=== PATIENT | male | born 1955 | race Caucasian/White ===

== ENCOUNTER 2017-11-15 21:50 | Inpatient (IN) | payer OTHER ==
[2017-11-15] MEDS ORDERED: AZITHROMYCIN 250 MG TAB ONE (22:43)
[2017-11-15] MEDS ORDERED: predniSONE 20 MG TAB ONE (22:43)
[2017-11-15] MEDS ORDERED: ALBUTEROL 2.5 MG/3 ML NEB SOL ONE (22:43)
[2017-11-15] MEDS ORDERED: IPRATROPIUM BROM 0.5MG/2.5ML ONE (22:43)
[2017-11-15] MEDS ORDERED: CEFTRIAXONE/SWI 1gm 0 GM/0 ML SYR ONE (22:44)
[2017-11-15] MEDS ORDERED: NA CHLORIDE 0.9% 2,000 ML ONE (22:44)
[2017-11-15] MEDS ORDERED: Levofloxacin500mg IV 500 MG/100 ML BAG IV ONE (22:49)
--- NOTE | 2017-11-15 22:50 | RAD REPORT ---
EXAM DESCRIPTION: RAD - Chest Single View - 11/15/2017 10:40 pm CLINICAL HISTORY: COUGH Chest pain. COMPARISON: Chest Pa And Lat (2 Views) dated 06/13/2017; CHEST SINGLE VIEW dated 06/27/2012; CHEST PA A ND LAT 2 VIEW dated 06/25/2012; CHEST PA AND LAT 2 VIEW dated 02/02/2011 FINDINGS: Portable technique limits examination quality. Ill-defined opacities are present in both lung bases, greater on the right, suspicious for developing pneumonia. The heart is normal in size. No displaced fractures.
[2017-11-15 22:59] LABS: Absolute Lymphocytes (CBC) 0.9 K/uL (0.7-4.9); Absolute Neutrophil 20.2 K/uL (1.8-8.0); Basophils % 0.5 % (0-1.3); Eosinophils % 0.4 % (0-4.4); Hematocrit 39.5 % (39.6-49.0); Lymphocytes % 3.9 % (15.3-44.8); MCH 34.1 pg (27.0-35.0); MCV 96.3 fL (80-100); MPV 8.9 fL (7.6-11.3); Monocytes % 8.8 % (3.3-12.3); Protime INR 1.32
[2017-11-15] MEDS ORDERED: ACETAMINOPHEN 500 MG TAB ONE (23:13)
[2017-11-15 23:25] LABS: ALT/SGPT 32 U/L (12-78); AST/SGOT 17 U/L (15-37); Albumin 3.5 g/dL (3.4-5.0); Alkaline Phosphatase 56 U/L (45-117); BUN Blood Urea Nitrogen 16 mg/dL (7-18); Bicarbonate 23 mmol/L (21-32); Bilirubin Direct 0.2 mg/dL (0-0.2); Bilirubin Total 0.6 mg/dL (0.2-1.0); Glucose Level 114 mg/dL (74-106); Lipase 139 U/L (73-393); NT PRO-BNP 65 pg/mL (<125); Protein, Total 8.2 g/dL (6.4-8.2); Sodium Level 131 mmol/L (136-145); Troponin (Emerg Dept Use Only) < 0.02 ng/mL (0.0-0.045)
--- NOTE | 2017-11-15 23:45 | EDPHYS ---
Physician Documentation [facility] Name: Feroz Raman Age: 62 yrs Sex: Male : 1955 Arrival Date: 11/15/2017 Time: 21:50 Bed 5 Private MD: ED Physician Jayne Mckinney HPI: 11/15 22:21 This 62 yrs old Male presents to ER via Wheelchair with complaints of Kidney ma2 Pain, Urinary Problem, Fever. 22:21 The patient reports fever, that was measured at 102 degrees Fahrenheit. Associated ma2 signs and symptoms: Pertinent positives: chills, cough, myalgias, Pertinent negatives: abdominal pain, runny nose, skin rash. Severity of symptoms: At their worst the symptoms were moderate in the emergency department the symptoms are unchanged. The patient has experienced a previous episode. Historical: - Allergies: 21:56 PENICILLINS; la1 - PMHx: 21:56 Hypertension; la1 21:56 COPD; la1 - Immunization history:: Adult Immunizations up to date. - Social history:: Smoking status: Patient/guardian denies using tobacco, Patient/guardian denies using alcohol, street drugs, The patient lives with family. - Ebola Screening: : No symptoms or risks identified at this time. - Family history:: not pertinent. ROS: 22:21 ENT: Negative for injury, pain, and discharge, Neck: Negative for injury, pain, and ma2 swelling, Cardiovascular: Negative for chest pain, palpitations, and edema, Abdomen/GI: Negative for abdominal pain, nausea, diarrhea, and constipation, MS/Extremity: Negative for injury and deformity, Neuro: Negative for headache, weakness, numbness, tingling, and seizure. 22:21 Constitutional: Positive for chills, fever, malaise. 22:21 ENT: Negative for pulling at ears, rhinorrhea, sinus congestion. 22:21 Respiratory: Positive for cough, shortness of breath, Negative for dyspnea on exertion, orthopnea, shortness of breath. 22:21 All other systems are negative. Exam: 22:21 Head/Face: Normocephalic, atraumatic. ENT: Nares patent. No nasal discharge, no ma2 septal abnormalities noted. Tympanic membranes are normal and external auditory canals are clear. Oropharynx with no redness, swelling, or masses, exudates, or evidence of obstruction, uvula midline. Mucous membranes moist. Chest/axilla: Normal chest wall appearance and motion. Nontender with no deformity. No lesions are appreciated. Cardiovascular: Regular rate and rhythm with a normal S1 and S2. No gallops, murmurs, or rubs. Normal PMI, no JVD. No pulse deficits. Abdomen/GI: Soft, non-tender, with normal bowel sounds. No distension or tympany. No guarding or rebound. No evidence of tenderness throughout. Back: No spinal tenderness. No costovertebral tenderness. Full range of motion. MS/ Extremity: Pulses equal, no cyanosis. Neurovascular intact. Full, normal range of motion. Neuro: Awake and alert, GCS 15, oriented to person, place, time, and situation. Cranial nerves II-XII grossly intact. Motor strength 5/5 in all extremities. Sensory grossly intact. Cerebellar exam normal. Normal gait. 22:21 Constitutional: The patient appears alert, awake, non-toxic. 22:21 Respiratory: moderate respiratory distress is noted, Respirations: prolonged exhalation, Breath sounds: rales, are located in both bases, Respiratory rate: 24 Vital Signs: 21:56 BP 155 / 106; Pulse 105; Resp 22; Temp 101.3(O); Pulse Ox 95% on R/A; Weight 106.59 kg; la1 Height 6 ft. 0 in. (182.88 cm); 22:30 BP 182 / 96; Pulse 102; Resp 23; Pulse Ox 94% ; ea 23:00 BP 157 / 89; Pulse 103; Resp 22; Pulse Ox 100% on 2 lpm NC; ea 23:05 Temp 99.9; ea 11/16 00:03 BP 122 / 52; Pulse 102; Resp 23; Pulse Ox 97% on 2 lpm NC; ea 01:16 BP 123 / 49; Pulse 85; Resp 19; Pulse Ox 97% on 2 lpm NC; Pain 0/10; ea 01:30 BP 120 / 51; Pulse 80; Resp 19; Temp 98.9; Pulse Ox 97% on 2 lpm NC; Pain 0/10; ea 11/15 21:56 Body Mass Index 31.87 (106.59 kg, 182.88 cm) la1 11/15 22:30 pt placed on O2 at 2L per NC ea MDM: 22:11 Patient medically screened. ma2 22:21 Differential diagnosis: viral Infection, bacterial infection, bronchitis, pneumonia UTI.ma2 23:43 Data reviewed: vital signs, nurses notes, lab test result(s), radiologic studies. ma2 Counseling: I had a detailed discussion with the patient and/or guardian regarding: the historical points, exam findings, and any diagnostic results supporting the discharge/admit diagnosis, the presence of at least one elevated blood pressure reading (>120/80) during this emergency department visit, the need for further work-up and treatment in the hospital. Response to treatment: the patient's symptoms have markedly improved after treatment. ED course: has Sepsis, and pneumonia discussed with dr. hatch . 11/15 22:21 Order name: Flu; Complete Time: 23:42 [facility] 11/15 22:21 Order name: Basic Metabolic Panel; Complete Time: 23:42 [facility] 11/15 22:21 Order name: CBC with Diff [facility] 11/15 22:21 Order name: Creatinine for Radiology; Complete Time: 23:42 [facility] 11/15 22:21 Order name: Hepatic Function; Complete Time: 23:42 [facility] 11/15 22:21 Order name: Lipase; Complete Time: 23:42 [facility] 11/15 22:21 Order name: Magnesium; Complete Time: 23:42 [facility] 11/15 22:21 Order name: NT PRO-BNP; Complete Time: 23:42 [facility] 11/15 22:21 Order name: PT-INR; Complete Time: 23:42 [facility] 11/15 22:21 Order name: Troponin (emerg Dept Use Only); Complete Time: 23:42 [facility] 11/15 22:21 Order name: UA [facility] 11/15 22:21 Order name: Blood Culture Adult (2) [facility] 11/15 22:21 Order name: Lactate; Complete Time: 23:42 [facility] 11/15 23:15 Order name: Manual Differential [facility] 11/15 22:21 Order name: XRAY Chest (1 view); Complete Time: 23:12 [facility] 11/15 23:55 Order name: Basic Metabolic Panel [facility] 11/15 23:55 Order name: Basic Metabolic Panel [facility] 11/15 23:55 Order name: CBC with Automated Diff [facility] 11/15 23:55 Order name: CBC with Automated Diff [facility] 11/15 23:55 Order name: NT PRO-BNP [facility] 11/15 23:55 Order name: NT PRO-BNP [facility] 11/15 23:55 Order name: Troponin I [facility] 11/15 23:55 Order name: Troponin I [facility] 11/15 23:55 Order name: Troponin I [facility] 11/16 01:50 Order name: Urine Dipstick--Ancillary (enter results) [facility] 11/15 22:21 Order name: IV Saline Lock; Complete Time: 00:01 [facility] 11/15 22:21 Order name: Labs collected and sent; Complete Time: 00:01 [facility] 11/15 22:21 Order name: EKG; Complete Time: 22:22 [facility] 11/15 22:21 Order name: Cardiac monitoring; Complete Time: 23:10 [facility] 11/15 22:21 Order name: EKG - Nurse/Tech; Complete Time: 23:10 [facility] 11/15 22:21 Order name: O2 Per Protocol; Complete Time: 23:11 [facility] 11/15 22:21 Order name: O2 Sat Monitoring; Complete Time: 23:11 [facility] 11/15 23:55 Order name: Regular [facility] 11/15 23:55 Order name: EKG Electrocardiogram [facility] 11/15 23:55 Order name: EKG Electrocardiogram [facility] 11/15 23:55 Order name: EKG Electrocardiogram [facility] Administered Medications: 22:38 Drug: Tylenol 1000 mg Route: PO; 11/16 00:00 Follow up: Response: Temperature is decreased 11/15 22:39 Not Given (Patient Refused; allergic): Rocephin 1 grams IV at calculated rate once; ma2 Given slow IV push per pharmacy instructions 22:40 Drug: DuoNeb (3:1) (2.5 mg - 0.5 mg) 3 ml Route: Nebulizer; 11/16 00:31 Follow up: Response: No adverse reaction 11/15 22:40 Drug: predniSONE 40 mg Route: PO; ea 23:15 Follow up: Response: No adverse reaction 22:45 Drug: NS 0.9% 2000 ml Route: IV; Rate: 1 bolus; Site: right antecubital; 11/16 01:00 Follow up: Response: No adverse reaction; IV Status: Completed infusion; IV Intake: ea 2000ml 11/15 22:55 Drug: AZITHromycin 500 mg Route: PO; ea 23:15 Follow up: Response: No adverse reaction ea 22:55 Drug: LevaQUIN 750 mg Volume: 150 ml; Route: IVPB; Infused Over: 90 mins; Site: right ea antecubital; 23:58 Follow up: Response: No adverse reaction; IV Status: Completed infusion ea Disposition: 11/15/17 23:44 Hospitalization ordered by Jayne Hatch for Inpatient Admission. Preliminary diagnosis is Pneumonia due to other specified bacteria. - Bed requested for Telemetry/MedSurg (Inpatient). - Status is Inpatient Admission. ea - Condition is Guarded. - Problem is new. - Symptoms have improved. UTI on Admission? No Signatures: Dispatcher [employer] EDMS Joana Ramírez RN RN Olivier Salgado RN Teri Reyez RN GAVIOTA CintronJayne mesa MD MD ma2 Corrections: (The following items were deleted from the chart) 11/16 00:41 11/15 23:44 Hospitalization Ordered by Jayne Hatch MD for Inpatient Admission. kl Preliminary diagnosis is Pneumonia due to other specified bacteria. Bed requested for Telemetry/MedSurg (Inpatient). Status is Inpatient Admission. Condition is Guarded. Problem is new. Symptoms have improved. UTI on Admission? No. ma2 11/16 01:59 00:41 11/15/2017 23:44 Hospitalization Ordered by Jayne Hatch MD for Inpatient ea Admission. Preliminary diagnosis is Pneumonia due to other specified bacteria. Bed requested for Telemetry/MedSurg (Inpatient). Status is Inpatient Admission. Condition is Guarded. Problem is new. Symptoms have improved. UTI on Admission? No. miky
--- NOTE | 2017-11-15 23:45 | ER ---
Nurse's Notes [facility] Name: Feroz Raman Age: 62 yrs Sex: Male : 1955 Arrival Date: 11/15/2017 Time: 21:50 Bed 5 Private MD: Diagnosis: Pneumonia due to other specified bacteria Presentation: 11/15 21:54 Presenting complaint: Patient states: cough for about a week, urinary frequency for the la1 last few days, fever since yesterday, pt reports "kidney pain" and shortness of breath. Transition of care: patient was not received from another setting of care. Onset of symptoms was November 15, 2017. Risk Assessment: Do you want to hurt yourself or someone else? Patient reports no desire to harm self or others. Initial Sepsis Screen: Does the patient meet any 2 criteria?. Care prior to arrival: None. 21:54 Method Of Arrival: Wheelchair la1 21:54 Acuity: MILY 3 la1 22:20 Initial Sepsis Screen: Does the patient have a suspected source of infection? Yes: ea Other: fever. Historical: - Allergies: 21:56 PENICILLINS; la1 - PMHx: 21:56 Hypertension; la1 21:56 COPD; la1 - Immunization history:: Adult Immunizations up to date. - Social history:: Smoking status: Patient/guardian denies using tobacco, Patient/guardian denies using alcohol, street drugs, The patient lives with family. - Ebola Screening: : No symptoms or risks identified at this time. - Family history:: not pertinent. Screenin:29 Abuse screen: Denies threats or abuse. Nutritional screening: No deficits noted. ea Tuberculosis screening: No symptoms or risk factors identified. Fall Risk Assessment: 21:20 General: Appears uncomfortable, Behavior is calm, appropriate for age. Pain: Complains ea of pain in flank pain. Neuro: Level of Consciousness is awake, alert, obeys commands, Oriented to person, place, time, situation. Cardiovascular: Heart tones S1 S2 present Patient's skin is warm and dry. Respiratory: Airway is patent Respiratory effort is even, Respiratory pattern is tachypnea Breath sounds are coarse bilaterally. GI: Bowel sounds present X 4 quads. : Reports. Derm: Skin is clammy, Skin is normal, Skin temperature is warm. 22:50 Reassessment: Patient and/or family updated on plan of care and expected duration. Pain ea level reassessed. Patient is alert, oriented x 3, equal unlabored respirations, skin warm/dry/pink. 23:50 Reassessment: Patient and/or family updated on plan of care and expected duration. Pain ea level reassessed. Patient is alert, oriented x 3, equal unlabored respirations, skin warm/dry/pink. 11/16 00:30 Reassessment: Patient and/or family updated on plan of care and expected duration. Pain ea level reassessed. Patient is alert, oriented x 3, equal unlabored respirations, skin warm/dry/pink. 01:38 Reassessment: Patient and/or family updated on plan of care and expected duration. Pain ea level reassessed. Patient is alert, oriented x 3, equal unlabored respirations, skin warm/dry/pink. Report called Nader MEEK on second floor. Vital Signs: 11/15 21:56 BP 155 / 106; Pulse 105; Resp 22; Temp 101.3(O); Pulse Ox 95% on R/A; Weight 106.59 kg; la1 Height 6 ft. 0 in. (182.88 cm); 22:30 BP 182 / 96; Pulse 102; Resp 23; Pulse Ox 94% ; ea 23:00 BP 157 / 89; Pulse 103; Resp 22; Pulse Ox 100% on 2 lpm NC; ea 23:05 Temp 99.9; ea 11/16 00:03 BP 122 / 52; Pulse 102; Resp 23; Pulse Ox 97% on 2 lpm NC; ea 01:16 BP 123 / 49; Pulse 85; Resp 19; Pulse Ox 97% on 2 lpm NC; Pain 0/10; ea 01:30 BP 120 / 51; Pulse 80; Resp 19; Temp 98.9; Pulse Ox 97% on 2 lpm NC; Pain 0/10; ea 11/15 21:56 Body Mass Index 31.87 (106.59 kg, 182.88 cm) la1 11/15 22:30 pt placed on O2 at 2L per NC ea ED Course: 21:50 Patient arrived in ED. ds1 21:55 Triage completed. la1 21:56 Arm band placed on right wrist. la1 22:11 Jayne Mckinney MD is Attending Physician. ma2 22:13 Wes Brown, RN is Primary Nurse. ao 22:20 Patient has correct armband on for positive identification. Bed in low position. Call ea light in reach. Side rails up X 1. 22:34 Inserted saline lock: 20 gauge in right antecubital area, using aseptic technique. ea Blood collected. 22:37 X-ray completed. Portable x-ray completed in exam room. Patient tolerated procedure bb2 well. 22:38 XRAY Chest (1 view) In Process Unspecified. EDMS 23:10 EKG done, by ED staff, reviewed by Jayne Mckinney MD. cb2 23:14 Notified ED physician of a critical lab result(s). wbc 23.3. fc 23:44 Jayne Holloway MD is Hospitalizing Provider. ma2 11/16 00:47 No provider procedures requiring assistance completed. Patient admitted, IV remains in ea place. Administered Medications: 11/15 22:38 Drug: Tylenol 1000 mg Route: PO; ea 11/16 00:00 Follow up: Response: Temperature is decreased ea 11/15 22:39 Not Given (Patient Refused; allergic): Rocephin 1 grams IV at calculated rate once; ma2 Given slow IV push per pharmacy instructions 22:40 Drug: DuoNeb (3:1) (2.5 mg - 0.5 mg) 3 ml Route: Nebulizer; ea 11/16 00:31 Follow up: Response: No adverse reaction ea 11/15 22:40 Drug: predniSONE 40 mg Route: PO; ea 23:15 Follow up: Response: No adverse reaction ea 22:45 Drug: NS 0.9% 2000 ml Route: IV; Rate: 1 bolus; Site: right antecubital; ea 11/16 01:00 Follow up: Response: No adverse reaction; IV Status: Completed infusion; IV Intake: ea 2000ml 11/15 22:55 Drug: AZITHromycin 500 mg Route: PO; ea 23:15 Follow up: Response: No adverse reaction ea 22:55 Drug: LevaQUIN 750 mg Volume: 150 ml; Route: IVPB; Infused Over: 90 mins; Site: right ea antecubital; 23:58 Follow up: Response: No adverse reaction; IV Status: Completed infusion ea Intake: 23:20 IV: 100ml; Total: 100ml. ao 23:54 IV: 50ml; Total: 150ml. ao 11/16 01:00 IV: 2000ml; Total: 2150ml. ea Outcome: 11/15 23:44 Decision to Hospitalize by Provider. garcía 11/16 00:00 Instructed on the need for admit, Demonstrated understanding of instructions. ea 01:37 Admitted to Med/surg accompanied by tech, room 205, Report called to Nader MEEK ea 01:37 Condition: stable 01:59 Patient left the ED. ea Signatures: Dispatcher [employer] EDMS Geno Man RN RN Bhavna Merida ds1 Olivier Oviedo RN RN la1 Wes Brown RN Dilan Adorno Elena, RN RN ea Bock, Brittany bb2 Alzahri, Mohammad, MD MD ma2
[2017-11-15] MEDS ORDERED: ACETAMINOPHEN 500 MG TAB PO PRN (23:53)
[2017-11-15] MEDS ORDERED: ALBUTEROL 2.5 MG/3 ML NEB SOL NEB PRN (23:53)
[2017-11-15] MEDS ORDERED: IPRATROPIUM BROM 0.5MG/2.5ML NEB PRN (23:53)
[2017-11-16 00:01] LABS: Blood Morphology Comment NOT SEEN (NOT SEEN); Platelet Estimate ADEQ
[2017-11-16] MEDS ORDERED: ONDANSETRON 4 MG/2 ML VIAL IV PRN (00:40)
[2017-11-16] MEDS ORDERED: MAGNESIUM HYDROXIDE 8% 30 ML PO PRN (00:40)
[2017-11-16] MEDS: IPRATROPIUM BROM 0.5MG/2.5ML NEB SCH ×8 (01:00→20:08)
[2017-11-16] MEDS: ALBUTEROL 2.5 MG/3 ML NEB SOL NEB SCH ×8 (01:00→20:08)
[2017-11-16 01:54] LABS: Urine Appearance CLOUDY; Urine Bilirubin NEGATIVE (NEG); Urine Blood 2+ (NEG); Urine Color YELLOW; Urine Glucose NEGATIVE (NEG); Urine Protein NEGATIVE (NEG); Urine Urobilinogen 0.2 mg/dL (0.2-1.0)
[2017-11-16 01:59] LABS: Urine Microscopic Reflex ORDER UMIC
[2017-11-16 02:03] VITALS: BMI 31.4
[2017-11-16 02:04] LABS: Urine Blood 2+ (NEG); Urine Glucose NEGATIVE (NEG); Urine Protein NEGATIVE (NEG); Urine Specific Gravity <1.005 (1.005-1.030)
[2017-11-16 02:18] LABS: Urine Bacteria <20 /HPF (NONE SEEN); Urine RBC <5 /HPF (NONE SEEN)
[2017-11-16 02:19] LABS: Urine Culture Reflex Order REFLEXED
[2017-11-16 05:25] LABS: Absolute Lymphocytes (CBC) 0.6 K/uL (0.7-4.9); Absolute Neutrophil 21.4 K/uL (1.8-8.0); Basophils % 0.1 % (0-1.3); Hematocrit 39.6 % (39.6-49.0); Lymphocytes % 2.8 % (15.3-44.8); MCH 33.9 pg (27.0-35.0); MCV 96.5 fL (80-100); MPV 8.7 fL (7.6-11.3); Monocytes % 4.4 % (3.3-12.3); RBC Red Blood Cell Count 4.11 M/uL (4.33-5.43)
[2017-11-16 05:43] LABS: Potassium 4.5 mmol/L (3.5-5.1)
[2017-11-16 05:44] LABS: Magnesium 2.3 mg/dL (1.8-2.4); Phosphorus 4.1 mg/dL (2.5-4.9)
[2017-11-16] MEDS: METHYLPREDNISOLONE 125 MG INJ IV SCH ×3 (05:55→17:27)
[2017-11-16] MEDS ORDERED: INFLUENZA VACCINE (for 3y+) 0.5 ML DOSE IMVAC ONE (08:00)
[2017-11-16] MEDS ORDERED: PNEUMOCOCCAL VACCINE 0.5 ML IMVAC ONE (08:00)
--- NOTE | 2017-11-16 08:21 | P.HP ---
Certification for Inpatient Patient admitted to: Inpatient With expected LOS: >2 Midnights Patient will require the following post-hospital care: None Practitioner: I am a practitioner with admitting privileges, knowledge of patient current condition, hospital course, and medical plan of care. Services: Services provided to patient in accordance with Admission requirements found in Title 42 Section 412.3 of the Code of Federal Regulations Patient History Date of Service: 11/16/17 Reason for admission: Fever, cough, congestion History of Present Illness: Patient is a 62yo who was admitted to the hospital with fever shakes and chills. Patient was also having coughing congestion for a a couple of days. Patient's symptoms were slowly getting worse so patient came into the emergency room for further evaluation. Patient also has some complaints of dysuria. In the emergency room, patient's workup revealed that patient had bilateral lower lobe pneumonia. Patient will be admitted to the hospital and started on IV antibiotics. Patient used to be a smoker but quit about 8 years ago. Patient is on medication for COPD. Patient follows up with Pulmonary, Dr. Barrios and if his symptoms do not improve then we may need to Consult Dr. Barrios in a.m. Allergies Penicillins Allergy (Severe, Verified 06/25/12 21:31) Anaphylaxis Home Medications: Amitriptyline [Elavil*] 25 - 50 mg PO BEDTIME 06/26/12 Azithromycin [Zithromax] 1 gm PO UD #1 packet 06/27/12 Ipratrop/Albuterol Inhaler [Combivent*] 2 puff IH Q6HP PRN #1 aer.w.adap Methylprednisolone [Medrol] 2 mg PO UD #1 tablet 06/27/12 - Past Medical/Surgical History Has patient received pneumonia vaccine in the past: No Diabetic: No -: HTN -: COPD -: back surgery-fusion -: ankle right surgery -: finger surgery on the left - Family History father's side Medical History: Cancer, Other (see notes) Notes: lung cancer - Social History Smoking Status: Former smoker Alcohol use: Yes CD- Drugs: No Caffeine use: Yes Place of Residence: Home Review of Systems 10-point ROS is otherwise unremarkable Physical Examination - Vital Signs Temperature: 96.8 F Blood Pressure: 122/57 Pulse: 61 Respirations: 18 Pulse Ox (%): 96 - Physical Exam General: Alert, In no apparent distress, Oriented x3 HEENT: Atraumatic, PERRLA, Mucous membr. moist/pink, EOMI, Sclerae nonicteric Neck: Supple, 2+ carotid pulse no bruit, No LAD, Without JVD or thyroid abnormality Respiratory: Clear to auscultation bilaterally, Normal air movement Cardiovascular: Regular rate/rhythm, Normal S1 S2, No murmurs Gastrointestinal: Normal bowel sounds, Soft and benign, Non-distended, No tenderness Musculoskeletal: No clubbing, No swelling, No tenderness Integumentary: No rashes Neurological: Normal gait, Normal speech, Normal strength at 5/5 x4 extr, Normal tone, Sensation intact, Cranial nerves 3-12 intact, Normal affect Lymphatics: No axilla or inguinal lymphadenopathy - Studies Laboratory Data (last 24 hrs) 11/15/17 22:30: PT 15.6 H, INR 1.32 11/15/17 22:30: Creatinine 1.10 11/15/17 22:30: WBC 23.3 H*, Hgb 14.0, Hct 39.5 L, Plt Count 211 11/15/17 22:30: Sodium 131 L, Potassium 4.0, BUN 16, Creatinine 1.20, Glucose 114 H, Magnesium 2.0, Total Bilirubin 0.6, AST 17, ALT 32, Alkaline Phosphatase 56, Lipase 139 Microbiology Data (last 24 hrs): 11/15/17 22:30 Nasopharnyx Influenza Type A Antigen Screen - Final 11/15/17 22:30 Nasopharnyx Influenza Type B Antigen Screen - Final Assessment & Plan - Problems (Diagnosis) (1) COPD with acute exacerbation Current Visit: Yes Status: Acute (2) Pneumonia of both lower lobes Current Visit: Yes Status: Acute (3) Fever Current Visit: Yes Status: Acute (4) Dysuria Current Visit: Yes Status: Acute (5) HTN (hypertension) Current Visit: Yes Status: Acute - Plan 1. Continue with IV antibiotics 2. Awaiting sputum and blood culture 3. Repeat labs including CBC and renal function in a.m. 4. Will proceed with CT scan of the chest for further evaluation 5. Pulmonary consultation if symptoms do not improve over the next 24-48 hr 6. Continue with nebs as needed 7. O2 per protocol 8. Continue with gentle hydration 9. GI and DVT prophylaxis Discharge Plan: Home Plan to discharge in: Greater than 2 days - Advance Directives Does patient have a Living Will: Yes Does patient have a Durable POA for Healthcare: No - Code Status/Comfort Care Code Status Assessed: Yes Code Status: Full Code Critical Care: No Time Spent Managing PTS Care (In Minutes): 50
[2017-11-16] MEDS: ENOXAPARIN 40 MG/0.4 ML SQ SCH (08:36)
--- NOTE | 2017-11-16 09:36 | RAD REPORT ---
EXAM DESCRIPTION: CT - Thorax W/ Con CLINICAL HISTORY: Chest pain Pneumonia COMPARISON: THORAX W CONTRAST dated 01/06/2008; Chest Single View dated 11/15/2017 FINDINGS: Advanced COPD is present. 7 x 5 mm noncalcified pulmonary nodule is present in the lingula (image 34/56). Linear opacities are present in the right lung base, favored to represent areas of at electasis rather than bacterial pneumonia. No pleural thickening or pleural effusion. No pneumothorax . No axillary, mediastinal or hilar adenopathy. No concerning bony finding. No gross upper abdominal finding. All CT scans are performed using dose optimization technique as appropriate and may include automated exposure control or mA/KV adjustment according to patient size. IMPRESSION: Prominent COPD pattern. Linear opacities predominately in the right lung base likely represents atelectasis rather than devel oping pneumonia. 7 x 5 mm noncalcified nodule in the lingula. According to the 2017 Fleischner guidelines for solid nodules 6-8 mm in size: Single nodule: *Low risk - CT at 6-12 months, then consider CT at 18-24 months. *High risk - CT at 6-12 months, then CT at 18-24 months.
--- NOTE | 2017-11-16 09:45 | EKG ---
Test Date: 2017-11-15 Test Time: 23:06:51 Pomologist: AMANDA MEASUREMENT RESULTS: Intervals: Rate: 105 ME: 146 QRSD: 102 QT: 332 QTc: 438 [place]: P: ME: 146 QRS: -28 T: 141 INTERPRETIVE STATEMENTS: Sinus tachycardia Septal infarct, age undetermined Possible Lateral infarct, age undetermined Abnormal ECG Compared to ECG 06/25/2012 23:28:46 Sinus rhythm no longer present Myocardial infarct finding still present Electronically Signed On 11-16-17 09:45:16 CDT by Beau Soliman
--- NOTE | 2017-11-16 15:23 | PN ---
Date of Progress Note: 11/10/2017 Subjective: The patient seen and examined. Chart reviewed and case discussed with RN. The patient states his breathing is somewhat better. No chest pain. Review of Systems: Negative except as above. Medications: List reviewed. Physical Examination: Vital signs: T-max 101.3 at 10:56 p.m. last night, temperature currently is 96.8, heart rate 51, blood pressure 122/57, respirations 18, O2 96% on 2 L. General: Awake, alert, oriented x3, in no distress. Appears older than stated age, ill-appearing male, obese. CV: S1, S2. No murmurs. Regular rate and rhythm. Peripheral pulses are present. Respiratory: Moving air well bilateral upper apices. Diminished breath sounds at the bases, slightly tachypneic Gastrointestinal: Abdomen is soft, nontender , nondistended. Positive bowel sounds. Extremities: No cyanosis, edema. Neurologic: Nonfocal. Laboratory Data: Sodium 137, potassium 4.5, chloride 104, CO2 26, BUN 14, creatinine 1.1, glucose 179, calcium 8.2, phosphorus 4.1, magnesium 2.3. WBC 23.1, H and H 13.9 and 39.6, platelets 218, neutrophils 92%. No bands. UA shows negative nitrite, 1+ leukocyte esterase, 20 to 50 wbc's, less than 20 bacteria. Influenza screen negative. Blood cultures and urine cultures pending. CT scan of the chest shows linear opacities predominantly in the right lung base likely represents atelectasis rather than developing pneumonia, 7 x 5 mm noncalcified nodule in the lingula. The patient will need repeat CT in 6 to 12 months. Assessment And Plan: 1. A 62-year-old male with chronic obstructive pulmonary disease with acute exacerbation. We will continue nebulizer treatment and steroids. We will continue to monitor O2 saturation. 2. Bilateral lower lobe pneumonia. CT of the chest does show some atelectasis as well. Clinically, patient has symptoms of cough, high fever of 101.3, sputum production. We will continue with IV antibiotics and follow up on cultures. Influenza screen is negative. 3. Urinary tract infection, acute cystitis without hematuria. We will continue with antibiotics. Follow up on urine culture. No further flank pain. 4. Essential hypertension, stable on home medications. 5. Obesity, BMI 31.4. 6. Lung nodule 7 x 5 mm. The patient will need repeat CT of the chest in 6 months. The patient does see Dr. Barrios as outpatient. ELIZABETH Voice ID: [id number] Report ID: [id number] MTDD
--- NOTE | 2017-11-16 16:37 | PN ---
Date of Progress Note: 11/16/2017 Subjective: The patient seen and examined. Chart reviewed and case discussed with RN. The patient states his breathing is somewhat better. No chest pain. No fevers overnight. Review of Systems: Negative except as above. Medications: List reviewed. Physical Examination: Vital signs: T-max 101.3 at 10:56 p.m. last night, temperature currently is 96.8, heart rate 51, blo od pressure 122/57, respirations 18, O2 96% on 2 L. General: Awake, alert, oriented x3, in no distress. Appears older than stated age, ill-appearing ma le, obese. CV: S1, S2. No murmurs. Regular rate and rhythm. Peripheral pulses are present. Respiratory: Moving air well bilateral upper apices. Diminished breath sounds at the bases, slightl y tachypneic Gastrointestinal: Abdomen is soft, nontender, nondistended. Positive bowel sounds. Extremities: No cyanosis, edema. Neurologic: Nonfocal. Laboratory Data: Sodium 137, potassium 4.5, chloride 104, CO2 26, BUN 14, creatinine 1.1, glucose 17 9, calcium 8.2, phosphorus 4.1, magnesium 2.3. WBC 23.1, H and H 13.9 and 39.6, platelets 218, neutr ophils 92%. No bands. UA shows negative nitrite, 1+ leukocyte esterase, 20 to 50 wbc's, less than 2 0 bacteria. Influenza screen negative. Blood cultures and urine cultures pending. CT scan of the c hest shows linear opacities predominantly in the right lung base likely represents atelectasis rather than developing pneumonia, 7 x 5 mm noncalcified nodule in the lingula. The patient will need repea t CT in 6 to 12 months. Assessment And Plan: 1.A 62-year-old male with chronic obstructive pulmonary disease with acute exacerbation. We will con tinue nebulizer treatment and steroids. We will continue to monitor O2 saturation. 2.Bilateral lower lobe pneumonia. CT of the chest does show some atelectasis as well. Clinically, patient has symptoms of cough, high fever of 101.3, sputum production. We will continue with IV anti biotics and follow up on cultures. Influenza screen is negative. 3.Urinary tract infection, acute cystitis without hematuria. We will continue with antibiotics. Fo llow up on urine culture. No further flank pain. 4.Essential hypertension, stable on home medications. 5.Obesity, BMI 31.4. 6.Lung nodule 7 x 5 mm. The patient will need repeat CT of the chest in 6 months. The patient does see Dr. Barrios as outpatient. ELIZABETH Voice ID: [id number] Report ID: [id number]
[2017-11-16] MEDS: CYCLOBENZAPRINE 10 MG TAB PO SCH (21:56)
[2017-11-16] MEDS: Levofloxacin 750mg IV 750 MG/150 ML BAG IV SCH (22:07)
[2017-11-16] MEDS ORDERED: NA CHLORIDE 0.9% 250 ML ONE (22:10)
[2017-11-17] MEDS: METHYLPREDNISOLONE 125 MG INJ IV SCH ×2 (00:44→05:24)
[2017-11-17] MEDS: ALBUTEROL 2.5 MG/3 ML NEB SOL NEB SCH ×5 (01:07→19:46)
[2017-11-17] MEDS: IPRATROPIUM BROM 0.5MG/2.5ML NEB SCH ×5 (01:08→19:46)
[2017-11-17 05:14] LABS: Absolute Neutrophil 23.7 K/uL (1.8-8.0); Basophils % 0.2 % (0-1.3); Hematocrit 39.5 % (39.6-49.0); MCH 33.9 pg (27.0-35.0); MCV 98.8 fL (80-100); MPV 9.1 fL (7.6-11.3); Monocytes % 3.8 % (3.3-12.3)
[2017-11-17 05:38] LABS: Magnesium 2.4 mg/dL (1.8-2.4); Phosphorus 3.2 mg/dL (2.5-4.9); Potassium 3.7 mmol/L (3.5-5.1)
[2017-11-17 06:15] LABS: Arterial Blood Carboxyhemoglob 1.2 % (0-1.5); Blood Gas Oxyhemoglobin 90.3 % (94-97)
[2017-11-17 07:02] LABS: Blood Morphology Comment NOT SEEN (NOT SEEN); Platelet Estimate ADEQ
--- NOTE | 2017-11-17 08:20 | P.CNS ---
Date of Consult: 11/17/17 Reason for Consult: Shortness of breath Chief Complaint: Fever, cough, congestion History of Present Illness: Patient is 62 years of age with a history of COPD has been sick for about 4 weeks initially has some neck discomfort went to see his primary care doctor was prescribed some steroids did not feel any better developed some fever dizziness worsening shortness of breath and was admitted from the hospital with a diagnosis of exacerbation of COPD patient's white count was elevated although no evidence of any infiltrates compliant with his inhalers Allergies Penicillins Allergy (Severe, Verified 06/25/12 21:31) Anaphylaxis Home Medications: Cyclobenzaprine [Flexeril*] 10 mg PO BEDTIME 11/16/17 Diclofenac Na [Voltaren D.r*] 75 mg PO BID 11/16/17 Glycopyrrolate/Formoterol Fum [Bevespi Aerosphere Inhaler] 1 puff PO DAILY 11/16 Lisinopril/Hydrochlorothiazide [Lisinopril-Hctz 20-12.5 mg Tab] 1 tab PO DAILY 11/16/17 - Past Medical/Surgical History Diabetic: No -: HTN -: COPD -: back surgery-fusion -: ankle right surgery -: finger surgery on the left - Family History father's side Medical History: Cancer, Other (see notes) Notes: lung cancer - Social History Smoking Status: Former smoker Alcohol use: Yes CD- Drugs: No Caffeine use: Yes Place of Residence: Home Review of Systems 10-point ROS is otherwise unremarkable General: Weakness Respiratory: Cough, Shortness of Breath Physical Examination Temp Pulse Resp BP Pulse Ox 96.8 F 70 20 149/76 H 95 11/17/17 04:00 11/17/17 04:00 11/17/17 04:00 11/17/17 04:00 11/17/17 04:00 General: Alert, Oriented x3 HEENT: Atraumatic Neck: Supple Respiratory: Clear to auscultation bilaterally, Diminished, Friction rub Cardiovascular: Regular rate/rhythm, Normal S1 S2 - Problems (1) COPD with acute exacerbation Onset Date: 11/16/17 Current Visit: Yes Status: Acute Plan: Patient is 62 years of age admitted with COPD exacerbation he is compliant with his inhalers at home labs reviewed CT scan shows a nodule in the left lower lobe 7 mm labs reviewed patient is mildly hypoxic and hypercapnic normal chemistries no evidence of heart failure slight fever on admission no evidence of pneumonia this appears to be a new nodule was absent in 2007 CT scan will need a followup CT scan in about 6 months repeat PA and lateral chest x-ray change management specialist to p.o. prednisone for 1 I had a ipratropium q. 6 hr possible discharge follow up as an outpatient repeat CBC patient has been afebrile
[2017-11-17] MEDS: LISINOPRIL 20 MG TAB PO SCH ×2 (08:22→08:28)
[2017-11-17] MEDS: GLYCOPYRROLATE PO SCH (08:23)
[2017-11-17] MEDS: hydroCHLOROthiazide 12.5 MG CAP PO SCH ×2 (08:23→08:27)
[2017-11-17] MEDS: FORMOTEROL FUM PO SCH (08:23)
[2017-11-17] MEDS: ENOXAPARIN 40 MG/0.4 ML SQ SCH (08:23)
[2017-11-17] MEDS: predniSONE 20 MG TAB PO SCH ×2 (08:29→21:02)
[2017-11-17] MEDS ORDERED: POTASSIUM 25 MEQ EFFERV TAB PO ONE (09:00)
[2017-11-17] MEDS ORDERED: HOME MED 1 EA UNK (Lisinopril/Hydrochlorothiazide [Lisinopril-Hctz 20-12.5 Mg Tab] 1 TAB) PO SCH (09:00)
--- NOTE | 2017-11-17 10:10 | RAD REPORT ---
EXAM DESCRIPTION: RAD - Chest Pa And Lat (2 Views) - 11/17/2017 9:59 am CLINICAL HISTORY: Pneumonia COMPARISON: November 15, June 13 TECHNIQUE: PA and lateral views of the chest were obtained. FINDINGS: The lungs are clear of a focal consolidation. No failure or volume overload. Patient has a baseline fibrotic lung pattern. Lung base opacification has improved in part due to PA technique and improved inspiratory effort. No progressive lung parenchymal process. Interstitial pattern in each l cass base is very similar to an May study. Heart size is normal and central vasculature is within normal limits. No pleural effusion or pneumot horax seen. No acute bony finding noted. No aortic abnormality. IMPRESSION: Chronic interstitial lung disease worse in each lung base. Lung parenchymal pattern is similar to the May study. Patchy lung base opacity seen November 15 cazares ve cleared.
[2017-11-17] MEDS: ARFORMOTEROL TARTRATE 15 MCG/2 ML VIAL.NEB NEB SCH ×2 (10:15→19:46)
--- NOTE | 2017-11-17 14:39 | ECHO ---
HEIGHT: 6 ft 0 in WEIGHT: 231 lb 5 oz DATE OF STUDY: 11/17/[address]: Salty Barrios MD 2-DIMENSIONAL: YES M.MODE: YES DOPPLER: YES COLOR FLOW: YES TDS: NO PORTABLE: NO DEFINITY: NO BUBBLE STUDY: NO DIAGNOSIS: CONGESTIVE HEART FAILURE CARDIAC HISTORY: CATHERIZATION: NO SURGERY: NO PROSTHETIC VALVE: NO PACEMAKER: NO MEASUREMENTS (cm) DIASTOLIC (NORMALS) SYSTOLIC (NORMALS) IVSd 1.1 (0.6-1.2) LA Diam 4.5 (1.9-4.0) LVEF 62% LVIDd 4.8 (3.5-5.7) LVIDs 3.2 (2.0-3.5) %FS 33% LVPWd 1.2 (0.6-1.2) Ao Diam 3.1 (2.0-3.7) 2 DIMENSIONAL ASSESSMENT: RIGHT ATRIUM: NORAML LEFT ATRIUM: NORMAL RIGHT VENTRICLE: NORMAL LEFT VENTRICLE: NORMAL TRICUSPID VALVE: NORMAL MITRAL VALVE: NORMAL PULMONIC VALVE: NORMAL AORTIC VALVE: NORMAL PERICARDIAL EFFUSION: NONE AORTIC ROOT: NORMAL LEFT VENTRICULAR WALL MOTION: NORMAL. DOPPLER/COLOR FLOW: NORMAL. COMMENTS: NORMAL 2D ECHO WITH DOPPLER. NO WALL MOTION ABNORMALITY. NO EFFUSION. TECHNOLOGIST: DIANA QUINTANA
--- NOTE | 2017-11-17 15:30 | PN ---
Date of Progress Note: 11/17/2017 Subjective: The patient seen and examined. Chart reviewed and case discussed with RN. The patient states that he had some difficulty overnight, got short of breath, had to be placed on oxygen. Review of Systems: Negative except as above. Medications: List reviewed. Physical Examination: Vital Signs: Temperature 98.2, heart rate 89, blood pressure 166/80, respirations 20, O2 92% on 2 L via nasal cannula. General: Awake, alert, oriented x3, some mild distress, appears older than stated age, obese male. CV: S1, S2. No murmurs. Regular rate and rhythm. Peripheral pulses present. Respiratory: Diminished breath sounds. No wheezing or crackles. Gastrointestinal: Abdomen is soft, nontender, nondistended. Positive bowel sounds. Extremities: No clubbing, cyanosis, or edema. Neurologic: Nonfocal. Laboratory Data: Sodium 140, potassium 3.7, chloride 107, CO2 25, BUN 20, creatinine 1, glucose 175, calcium 8.1, phosphorus 3.2, magnesium 2.4, triglycerides 92, cholesterol 200, albumin 127, HDL 55. WBC 25.8, H and H 13.6 and 9.5, platelets 238, neutrophils 92%. Blood cultures, no growth to date. Sputum culture is pending. Urine culture, growing mixed errol. Chest x-ray shows chronic interstitial lung disease, worse in lung base, lung parenchymal pattern is similar to the apical study, patchy lung base opacity seen previously cleared. Assessment And Plan: A 62-year-old male with: 1. Chronic obstructive pulmonary disease with acute exacerbation. We will continue nebulizer treatments and wean off steroids. The patient required supplemental oxygen, we will try to wean off as tolerated. Check room air saturation. Ambulate. 2. Bilateral lower lobe pneumonia, chest x-ray shows clearing. No further fevers. Influenza screen negative. Cultures are negative to date. 3. Urinary tract infection, acute cystitis without hematuria. Urine culture shows mixed errol. 4. Abdominal distention. The patient still passing gas and bowel movements. We will encourage to ambulate. 5. Essential hypertension, stable. 6. Obesity, BMI 31.4. 7. Lung nodules 7 x 5 mm. Repeat PET-CT of chest in 6 months. Follow up with Pulmonology. 8. Gastrointestinal and deep venous thrombosis prophylaxis addressed. Plan: Repeat CBC in a.m., procalcitonin. If afebrile and clinically improving and off oxygen, will likely discharge in a.m. SA/MODL Voice ID: [id number] Report ID: [id number] [facility]
[2017-11-17] MEDS: Levofloxacin 750mg IV 750 MG/150 ML BAG IV SCH (21:02)
[2017-11-17] MEDS: CYCLOBENZAPRINE 10 MG TAB PO SCH (21:02)
[2017-11-18] MEDS: IPRATROPIUM BROM 0.5MG/2.5ML NEB SCH ×2 (01:13→08:00)
[2017-11-18] MEDS: ALBUTEROL 2.5 MG/3 ML NEB SOL NEB SCH ×2 (01:13→08:00)
[2017-11-18 06:07] LABS: Absolute Monocytes 1.1 K/uL (0.1-1.3); Absolute Neutrophil 21.5 K/uL (1.8-8.0); Basophils % 0.2 % (0-1.3); Hematocrit 36.7 % (39.6-49.0); Lymphocytes % 4.4 % (15.3-44.8); MCH 33.6 pg (27.0-35.0); MCV 98.3 fL (80-100); MPV 9.3 fL (7.6-11.3); Monocytes % 4.5 % (3.3-12.3); RBC Red Blood Cell Count 3.73 M/uL (4.33-5.43)
[2017-11-18 06:19] LABS: Potassium 4.2 mmol/L (3.5-5.1)
[2017-11-18] MEDS: ARFORMOTEROL TARTRATE 15 MCG/2 ML VIAL.NEB NEB SCH (08:00)
[2017-11-18] MEDS: FORMOTEROL FUM PO SCH (09:00)
[2017-11-18] MEDS: GLYCOPYRROLATE PO SCH (09:00)
[2017-11-18] MEDS: LISINOPRIL 20 MG TAB PO SCH (09:00)
[2017-11-18] MEDS: hydroCHLOROthiazide 12.5 MG CAP PO SCH (09:07)
[2017-11-18] MEDS: ENOXAPARIN 40 MG/0.4 ML SQ SCH (09:07)
[2017-11-18 09:08] VITALS: BP 139/72; TEMP 97.8
[2017-11-18] MEDS: predniSONE 20 MG TAB PO SCH (09:08)
[2017-11-18 10:26] VITALS: O2SAT 97
--- NOTE | 2017-11-19 06:37 | DS ---
Date of Discharge: 11/18/2017 Admitting Diagnoses: 1.Acute chronic obstructive pulmonary disease exacerbation. 2.Pneumonia. 3.Fever. 4.Dysuria. 5.Essential hypertension. Discharge Diagnoses: 1.Acute chronic obstructive pulmonary disease exacerbation, improved. 2.Bilateral lower lobe pneumonia, resolving. 3.Urinary tract infection, acute cystitis, without hematuria. 4.Abdominal distention, resolved. 5.Essential hypertension, stable. 6.Obesity, body mass index 31.4. 7.Lung nodules, 7 x 5 mm. The patient agreed to repeat CT scan in 6 months. Groundskeeper: Dr. Barrios with Pulmonology. Hospital Course: The patient is a 62-year-old male who comes in with fever, cough, congestion, found to be in COPD exacerbation as well as some pneumonia in the bilateral lower lobes. CT of the chest was done, which showed prominent COPD pattern, linear opacities, predominantly in right lung base, li fatemeh represents atelectasis rather than developing pneumonia, a 7 x 5 mm noncalcified nodule in the l ingula. The patient was made aware of the nodule. He will need a repeat CT scan in 6 months. The [facility] does follow up with Dr. Barrios, who saw the patient in the hospital. The patient was starte d on IV antibiotics, IV steroids, and nebulizer treatments. He did have significant improvement in h is condition and he, however, was requiring supplemental oxygen, but was able to be weaned off. His room air saturations were 97%. He was able to ambulate without any difficulty or dyspnea upon exerti on, or any oxygen desaturation. Echocardiogram was also checked, which showed EF of 62%. No wall mo tion abnormality. No effusions. The patient's repeat chest x-ray showed improvement in his opacitie s. Chronic interstitial lung disease was seen. Lung parenchymal pattern similar to Silke study. Pa tchy lung base opacity had cleared. The patient was then cleared for discharge from Pulmonology formerly [facility]. He would be sent home with a steroid taper and antibiotics, and nebulizer was also set up fo r him. Followup: Follow up with primary care physician in 2 to 3 days. Follow up with manager acquisition, Dr. Cathryn govea, in 2 weeks. Diet: Heart healthy. Activity: As tolerated. No strenuous activity. Physical Examination: General: Awake, alert, oriented x3, in no acute distress. Elderly male, obese. CV: S1, S2. No murmurs. Respiratory: Moving air well bilaterally. Abdomen: Abdomen is soft, nontender, nondistended. Positive bowel sounds. Extremities: No clubbing, cyanosis, edema. Neurologic: Nonfocal. Total time spent discharging the patient was 35 minutes. /WILLIAMS Voice ID: [id number] Report ID: [id number]
== END 2017-11-18 10:13 | disposition home or self-care (01) | DRG 190 ==
LOC: ER 21:50 → ERHOLD 23:52 → 2ND 11-16 01:00
PROVIDERS: ADMIT Hospitalist; ATTEND Family Medicine
DX: J44.0 Chronic obstructive pulmonary disease with (acute) lower respiratory infection (principal); J18.9 Pneumonia, unspecified organism; N30.00 Acute cystitis without hematuria; J44.1 Chronic obstructive pulmonary disease with (acute) exacerbation; Z87.891 Personal history of nicotine dependence; I10 Essential (primary) hypertension; J44.9 Chronic obstructive pulmonary disease, unspecified; R30.0 Dysuria; E66.9 Obesity, unspecified; Z68.31 Body mass index [BMI] 31.0-31.9, adult; R91.1 Solitary pulmonary nodule; R14.0 Abdominal distension (gaseous); Z23 Encounter for immunization
CPT/HCPCS: 36415; 71045; 71046; 71260; 80048; 80061; 80076; 81003; 81015; 82805; 83605; 83690; 83735; 83880; 84100; 84145; 84484; 85025; 85610; 87040; 87070; 87086; 87088; 87205; 87804; 90670; 93005; 93306; 94640; 94760; 96361; 96365; 99285; G0008; G0009; J0696; J1650; J2930; J7030; J7512; J7605; Q2035; Q9967

== ENCOUNTER 2018-02-03 09:49 | Observation (INO) | payer OTHER, SELFPAY ==
[2018-02-03] MEDS ORDERED: ALBUTEROL 2.5 MG/3 ML NEB SOL ONE (10:10)
[2018-02-03] MEDS ORDERED: IPRATROPIUM BROM 0.5MG/2.5ML ONE (10:10)
[2018-02-03] MEDS ORDERED: Magnesium Sulfate 2gm IVPB 2 G/50 ML BAG IV ONE (10:26)
[2018-02-03] MEDS ORDERED: Levofloxacin 750mg IV 750 MG/150 ML BAG IV ONE (10:26)
[2018-02-03] MEDS ORDERED: NA CHLORIDE 0.9% 1,000 ML ONE (10:26)
[2018-02-03] MEDS ORDERED: METHYLPREDNISOLONE 125 MG INJ ONE (10:26)
[2018-02-03] MEDS ORDERED: DEXAMETHASONE 10 MG/ML VIAL ONE (10:26)
[2018-02-03 10:45] LABS: Basophils % 0.5 % (0-1.3); Eosinophils % 6.2 % (0-4.4); Hematocrit 45.8 % (39.6-49.0); Lymphocytes % 7.7 % (15.3-44.8); MCH 33.5 pg (27.0-35.0); MCV 99.4 fL (80-100); MPV 9.5 fL (7.6-11.3); Monocytes % 7.6 % (3.3-12.3); Protime INR 1.06; RBC Red Blood Cell Count 4.61 M/uL (4.33-5.43)
[2018-02-03 10:46] LABS: Absolute Lymphocytes (CBC) 1.1 K/uL (0.7-4.9); Absolute Neutrophil 10.8 K/uL (1.8-8.0)
[2018-02-03 10:59] LABS: Arterial Blood Carboxyhemoglob 0.8 % (0-1.5); Blood Gas Oxyhemoglobin 93.6 % (94-97); Blood O2 Saturation 95.3 % (92-98.5)
--- NOTE | 2018-02-03 11:02 | EDPHYS ---
Physician Documentation [facility] Name: Feroz Raman Age: 62 yrs Sex: Male : 1955 Arrival Date: 02/03/2018 Time: 09:50 Bed 6 Private MD: Salty Barrios K ED Physician Oniel Rowland HPI: 02/03 10:02 This 62 yrs old Male presents to ER via Unassigned with complaints of devin Breathing Difficulty. 10:02 The patient has shortness of breath at rest, with light activity. Onset: The devin symptoms/episode began/occurred 3 day(s) ago. Duration: The symptoms are continuous, and are steadily getting worse. The patient's shortness of breath has no apparent modifying factors. Associated signs and symptoms: The patient has no apparent associated signs or symptoms. Severity of symptoms: At their worst the symptoms were. The patient has not experienced similar symptoms in the past. Historical: - Allergies: 10:04 PENICILLINS; ss - PMHx: 10:04 COPD; Hypertension; ss - Immunization history:: Adult Immunizations. - Social history:: Smoking status: Patient/guardian denies using tobacco. - Ebola Screening: : No symptoms or risks identified at this time. ROS: 10:09 Eyes: Negative for injury, pain, redness, and discharge, ENT: Negative for injury, devin pain, and discharge, Neck: Negative for injury, pain, and swelling, Abdomen/GI: Negative for abdominal pain, nausea, vomiting, diarrhea, and constipation, Back: Negative for injury and pain, : Negative for injury, bleeding, discharge, and swelling, MS/Extremity: Negative for injury and deformity, Skin: Negative for injury, rash, and discoloration, Neuro: Negative for headache, weakness, numbness, tingling, and seizure. 10:09 Constitutional: Positive for body aches, chills, malaise. 10:09 Constitutional: Positive for 10:09 Cardiovascular: Positive for palpitations. 10:09 Respiratory: Positive for cough, dyspnea on exertion, shortness of breath, wheezing, inspiratory, expiratory. Exam: 10:09 Head/Face: Normocephalic, atraumatic. Eyes: Pupils equal round and reactive to light, devin extra-ocular motions intact. Lids and lashes normal. Conjunctiva and sclera are non-icteric and not injected. Cornea within normal limits. Periorbital areas with no swelling, redness, or edema. ENT: Nares patent. No nasal discharge, no septal abnormalities noted. Tympanic membranes are normal and external auditory canals are clear. Oropharynx with no redness, swelling, or masses, exudates, or evidence of obstruction, uvula midline. Mucous membranes moist. Neck: Trachea midline, no thyromegaly or masses palpated, and no cervical lymphadenopathy. Supple, full range of motion without nuchal rigidity, or vertebral point tenderness. No Meningismus. Chest/axilla: Normal chest wall appearance and motion. Nontender with no deformity. No lesions are appreciated. Abdomen/GI: Soft, non-tender, with normal bowel sounds. No distension or tympany. No guarding or rebound. No evidence of tenderness throughout. Back: No spinal tenderness. No costovertebral tenderness. Full range of motion. Male : Normal genitalia with no discharge or lesions. Skin: Warm, dry with normal turgor. Normal color with no rashes, no lesions, and no evidence of cellulitis. 10:09 Constitutional: The patient appears in obvious distress, moderately distressed. 10:09 Cardiovascular: Rate: tachycardic, Rhythm: regular, Pulses: Pulses are 4+ in bilateral radial, brachial, femoral, popliteal, posterior tibial and and dorsalis pedis arteries.. Heart sounds: normal, Edema: is not appreciated, JVD: is not appreciated. 11:15 Musculoskeletal/extremity: ROM: intact in all extremities, full active range of motion, devin full passive range of motion, Circulation is intact in all extremities. Sensation intact. Compartment Syndrome exam of affected extremity: is normal. Joints: All joints appear normal with full range of motion. DVT Exam: No signs of deep vein thrombosis. no pain, no swelling, no tenderness, negative Homans' sign noted on exam, no appreciated bluish discoloration, no erythema, no increased warmth. Vital Signs: 10:00 Pulse 71; Resp 30 S; Pulse Ox 97% on R/A; Weight 99.79 kg; Height 5 ft. 11 in. (180.34 ss cm); 10:05 BP 143 / 95; Pulse 91; Resp 28; Temp 98.7; Pulse Ox 99% on Nebulizer Mask; aj1 11:00 BP 117 / 80; Pulse 82; Resp 18; Pulse Ox 96% on 2 lpm NC; aj1 12:05 BP 130 / 81; Pulse 85; Resp 19; Pulse Ox 98% on 2 lpm NC; aj1 10:00 Body Mass Index 30.68 (99.79 kg, 180.34 cm) ss MDM: 09:55 Patient medically screened. [facility] 10:11 Data reviewed: vital signs, nurses notes, lab test result(s), EKG, radiologic studies, devin plain films. 02/03 10:00 Order name: Basic Metabolic Panel [facility] 02/03 10:00 Order name: CBC with Diff; Complete Time: 10:59 [facility] 02/03 10:00 Order name: LFT's [facility] 02/03 10:00 Order name: Magnesium [facility] 02/03 10:00 Order name: NT PRO-BNP [facility] 02/03 10:00 Order name: PT-INR; Complete Time: 10:59 [facility] 02/03 10:00 Order name: Troponin (emerg Dept Use Only); Complete Time: 11:14 [facility] 02/03 10:00 Order name: Lactate [facility] 02/03 10:00 Order name: Procalcitonin [facility] 02/03 10:00 Order name: Urine Culture [facility] 02/03 10:00 Order name: Lipase; Complete Time: 11:14 [facility] 02/03 10:01 Order name: Flu [facility] 02/03 10:02 Order name: Basic Metabolic Panel; Complete Time: 11:14 [facility] 02/03 10:02 Order name: Liver (Hepatic) Function; Complete Time: 11:14 [facility] 02/03 10:00 Order name: XRAY Chest (1 view); Complete Time: 11:14 [facility] 02/03 10:00 Order name: EKG; Complete Time: 10:02 [facility] 02/03 10:00 Order name: Cardiac monitoring; Complete Time: 11:34 [facility] 02/03 10:00 Order name: EKG - Nurse/Tech; Complete Time: 11:34 [facility] 02/03 10:02 Order name: Magnesium; Complete Time: 11:14 [facility] 02/03 10:02 Order name: NT PRO-BNP; Complete Time: 11:14 [facility] 02/03 10:11 Order name: ABG; Complete Time: 11:14 [facility] 02/03 10:11 Order name: BIPAP [facility] 02/03 10:22 Order name: Blood Culture Adult (2) [facility] 02/03 10:00 Order name: IV Saline Lock; Complete Time: 11:33 [facility] 02/03 10:00 Order name: Labs collected and sent; Complete Time: 11:33 [facility] 02/03 10:00 Order name: O2 Per Protocol; Complete Time: 11:33 [facility] 02/03 10:00 Order name: O2 Sat Monitoring; Complete Time: 11:34 [facility] 02/03 10:12 Order name: IV Saline Lock - Large Bore; Complete Time: 11:31 [facility] Administered Medications: 10:03 Drug: Albuterol - atroVENT (3:1) (2.5 mg - 0.5 mg) 3 ml Route: Nebulizer; aj1 10:45 Follow up: Response: No adverse reaction aj1 10:30 Drug: NS 0.9% 500 ml Route: IV; Rate: bolus; Site: left antecubital; aj1 12:30 Follow up: IV Status: Completed infusion; IV Intake: 500ml aj1 10:30 Drug: SOLU-Medrol 125 mg Route: IVP; Site: left antecubital; aj1 12:31 Follow up: Response: No adverse reaction aj1 10:30 Drug: Decadron - Dexamethasone 10 mg Route: IVP; Site: left antecubital; aj1 12:32 Follow up: Response: No adverse reaction aj1 10:30 Drug: Magnesium Sulfate 2 grams Route: IVPB; Infused Over: 2 hrs; Site: left aj antecubital; 12:11 Follow up: IV Status: Completed infusion; IV Intake: 100ml aj1 11:32 Drug: NS 0.9% 1000 ml Route: IV; Rate: 125 ml/hr; Site: left antecubital; aj1 13:40 Follow up: IV Status: Infusion continued upon admission aj1 12:10 Drug: levofloxacin 750 mg Volume: 150 ml; Route: IVPB; Infused Over: 90 mins; Site: [facility] left antecubital; 13:00 Follow up: IV Status: Infusion continued upon admission aj1 Disposition: 02/03/18 11:01 Hospitalization ordered by Jeet Waggoner for Inpatient Admission. Preliminary diagnosis are Chronic obstructive pulmonary disease with (acute) exacerbation, Essential (primary) hypertension. - Bed requested for Telemetry/MedSurg (Inpatient). - Status is Inpatient Admission. aj1 - Condition is Fair. - Problem is new. - Symptoms have improved. UTI on Admission? No Signatures: Dispatcher [employer] EDMS Richelle Perez Ladan Álvarez RN RN aj1 Oniel Rowland MD MD cha Smirch, Shelby RN RN ss Corrections: (The following items were deleted from the chart) 11:48 11:01 Hospitalization Ordered by Jeet Waggoner MD for Inpatient Admission. Preliminary bd diagnosis is Chronic obstructive pulmonary disease with (acute) exacerbation; Essential (primary) hypertension. Bed requested for Telemetry/MedSurg (Inpatient). Status is Inpatient Admission. Condition is Fair. Problem is new. Symptoms have improved. UTI on Admission? No. devin 13:44 11:48 02/03/2018 11:01 Hospitalization Ordered by Jeet Waggoner MD for Inpatient aj1 Admission. Preliminary diagnosis is Chronic obstructive pulmonary disease with (acute) exacerbation; Essential (primary) hypertension. Bed requested for Telemetry/MedSurg (Inpatient). Status is Inpatient Admission. Condition is Fair. Problem is new. Symptoms have improved. UTI on Admission? No. bd
--- NOTE | 2018-02-03 11:02 | ER ---
Nurse's Notes [facility] Name: Feroz Raman Age: 62 yrs Sex: Male : 1955 Arrival Date: 02/03/2018 Time: 09:50 Bed 6 Private MD: Salty Barrios K Diagnosis: Chronic obstructive pulmonary disease with (acute) exacerbation;Essential (primary) hypertension Presentation: 02/03 10:00 Presenting complaint: Patient states: Shortness of breath x 2 days that has become much ss worse this morning. Denies fever. Transition of care: patient was not received from another setting of care. Onset of symptoms was February 01, 2018. Risk Assessment: Do you want to hurt yourself or someone else?. Care prior to arrival: None. 10:00 Method Of Arrival: Wheelchair ss 10:00 Acuity: MILY 2 ss 13:00 Initial Sepsis Screen: Does the patient meet any 2 criteria? RR > 20 per min. HR > 90 aj1 bpm. Yes Does the patient have a suspected source of infection? No. Patient's initial sepsis screen is negative. Triage Assessment: 10:00 Respiratory: the patient has severe shortness of breath. aj1 10:00 Respiratory: Onset: The symptoms/episode began/occurred 2 days ago. aj1 Historical: - Allergies: 10:04 PENICILLINS; ss - PMHx: 10:04 COPD; Hypertension; ss - Immunization history:: Adult Immunizations. - Social history:: Smoking status: Patient/guardian denies using tobacco. - Ebola Screening: : No symptoms or risks identified at this time. Screenin:05 Abuse screen: Denies threats or abuse. Denies injuries from another. Nutritional aj1 screening: No deficits noted. Tuberculosis screening: No symptoms or risk factors identified. 13:00 Fall Risk No fall in past 12 months (0 pts). No secondary diagnosis (0 pts). IV access aj1 (20 points). Ambulatory Aid- None/Bed Rest/Nurse Assist (0 pts). Gait- Normal/Bed Rest/Wheelchair (0 pts) Mental Status- Oriented to own ability (0 pts). Assessment: 10:05 General: Appears uncomfortable, Behavior is cooperative, agitated, restless. Pain: aj1 Complains of pain in chest Pain currently is 3 out of 10 on a pain scale. Quality of pain is described as tightness. Neuro: Level of Consciousness is awake, alert, obeys commands. Cardiovascular: Reports chest pain, shortness of breath, Heart tones S1 S2 present Capillary refill < 3 seconds Rhythm is sinus rhythm. Respiratory: Reports shortness of breath at rest Airway is patent Respiratory effort is even, labored, Respiratory pattern is regular, symmetrical, tachypnea Breath sounds with wheezes bilaterally. GI: No signs and/or symptoms were reported involving the gastrointestinal system. Abdomen is round. : No signs and/or symptoms were reported regarding the genitourinary system. EENT: No signs and/or symptoms were reported regarding the EENT system. Derm: No signs and/or symptoms reported regarding the dermatologic system. Skin is diaphoretic, Skin is red. Musculoskeletal: No signs and/or symptoms reported regarding the musculoskeletal system. Circulation, motion, and sensation intact. 11:00 Reassessment: Patient and/or family updated on plan of care and expected duration. Pain aj1 level reassessed. General: Appears in no apparent distress. comfortable, Behavior is calm, cooperative, appropriate for age. Neuro: Level of Consciousness is awake, alert, obeys commands. Cardiovascular: Patient's skin is warm and dry. Rhythm is sinus rhythm. Respiratory: Airway is patent Respiratory effort is even, unlabored, Respiratory pattern is regular, symmetrical. Derm: Skin is dry, Skin is pink, warm \T\ dry. normal. 12:05 Reassessment: Patient appears in no apparent distress at this time. No changes from aj1 previously documented assessment. Patient and/or family updated on plan of care and expected duration. Pain level reassessed. Patient is alert, oriented x 3, equal unlabored respirations, skin warm/dry/pink. Vital Signs: 10:00 Pulse 71; Resp 30 S; Pulse Ox 97% on R/A; Weight 99.79 kg; Height 5 ft. 11 in. (180.34 ss cm); 10:05 BP 143 / 95; Pulse 91; Resp 28; Temp 98.7; Pulse Ox 99% on Nebulizer Mask; aj1 11:00 BP 117 / 80; Pulse 82; Resp 18; Pulse Ox 96% on 2 lpm NC; aj1 12:05 BP 130 / 81; Pulse 85; Resp 19; Pulse Ox 98% on 2 lpm NC; aj1 10:00 Body Mass Index 30.68 (99.79 kg, 180.34 cm) ED Course: 09:50 Patient arrived in ED. sb2 09:50 Will Barrios MD is Private Physician. sb2 09:51 Salty Barrios MD is Private Physician. sb2 09:55 Oniel Rowland MD is Attending Physician. devin 10:00 Arm band placed on right wrist. ss 10:04 Triage completed. ss 10:05 Patient has correct armband on for positive identification. security monitor on. Pulse aj1 ox on. NIBP on. 10:05 No provider procedures requiring assistance completed. Initial lab(s) drawn, by nh, aj1 sent to lab. First set of blood cultures drawn. Inserted saline lock: 20 gauge in left antecubital area, using aseptic technique. Blood collected. 10:27 Second set of blood cultures drawn by nh. aj1 10:34 EKG done, by trim technician. reviewed by Oniel Rowland MD. at1 10:55 X-ray completed. Portable x-ray completed in exam room. Patient tolerated procedure ls3 well. 10:59 Jeet Waggoner MD is Hospitalizing Provider. [facility] 11:03 XRAY Chest (1 view) In Process Unspecified. EDMS 11:08 Ladan Hannah, GAVIOTA is Primary Nurse. aj1 12:30 Report given to GAVIOTA Zuniga on 4th floor. aj1 13:00 Patient admitted, IV remains in place. aj1 Administered Medications: 10:03 Drug: Albuterol - atroVENT (3:1) (2.5 mg - 0.5 mg) 3 ml Route: Nebulizer; aj1 10:45 Follow up: Response: No adverse reaction aj1 10:30 Drug: NS 0.9% 500 ml Route: IV; Rate: bolus; Site: left antecubital; aj1 12:30 Follow up: IV Status: Completed infusion; IV Intake: 500ml aj1 10:30 Drug: SOLU-Medrol 125 mg Route: IVP; Site: left antecubital; aj1 12:31 Follow up: Response: No adverse reaction aj1 10:30 Drug: Decadron - Dexamethasone 10 mg Route: IVP; Site: left antecubital; aj1 12:32 Follow up: Response: No adverse reaction aj1 10:30 Drug: Magnesium Sulfate 2 grams Route: IVPB; Infused Over: 2 hrs; Site: left aj antecubital; 12:11 Follow up: IV Status: Completed infusion; IV Intake: 100ml aj1 11:32 Drug: NS 0.9% 1000 ml Route: IV; Rate: 125 ml/hr; Site: left antecubital; aj1 13:40 Follow up: IV Status: Infusion continued upon admission aj1 12:10 Drug: levofloxacin 750 mg Volume: 150 ml; Route: IVPB; Infused Over: 90 mins; Site: [facility] left antecubital; 13:00 Follow up: IV Status: Infusion continued upon admission aj1 Intake: 12:11 IV: 100ml; Total: 100ml. aj1 12:30 IV: 500ml; Total: 600ml. aj1 Outcome: 11:01 Decision to Hospitalize by Provider. [facility] 13:00 Admitted to Tele accompanied by tech, via wheelchair. aj1 13:00 Condition: stable 13:00 Discharge instructions given to patient, Instructed on the need for admit, Demonstrated understanding of instructions. 13:44 Patient left the ED. aj1 Signatures: Dispatcher [employer] Ladan Ramos, RN RN aj1 Oniel Rowland MD MD cha Smirch, Shelby, RN RN Ashley Morris, health and wellness sales consultant EKG Tat1 Candy Austin2 Caro Gómez3
[2018-02-03 11:04] LABS: Albumin 4.6 g/dL (3.4-5.0); Bilirubin Direct 0.1 mg/dL (0-0.2); Bilirubin Total 0.4 mg/dL (0.2-1.0); Magnesium 2.2 mg/dL (1.8-2.4); Potassium 4.6 mmol/L (3.5-5.1); Protein, Total 8.6 g/dL (6.4-8.2); Troponin (Emerg Dept Use Only) 0.02 ng/mL (0.0-0.045)
--- NOTE | 2018-02-03 11:07 | RAD REPORT ---
EXAM DESCRIPTION: RAD - Chest Single View - 02/03/2018 10:57 am CLINICAL HISTORY: Shortness of breath, COPD, cough COMPARISON: November 17, 2017, May 2017 TECHNIQUE: AP portable chest image was obtained 1039 hours . FINDINGS: Interstitial fibrotic lung changes are present in each base. Fibrosis and bullous change n oted in the upper lung cowan. Interstitial pattern is not clearly different back to May imaging. C onsolidation, mass an acute failure are not seen. Trachea is midline. Heart and vasculature are anuel l. No measurable pleural effusion and no pneumothorax. No acute bony abnormality seen. No acute aorti c findings suspected. IMPRESSION: Fibrotic an obstructive lung changes are present matching prior imaging. No acute finding identifiable.
[2018-02-03] MEDS ORDERED: ONDANSETRON 4 MG/2 ML VIAL IV PRN (11:36)
[2018-02-03] MEDS ORDERED: ACETAMINOPHEN 500 MG TAB PO PRN (11:36)
--- NOTE | 2018-02-03 12:48 | EKG ---
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
[2018-02-03 13:27] VITALS: BMI 31.0
[2018-02-03] MEDS ORDERED: LORazepam 2 MG/ML VIAL IV PRN (15:02)
[2018-02-03] MEDS: METHYLPREDNISOLONE 40 MG INJ IV SCH (15:55)
[2018-02-03 16:10] LABS: Urine Appearance CLEAR; Urine Bilirubin NEGATIVE (NEG); Urine Blood TRACE (NEG); Urine Color YELLOW; Urine Glucose NEGATIVE (NEG); Urine Protein NEGATIVE (NEG); Urine Specific Gravity 1.015 (1.005-1.030); Urine Urobilinogen 0.2 mg/dL (0.2-1.0)
[2018-02-03 16:42] LABS: Urine Bacteria <20 /HPF (NONE SEEN); Urine Culture Reflex Order NOT NEEDED; Urine Mucus 1+ /HPF (NONE SEEN); Urine RBC <5 /HPF (NONE SEEN)
[2018-02-03] MEDS: DICLOFENAC SOD D.R. 75 MG TAB PO SCH (20:13)
[2018-02-03] MEDS ORDERED: ZOLPIDEM TARTRATE 10 MG TABLET PO ONE (22:58)
[2018-02-03] MEDS: IPRATROPIUM BROM 0.5MG/2.5ML NEB PRN (23:10)
[2018-02-03] MEDS: ALBUTEROL 2.5 MG/3 ML NEB SOL NEB PRN (23:10)
[2018-02-04] MEDS: METHYLPREDNISOLONE 40 MG INJ IV SCH ×2 (00:28→08:17)
--- NOTE | 2018-02-04 03:58 | HP ---
Date of Admission: 02/03/2018 Chief Complaint: Shortness of breath. History Of Present Illness: The patient is a 62-year-old male with past medical history of COPD, hypertension, non-oxygen dependent, who recently has received his nebulizer machine and comes in with worsening shortness of breath, cough, but no sputum production. The patient also reports some chills, but denies any fevers. The patient does report ill contacts, specifically his , with similar upper respiratory tract symptoms. No nausea, vomiting, or chest pain. The patient's symptoms are constant, moderate, and progressively worsening. Therefore, came in to the ER for further evaluation. His vital signs on arrival showed oxygen level of 97%. He was very tachypneic and had to be placed on BiPAP supplemental oxygen. The patient's ABG showed pH of 7.36, pCO2 of 46. His white count was elevated at 13.9. His chest x-ray did not show any acute infiltrates. Did show fibrotic and obstructive lung changes similar to previous. The patient was given breathing treatments, IV steroids, and IV fluids. Refer to admission. The patient also received 2 g of magnesium. His influenza screen was negative. Cultures were also obtained. When seen in the ER, the patient was awake, alert, oriented x3, in some mild respiratory distress, feeling significantly better after the breathing treatment. Past Medical History: Hypertension and COPD. Past Surgical History: Back surgery, fusion, ankle surgery on the right, and finger surgery on the left. Allergies: TO PENICILLIN, CAUSES ANAPHYLAXIS. Home Medications: List reviewed. Social History: The patient is a former smoker. Does drink daily, 2 to 4 beers per day. No illicit drug use. The patient is , lives at home, independent in his activities of daily living. Family History: Father's side has cancer, lung cancer. Review of Systems: An 11-point system reviewed, negative except as per HPI. Physical Examination: Vital Signs: Temperature 98.7, heart rate 71, respirations 30, blood pressure 143/95, and O2 of 97% on 2 L via nasal cannula. General: Awake, alert, and oriented x3. Appears older than stated age, ill- appearing male, in some mild respiratory distress, obese. HEENT: Normocephalic, atraumatic. PERRLA. EOMI. Dry mucous membranes. Oropharynx is clear. Conjunctivae anicteric. Neck: Supple. No JVD. Trachea midline. CV: S1, S2. Regular rate and rhythm. Peripheral pulses present. No murmurs. Respiratory: Diminished breath sounds bilaterally. Diffuse wheezing heard. The patient is tachypneic with use of accessory muscles. No stridor. Gastrointestinal: Abdomen is soft, nontender, nondistended. Positive bowel sounds. No guarding or rigidity. Extremities: No clubbing, cyanosis, or edema. No calf tenderness. Neurologic: Cranial nerves 2 through 12 are intact grossly. No focal neurological deficit. Speech is normal. Strength is 5/5, bilateral upper and lower extremities. Sensation intact to light touch. Psychiatric: Mood is okay. Affect is full. Insight and judgment are fair. Laboratory Data: Sodium 139, potassium 4.6, chloride 105, CO2 of 27, BUN 15, creatinine 1.1, glucose 117. Lactate 2.2. Repeat lactate level is 3.2. Calcium 9, magnesium 2.2. Troponin less than 0.02. Albumin 4.6. Procalcitonin less than 0.05. ABG; pH 7.36, pCO2 of 46.5, pO2 of 85, bicarb 25. UA is negative. INR 1.06. WBC 13.9, H and H 15.4 and 45.8, platelets 226 , and neutrophils 78%. Influenza screen negative. Chest x-ray, personally reviewed, shows fibrotic and obstructive lung changes present, matching prior imaging. No acute finding identifiable. EKG shows sinus rhythm, rate of 92, left axis deviation. Assessment And Plan: A 62-year-old male with; 1. Acute chronic obstructive pulmonary disease exacerbation. We will start patient on nebulizer treatments with albuterol and ipratropium q.4 hours p.r.n. Continue with IV steroids and supplemental oxygenation. 2. Essential hypertension. We will resume lisinopril. 3. Alcohol dependence. We will place on multivitamins and Ativan p.r.n. Watch for signs of withdrawal using [facility] protocol. We will follow up on blood cultures. The patient does have a slightly elevated white count at 13.9 with neutrophilia. However, chest x-ray does not show any acute infiltrates. UA is negative. We will continue to monitor. No indications for antibiotics at this time. Plan to admit the patient to [facility], place as inpatient with remote cardiac telemetry. Likely discharge in the next 24 to 48 hours. 4. Obesity. Body mass index of 31. ELIZABETH Voice ID: [id number] MTDD
[2018-02-04 06:08] LABS: Absolute Lymphocytes (CBC) 0.6 K/uL (0.7-4.9); Absolute Monocytes 0.3 K/uL (0.1-1.3); Absolute Neutrophil 10.6 K/uL (1.8-8.0); Basophils % 0.6 % (0-1.3); Eosinophils % 0.1 % (0-4.4); Hematocrit 40.7 % (39.6-49.0); Lymphocytes % 5.1 % (15.3-44.8); MCV 98.4 fL (80-100); MPV 9.8 fL (7.6-11.3); Monocytes % 2.3 % (3.3-12.3); RBC Red Blood Cell Count 4.14 M/uL (4.33-5.43)
[2018-02-04 06:19] LABS: Potassium 4.8 mmol/L (3.5-5.1)
[2018-02-04 07:41] LABS: Blood Morphology Comment NOT SEEN (NOT SEEN); Platelet Estimate ADEQ; Urine White Blood Cell Casts OK
[2018-02-04] MEDS: IPRATROPIUM BROM 0.5MG/2.5ML NEB PRN ×3 (07:50→17:40)
[2018-02-04] MEDS: ALBUTEROL 2.5 MG/3 ML NEB SOL NEB PRN ×3 (07:50→17:40)
[2018-02-04] MEDS: THIAMINE HCL 100 MG TABLET PO SCH (08:16)
[2018-02-04] MEDS: DICLOFENAC SOD D.R. 75 MG TAB PO SCH ×2 (08:16→21:55)
[2018-02-04] MEDS: hydroCHLOROthiazide 12.5 MG CAP PO SCH (08:17)
[2018-02-04] MEDS: LISINOPRIL 20 MG TAB PO SCH (08:17)
[2018-02-04] MEDS: FOLIC ACID 1 MG TABLET PO SCH (08:17)
[2018-02-04] MEDS: FORMOTEROL FUM PO SCH (08:18)
[2018-02-04] MEDS: GLYCOPYRROLATE PO SCH (08:18)
--- NOTE | 2018-02-04 18:16 | PN ---
Date of Progress Note: 02/04/2018 History: The patient seen and examined. Chart reviewed and case discussed with RN. The patient sta fermin his breathing has improved, however, still having some wheezing. Medications: List reviewed. Physical Examination: Vital Signs: Temperature 99.2, heart rate 89, blood pressure 121/62, respirations 20, O2 97% on 2 L. O2 saturations on room air 86%. General: Awake, alert, oriented x3, somewhat ill-appearing male, appears older than stated age. Obe se. CV: S1, S2. No murmurs. Peripheral pulses present. Respiratory: Diminished breath sounds. No wheezing heard throughout. Gastrointestinal: Abdomen is soft, nontender, nondistended. Positive bowel sounds. Extremities: No clubbing, cyanosis, or edema. Neurologic: Nonfocal. Laboratory Data: Sodium 139, potassium 4.8, chloride 105, CO2 29, BUN 19, creatinine 1.1, glucose 14 4, calcium 8.5. WBC 11.5, H and H 14.1, 40.7, platelets 222, neutrophils 91%. Blood cultures no [facility] to date. Assessment And Plan: A 62-year-old male with: 1.Acute chronic obstructive pulmonary disease exacerbation, slightly improved, however, patient stil l hypoxic requiring supplemental oxygen. We will continue nebulizer treatments and IV steroids. 2.Essential hypertension stable on home medications. 3.Alcohol dependence. Continue Ativan p.r.n. and multivitamin. No acute signs of withdrawal at thi s time. 4.Gastrointestinal and deep venous thrombosis prophylaxes addressed. Plan: Wean off oxygen as tolerated. May need home oxygen to be set up as room air saturations are l ow. We will try to wean steroids. Discharge once improved. /MODBecca Voice ID: [id number] Report ID: [id number]
[2018-02-04] MEDS ORDERED: METHYLPREDNISOLONE 40 MG INJ IV SCH (21:00)
[2018-02-05] MEDS: ALBUTEROL 2.5 MG/3 ML NEB SOL NEB PRN (01:15)
[2018-02-05] MEDS: IPRATROPIUM BROM 0.5MG/2.5ML NEB PRN (01:15)
[2018-02-05 06:12] LABS: Absolute Lymphocytes (CBC) 0.7 K/uL (0.7-4.9); Absolute Monocytes 0.5 K/uL (0.1-1.3); Absolute Neutrophil 13.4 K/uL (1.8-8.0); Basophils % 0.1 % (0-1.3); Hematocrit 38.4 % (39.6-49.0); Lymphocytes % 4.6 % (15.3-44.8); MCH 33.4 pg (27.0-35.0); MCV 98.5 fL (80-100); MPV 9.5 fL (7.6-11.3); Monocytes % 3.3 % (3.3-12.3)
[2018-02-05 06:18] LABS: Potassium 4.8 mmol/L (3.5-5.1)
[2018-02-05 08:17] LABS: Blood Morphology Comment NOT SEEN (NOT SEEN); Platelet Estimate ADEQ; Urine White Blood Cell Casts OK
[2018-02-05] MEDS: GLYCOPYRROLATE PO SCH (09:00)
[2018-02-05] MEDS: DULERA 100/5 (MOMETASONE/FORMOTEROL) INHALER IH SCH ×2 (09:00→10:38)
[2018-02-05] MEDS: FORMOTEROL FUM PO SCH (09:00)
[2018-02-05] MEDS ORDERED: predniSONE 20 MG TAB PO SCH (09:00)
[2018-02-05] MEDS: LISINOPRIL 20 MG TAB PO SCH (09:12)
[2018-02-05] MEDS: FOLIC ACID 1 MG TABLET PO SCH (09:12)
[2018-02-05] MEDS: THIAMINE HCL 100 MG TABLET PO SCH (09:12)
[2018-02-05] MEDS: hydroCHLOROthiazide 12.5 MG CAP PO SCH (09:13)
[2018-02-05] MEDS: DICLOFENAC SOD D.R. 75 MG TAB PO SCH (09:14)
[2018-02-05 12:21] VITALS: O2SAT 92
[2018-02-05 12:43] VITALS: BP 127/67; TEMP 98.9
--- NOTE | 2018-02-05 19:13 | DS ---
Date of Discharge: 02/05/2018 Discharge Diagnoses: 1.Acute chronic obstructive pulmonary disease exacerbation, improved. 2.Hypoxia, improved. Room air saturation 88% after a 6 minute walk, 92% on room air at rest. 3.Essential hypertension, stable. 4.Obesity, BMI 31. 5.Alcohol dependence. Continue multivitamins, folate and thiamine. Hospital Course: The patient is a 62-year-old male, history of COPD, hypertension, non-oxygen depend ent, comes in with shortness of breath. The patient was started on nebulizer treatments for COPD exa cerbation. Chest x-ray did not show any acute infiltrates. His influenza screen was negative. The patient had some mildly elevated pCO2 on his ABG at 46, did have some elevated white count. However, no signs of infection. The patient did report that his nebulizer machine did not arrive until sever al months after his previous discharge. The patient does continue to use nicotine via chewing tobacc o. The patient was counseled. The patient was started on multivitamin, thiamine and folate for his alcohol dependency. He did not show any signs of withdrawal. Ativan was used p.r.n. The patient di d well overall. He did require supplemental oxygenation and was initially hypoxic. His inhalers wer e adjusted and his O2 saturation did improve to about 92% on room air. Even with exertion, his O2 sa turations did not drop below 88. The patient was then doing well. He was not having any significant symptoms of shortness of breath at rest and was able to be weaned off oxygen. His wheezing improved significantly. He was then cleared for discharge. Followup: The patient is to follow up with his PCP in 2 to 3 days and to follow up with Dr. Barrios in 2 weeks. The patient was seen by Dr. Barrios in October of this year. Diet: Heart healthy. Medications: As per medication reconciliation list. Activity: No strenuous activity. Physical Examination: General: Awake, alert, oriented x3. Obese male, not in any acute distress. CV: S1, S2. No murmurs. Regular rate and rhythm. Respiratory: Moving air well bilaterally. No wheezing. Gastrointestinal: Abdomen is soft, nontender, nondistended. Positive bowel sounds. Extremities: No clubbing, cyanosis, or edema. Neurologic: Nonfocal. SA/MODL Voice ID: [id number] Report ID: [id number]
== END 2018-02-05 13:25 | disposition home or self-care (01) ==
LOC: ER 09:49 → ERHOLD 11:26 → 4TH 12:49
PROVIDERS: ADMIT Family Medicine; ATTEND Family Medicine
DX: J44.1 Chronic obstructive pulmonary disease with (acute) exacerbation (principal); R09.02 Hypoxemia; I10 Essential (primary) hypertension; E66.9 Obesity, unspecified; Z68.31 Body mass index [BMI] 31.0-31.9, adult; F10.20 Alcohol dependence, uncomplicated; Z72.0 Tobacco use
CPT/HCPCS: 36415; 71045; 80048; 80076; 81001; 82805; 83605; 83690; 83735; 83880; 84145; 84484; 85025; 85610; 87040; 87804; 93005; 94640; 94760; 96361; 96365; 96375; 99285; G0378; J1100; J2920; J2930; J3475; J7030; J7512; J7606

== ENCOUNTER 2024-01-20 21:32 | Inpatient (IN) | payer OTHER ==
[2024-01-20 22:10] LABS: Absolute Lymphocytes (CBC) 0.4 K/uL (0.7-4.9); Absolute Monocytes 0.7 K/uL (0.1-1.3); Absolute Neutrophil 14.1 K/uL (1.8-8.0); Basophils % 0.3 % (0-1.3); Eosinophils % 0.1 % (0-4.4); Hematocrit 41.9 % (39.6-49.0); Hemoglobin 13.9 g/dL (13.6-17.9); Lymphocytes % 2.9 % (15.3-44.8); MCH 32.8 pg (27.0-35.0); MCHC 33.2 g/dL (32.0-36.0); MCV 98.6 fL (80-100); MPV 8.7 fL (7.6-11.3); Monocytes % 4.4 % (3.3-12.3); Neutrophils % 92.3 % (41.7-73.7); Platelets 222 thou/uL (152-406); RBC Red Blood Cell Count 4.25 M/uL (4.33-5.43); Red Cell Distribution Width 13.3 % (12.1-15.2)
[2024-01-20] MEDS ORDERED: IPRATROPIUM BROM 0.5MG/2.5ML ONE (22:15)
[2024-01-20] MEDS ORDERED: ALBUTEROL 2.5 MG/3 ML NEB SOL ONE (22:15)
[2024-01-20] MEDS ORDERED: METHYLPREDNISOLONE 125 MG INJ ONE (22:15)
[2024-01-20] MEDS ORDERED: FUROSEMIDE 40 MG/4 ML VIAL ONE (22:21)
[2024-01-20 22:23] LABS: D-Dimer 0.375 FEUug/mL (0-0.500); PTT, Activated Partial Thromb 29.7 SECONDS (24.3-36.9); Protime INR 1.07
--- NOTE | 2024-01-20 22:25 | RAD REPORT ---
EXAM: Chest Single View HISTORY: CHEST PAIN COMPARISON: 02/03/2018 FINDINGS: LUNGS/PLEURA: The lungs are clear. No pleural effusions or pneumothorax. No pulmonary edema. MEDIASTINUM: The mediastinal silhouette is within normal limits. CARDIAC: The cardiac silhouette is within normal limits. UPPER ABDOMEN: No significant abnormality. BONES: No acute fracture. LINES/TUBES/OTHER: N/A IMPRESSION: No evidence of acute cardiopulmonary disease.
[2024-01-20 22:28] LABS: ALT/SGPT 38 U/L (16-61); AST/SGOT 11 U/L (15-37); Albumin 3.5 g/dL (3.4-5.0); Albumin/Globulin Ratio 0.9 (1.1-1.8); Alkaline Phosphatase 48 U/L (45-117); Anion Gap 7.5 mEq/L (5.0-15.0); BUN Blood Urea Nitrogen 23 mg/dL (7-18); Bicarbonate 37 mEq/L (21-32); Bilirubin Direct < 0.2 mg/dL (0-0.2); Bilirubin Indirect, Calculated 0.2 mg/dL (0.2-0.8); Bilirubin Total 0.4 mg/dL (0.2-1.0); Creatine Phosphokinase 82 U/L (39-308); Glomerular Filtration Rate 83 ml/min (=/>90); Glucose Level 205 mg/dL (74-106); Lipase 38 U/L (13-75); Magnesium 2.1 mg/dL (1.6-2.4); NT PRO-BNP 43 pg/mL (<125); Potassium 3.5 mEq/L (3.5-5.1); Protein, Total 7.5 g/dL (6.4-8.2); Sodium Level 136 mEq/L (136-145); Troponin High Sensitivity 22.9 pg/mL (<58.9)
[2024-01-20 22:54] LABS: C-Reactive Protein 13.6 mg/L (<3.00)
[2024-01-21] MEDS ORDERED: NA CHLORIDE 0.9% 50 ML ONE (00:23)
[2024-01-21] MEDS ORDERED: HYDRALAZINE HCL 25 MG TABLET ONE (00:23)
[2024-01-21] MEDS ORDERED: CEFTRIAXONE 1000 MG/VIAL ONE (00:23)
[2024-01-21 00:38] LABS: SARS-CoV-2 Antigen CONTROL BLUE LINE VIS/BG OK; SARS-CoV-2 Antigen Rapid Res Negative (Negative)
--- NOTE | 2024-01-21 02:07 | RAD REPORT ---
EXAM: CT Chest, Abdomen and Pelvis With Intravenous Contrast CLINICAL HISTORY: Abdominal distention. TECHNIQUE: Axial computed tomography images of the chest, abdomen and pelvis with intravenous contrast. Sagitt al and coronal reformatted images were created and reviewed. This CT exam was performed using one or more of the following dose reduction techniques: automated exposure control, adjustment of the m A and/or kV according to patient size, and/or use of iterative reconstruction technique. COMPARISON: CT Chest 04/20/2018. FINDINGS: CHEST: Trachea: Saber-sheath trachea. Lungs: Moderate to severe centrilobular emphysema with an upper lobe predominance. Left upper lobe calcified granulomata. Scattered bilateral subsegmental atelectasis/pleural parenchymal scar. No mass. Pleural space: Unremarkable. No significant effusion. No pneumothorax. Heart: Coronary artery calcification. No cardiomegaly. No significant pericardial effusion. ABDOMEN: Liver: The liver is enlarged. Gallbladder and bile ducts: Contracted gallbladder. No calcified stones. No ductal dilation. Pancreas: Unremarkable. No ductal dilation. No mass. Spleen: Unremarkable. No splenomegaly. Adrenals: Unremarkable. No mass. Kidneys and ureters: Normal renal cortical enhancement. No calculi. No hydronephrosis. 1.8 cm lef t renal cyst. No follow-up imaging is recommended. JACR 2018 Mar; 264-273, Management of the Incidental Renal Mass on CT, [employer] 2020; 814-848, Bosniak Classification of Cystic Renal Mass es, Version 2019. Stomach and bowel: Duodenal diverticulum. Moderate stool. No bowel obstruction. No appreciable mu cosal thickening. Colonic diverticula without adjacent inflammatory change. PELVIS: Appendix: Normal caliber appendix. No findings to suggest acute appendicitis. Bladder: Unremarkable. No mass. Reproductive: Unremarkable as visualized. CHEST, ABDOMEN and PELVIS: Intraperitoneal space: Unremarkable. No significant fluid collection. No free air. Bones/joints: Multilevel spondylosis. 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 No acute fracture. No dislocation. Soft tissues: Small to moderate bilateral fat-containing inguinal hernias, left greater than right. Bilateral gynecomastia. Vasculature: Mild to moderate atherosclerotic disease. No aortic aneurysm. Lymph nodes: Unremarkable. No enlarged lymph nodes. IMPRESSION: 1. No focal infiltrate. 2. Moderate stool. No bowel obstruction. 3. Other findings as above. Electronically signed by: Ayesha Carbajal MD 01/21/2024 01:48 AM [facility] Due to temporary technical issues with the PACS/GILUPI reporting system, reports are being mulugeta d by the in-house radiologist without review as a courtesy to ensure prompt reporting the interpreting radiologist is fully responsible for the content of the report. Transcribed Date/Time: 01/21/2024 2:06 AM
--- NOTE | 2024-01-21 02:20 | ER ---
Nurse's Notes [facility] Name: Feroz Raman Age: 68 yrs Sex: Male : 1955 Arrival Date: 01/20/2024 Time: 21:32 Bed 7 Private MD: Diagnosis: COPD/ Chronic obstructive pulmonary disease with (acute) exacerbation;Exertional dyspnea Presentation: 01/19 21:42 Chief complaint: Patient states: he has been more sob than normal for about a month but me1 tonight his oxygen level just wouldn't come back up so he came on in. Wears o2 at home on 4 lpm via nc. o2 sat was 86% on room air on arrival. Patient has a heart cath scheduled for January 26 because he has some blockage. Coronavirus screen: Vaccine status: Patient reports receiving the 2nd dose of the covid vaccine. Ebola Screen: No symptoms or risks identified at this time. Initial Sepsis Screen: Does the patient meet any 2 criteria? No. Patient's initial sepsis screen is negative. Risk Assessment: Do you want to hurt yourself or someone else? Patient reports no desire to harm self or others. Onset of symptoms is unknown. 21:42 Method Of Arrival: Wheelchair me1 21:42 Acuity: MILY 3 me1 Historical: - Allergies: 21:44 PENICILLINS; me1 21:44 Lisinopril; me1 21:44 BuSpar; me1 21:44 Spironolactone; me1 21:44 Zoloft; me1 - PMHx: 21:44 COPD; Hypertension; me1 - Immunization history:: Adult Immunizations up to date. - Infectious Disease History:: Denies. - Social history:: Smoking status: Patient/guardian denies using tobacco. - Family history:: not pertinent. Screenin:48 [facility] ED Fall Risk Assessment (Adult) History of falling in the last 3 months, cp4 including since admission No falls in past 3 months (0 pts) Confusion or Disorientation No (0 pts) Intoxicated or Sedated No (0 pts) Impaired Gait No (0 pts) Mobility Assist Device Used No (0 pt) Altered Elimination No (0 pt) Score/Fall Risk Level 0 - 2 = Low Risk Oriented to surroundings, Maintained a safe environment, Assessed \T\ reinforced patient's understanding of fall precautions, Hourly rounding (assess needs \T\ fall precautionary measures) done. Abuse screen: Denies threats or abuse. Nutritional screening: No deficits noted. Tuberculosis screening: No symptoms or risk factors identified. Assessment: 21:48 General: Appears distressed, uncomfortable, Behavior is calm, cooperative, appropriate cp4 for age. Pain: Denies pain. Neuro: Level of Consciousness is awake, alert, obeys commands, Oriented to person, place, time, situation. Cardiovascular: Patient's skin is warm and dry. Rhythm is sinus rhythm. Respiratory: Airway is patent Respiratory effort is even, labored, gasping, Breath sounds with crackles bilaterally. GI: No signs and/or symptoms were reported involving the gastrointestinal system. : No signs and/or symptoms were reported regarding the genitourinary system. EENT: No signs and/or symptoms were reported regarding the EENT system. Derm: No signs and/or symptoms reported regarding the dermatologic system. Musculoskeletal: No signs and/or symptoms reported regarding the musculoskeletal system. 23:00 Reassessment: Patient appears in no apparent distress at this time. Patient and/or cp4 family updated on plan of care and expected duration. Pain level reassessed. Patient is alert, oriented x 3, equal unlabored respirations, skin warm/dry/pink. 01/20 00:00 Reassessment: Patient appears in no apparent distress at this time. Patient and/or cp4 family updated on plan of care and expected duration. Pain level reassessed. Patient is alert, oriented x 3, equal unlabored respirations, skin warm/dry/pink. 01:00 Reassessment: Patient appears in no apparent distress at this time. Patient and/or cp4 family updated on plan of care and expected duration. Pain level reassessed. Patient is alert, oriented x 3, equal unlabored respirations, skin warm/dry/pink. 02:00 Reassessment: Patient appears in no apparent distress at this time. Patient and/or cp4 family updated on plan of care and expected duration. Pain level reassessed. Patient is alert, oriented x 3, equal unlabored respirations, skin warm/dry/pink. 03:00 Reassessment: Patient appears in no apparent distress at this time. Patient and/or cp4 family updated on plan of care and expected duration. Pain level reassessed. Patient is alert, oriented x 3, equal unlabored respirations, skin warm/dry/pink. 04:00 Reassessment: Patient appears in no apparent distress at this time. Patient and/or cp4 family updated on plan of care and expected duration. Pain level reassessed. Patient is alert, oriented x 3, equal unlabored respirations, skin warm/dry/pink. Vital Signs: 01/19 21:42 BP 171 / 97; Pulse 89; Resp 26; Temp 98.4; Pulse Ox 86% on R/A; Weight 114.76 kg; me1 Height 5 ft. 11 in. ; Pain 0/10; 21:42 Pulse Ox 91% on 4 lpm NC; me1 23:00 BP 166 / 69; Pulse 87; Resp 20; Pulse Ox 93% on 4 lpm NC; cp4 01/20 00:49 BP 156 / 70; Pulse 87; Resp 18; Pulse Ox 92% on 4 lpm NC; cp4 01:28 BP 166 / 80; Pulse 91; Resp 18; Pulse Ox 92% on 4 lpm NC; cp4 03:25 BP 159 / 86; Pulse 78; Resp 18; Pulse Ox 96% on 4 lpm NC; cp4 04:30 BP 160 / 93; Pulse 87; Resp 18; Pulse Ox 93% on 4 lpm NC; cp4 01/19 21:42 Body Mass Index 35.29 (114.76 kg, 180.34 cm) ks1 01/19 21:42 Pain Scale: Adult ks1 [place] Coma Score: 02:08 Eye Response: spontaneous(4). Motor Response: obeys commands(6). Verbal Response: sp4 oriented(5). Total: 15. ED Course: 01/19 21:40 Patient arrived in ED. mr 21:44 Triage completed. me1 21:47 Sy Klein MD is Attending Physician. sp4 21:48 Eva Negron is Primary Nurse. cp4 21:48 Placed in gown. Bed in low position. Call light in reach. Side rails up X2. cp4 21:48 No provider procedures requiring assistance completed. Inserted saline lock: 20 gauge cp4 in right antecubital area, using aseptic technique. Blood collected. Flushed with 10 mL NS. 21:49 Arm band placed on Patient placed in an exam room. me1 22:00 Initial lab(s) drawn, by me, sent to lab. First set of blood cultures drawn by me. cp4 22:21 XRAY CXR (1 view) In Process Unspecified. EDMS 01/20 00:26 Influenza Screen (a \T\ B) Sent. vk 00:26 SARS RAPID Sent. vk 00:47 CT Chest, Abdomen, Pelvis - W/Contrast In Process Unspecified. EDMS 02:19 Jayne Holloway MD is Hospitalizing Provider. sp4 04:36 Provided Education on: admission. cp4 04:36 Patient admitted, IV remains in place. cp4 Administered Medications: 01/19 22:20 Drug: Albuterol Inhalation 2.5 mg Inhalation every 20 minutes x3 Route: Inhalation; cp4 22:20 Drug: Ipratropium Inhalation Aerosol 0.5 mg Inhalation once; Every 20 min for a total cp4 of 3 treatments x3 Route: Inhalation; 22:20 Drug: MethylPrednisoLONE IVP 125 mg IVP once Route: IVP; Site: right antecubital; cp4 23:15 Follow up: Response: No adverse reaction cp4 22:24 Drug: Furosemide IVP 40 mg IVP once; give over 2 minutes Route: IVP; Site: right cp4 antecubital; 22:50 Follow up: Response: No adverse reaction cp4 22:51 Drug: Albuterol Inhalation 2.5 mg Inhalation every 20 minutes x3 Route: Inhalation; cp4 22:51 Drug: Ipratropium Inhalation Aerosol 0.5 mg Inhalation once; Every 20 min for a total cp4 of 3 treatments x3 Route: Inhalation; 23:15 Drug: Albuterol Inhalation 2.5 mg Inhalation every 20 minutes x3 Route: Inhalation; cp4 23:15 Follow up: Response: No adverse reaction cp4 23:15 Drug: Ipratropium Inhalation Aerosol 0.5 mg Inhalation once; Every 20 min for a total cp4 of 3 treatments x3 Route: Inhalation; 23:15 Follow up: Response: No adverse reaction cp4 01/20 00:35 Drug: HydrALAZINE PO 50 mg PO once Route: PO; lg3 02:34 Follow up: Response: No adverse reaction cp4 00:35 Drug: Rocephin - Rocephin (cefTRIAXone) IVPB 1 grams IVPB once over 30 mins; (mix in 50 lg3 mL NS) Route: IVPB; Infused Over: 30 mins; Site: right antecubital; 01:00 Follow up: IV Status: Completed infusion cp4 Medication: 01/19 21:48 VIS not applicable for this client. cp4 Outcome: 01/20 02:20 Decision to Hospitalize by Provider. sp4 04:36 Admitted to Med/surg accompanied by tech, via wheelchair, with oxygen, with chart, cp4 04:36 Condition: stable 04:36 Instructed on the need for admit, 04:36 Patient left the ED. cp4 Signatures: Dispatcher [employer] EDMS Debbie Vargas, Reg Reg mr RuggieroRosita, RN RN lg3 Sy Klein MD MD sp4 Trista Lopez RN RN ks1 Eva Negron cp4 Cindy Thomas Corrections: (The following items were deleted from the chart) 01/19 21:49 21:42 Chief complaint: Patient states: he has been more sob than normal for about a me1 month but tonight his oxygen level just wouldn't come back up so he came on in. Wears o2 at home on 4 lpm via nc. o2 sat was 86% on room air on arrival me1
--- NOTE | 2024-01-21 02:20 | EDPHYS ---
Physician Documentation [facility] Name: Feroz Raman Age: 68 yrs Sex: Male : 1955 Arrival Date: 01/20/2024 Time: 21:32 Bed 7 Private MD: ED Physician Sy Klein HPI: 01/19 21:47 This 68 yrs old Unknown Male presents to ER via Wheelchair with complaints of Breathing sp4 Difficulty. 01/20 02:08 68-year-old male presents to the emergency room with complaint of worsening shortness sp4 of breath.. Patient reports in the last 2 days shortness of breath has become more prominent and he is unable to perform minimal physical exertion. Patient states he was unable to go to the bathroom without getting out of breath. Patient is on home oxygen history of COPD. Currently no active tobacco use.. 02:16 Medication list includes albuterol HFA, amlodipine 10 mg daily, aspirin 81 mg daily, sp4 atorvastatin 10 mg daily, budesonide glycopyrrolate formoterol inhaler, Bumex half a milligram daily, ergocalciferol, folic acid, guaifenesin 600 mg every 12 hours as needed, ipratropium albuterol nebulized, metformin twice a day, prednisone 10 mg twice a day, tizanidine as needed. Additional history includes anxiety disorder, depression, COPD, abdominal bloating, home oxygen dependent. Historical: - Allergies: 01/19 21:44 PENICILLINS; me1 21:44 Lisinopril; me1 21:44 BuSpar; me1 21:44 Spironolactone; me1 21:44 Zoloft; me1 - PMHx: 21:44 COPD; Hypertension; me1 - Immunization history:: Adult Immunizations up to date. - Infectious Disease History:: Denies. - Social history:: Smoking status: Patient/guardian denies using tobacco. - Family history:: not pertinent. ROS: 01/20 02:08 Constitutional: Negative for fever, chills, and weight loss, positive for shortness sp4 of breath positive for abdominal discomfort. All other systems are negative, Exam: 02:08 Constitutional: This is a well developed, well nourished patient who is awake, alert sp4 , overweight male, dyspneic and tachypneic Head/Face: Normocephalic, atraumatic. Eyes: Pupils equal round and reactive to light, extra-ocular motions intact. Lids and lashes normal. Conjunctiva and sclera are not injected. Cornea within normal limits. Periorbital areas with no swelling, redness, or edema. ENT: Nares patent. No nasal discharge, no septal abnormalities noted. Tympanic membranes are normal and external auditory canals are clear. Oropharynx with no redness, swelling, or masses, exudates, or evidence of obstruction, uvula midline. Mucous membranes moist. Neck: Trachea midline, no thyromegaly or masses palpated, and no cervical lymphadenopathy. Supple, full range of motion without nuchal rigidity, or vertebral point tenderness. Chest/axilla: Normal chest wall appearance and motion. Nontender with no deformity. No lesions are appreciated. Cardiovascular: Regular rate and rhythm with a normal S1 and S2. No gallops, murmurs, or rubs. Normal PMI, no JVD. No pulse deficits. Respiratory: Lungs have equal breath sounds bilaterally, clear to auscultation and percussion. No rales, rhonchi or wheezes noted. Positive for diffuse expiratory wheezing in all lung cowan Abdomen/GI: Soft, with normal bowel sounds. No distension or tympany. No guarding or rebound. No evidence of tenderness throughout. Back: No spinal tenderness. No costovertebral tenderness. Skin: Warm, dry with normal turgor. Normal color with no rashes, no lesions, and no evidence of cellulitis. MS/ Extremity: Pulses equal, no cyanosis. Neurovascular intact. Full, normal range of motion. Neuro: Awake and alert, GCS 15, oriented to person, place, time, and situation. Cranial nerves II-XII grossly intact. Motor strength 5/5 in all extremities. Sensory grossly intact. Psych: Awake, alert, with orientation to person, place and time. Behavior, mood, and affect are within normal limits 02:08 ECG was reviewed by the Attending Physician. EKG at 2209 EKG at 2209 sinus rhythm with premature atrial complexes, right bundle branch block. Left anterior fascicular block. Otherwise normal. Vital Signs: 01/19 21:42 BP 171 / 97; Pulse 89; Resp 26; Temp 98.4; Pulse Ox 86% on R/A; Weight 114.76 kg; me1 Height 5 ft. 11 in. ; Pain 0/10; 21:42 Pulse Ox 91% on 4 lpm NC; me1 23:00 BP 166 / 69; Pulse 87; Resp 20; Pulse Ox 93% on 4 lpm NC; cp4 01/20 00:49 BP 156 / 70; Pulse 87; Resp 18; Pulse Ox 92% on 4 lpm NC; cp4 01:28 BP 166 / 80; Pulse 91; Resp 18; Pulse Ox 92% on 4 lpm NC; cp4 03:25 BP 159 / 86; Pulse 78; Resp 18; Pulse Ox 96% on 4 lpm NC; cp4 04:30 BP 160 / 93; Pulse 87; Resp 18; Pulse Ox 93% on 4 lpm NC; cp4 01/19 21:42 Body Mass Index 35.29 (114.76 kg, 180.34 cm) me1 01/19 21:42 Pain Scale: Adult me1 [place]ie Coma Score: 02:08 Eye Response: spontaneous(4). Motor Response: obeys commands(6). Verbal Response: sp4 oriented(5). Total: 15. MDM: 01/19 22:09 Differential diagnosis: asthma, Bronchitis CHF exacerbation, Chronic Obstructive sp4 Pulmonary Disease pneumonia. Antibiotic administration: Data reviewed: vital signs, nurses notes, lab test result(s), EKG, radiologic studies, CT scan, plain films. Consideration of Admission/Observation Patient was admitted/placed on observation. Escalation of care including admission/observation considered. Management of patient was discussed with the following: Hospitalist: Jewel MAHAJAN . Interface Developer: Sophie MAHAJAN . ED course: Patient stable for admission for COPD exacerbation.. 22:11 Medical Screening Exam initiated sp4 01/20 01:59 ED course: EXAM: CT Chest, Abdomen and Pelvis With Intravenous Contrast CLINICAL sp4 HISTORY: Abdominal distention. TECHNIQUE: Axial computed tomography images of the chest, abdomen and pelvis with intravenous contrast. Sagittal and coronal reformatted images were created and reviewed. This CT exam was performed using one or more of the following dose reduction techniques: automated exposure control, adjustment of the mA and/or kV according to patient size, and/or use of iterative reconstruction technique. COMPARISON: CT Chest 04/20/2018. FINDINGS: CHEST: Trachea: Saber-sheath trachea. Lungs: Moderate to severe centrilobular emphysema with an upper lobe predominance. Left upper lobe calcified granulomata. Scattered bilateral subsegmental atelectasis/pleural parenchymal scar. No mass. Pleural space: Unremarkable. No significant effusion. No pneumothorax. Heart: Coronary artery calcification. No cardiomegaly. No significant pericardial effusion. ABDOMEN: Liver: The liver is enlarged. Gallbladder and bile ducts: Contracted gallbladder. No calcified stones. No ductal dilation. Pancreas: Unremarkable. No ductal dilation. No mass. Spleen: Unremarkable. No splenomegaly. Adrenals: Unremarkable. No mass. Kidneys and ureters: Normal renal cortical enhancement. No calculi. No hydronephrosis. 1.8 cm left renal cyst. No follow-up imaging is recommended. JACR 2018 Mar; 264-273, Management of the Incidental Renal Mass on CT, [employer] 2020; [id number], Bosniak Classification of Cystic Renal Masses, Version 2019. Stomach and bowel: Duodenal diverticulum. Moderate stool. No bowel obstruction. No appreciable mucosal thickening. Colonic diverticula without adjacent inflammatory change. PELVIS: Appendix: Normal caliber appendix. No findings to suggest acute appendicitis. Bladder: Unremarkable. No mass. Reproductive: Unremarkable as visualized. CHEST, ABDOMEN and PELVIS: Intraperitoneal space: Unremarkable. No significant fluid collection. No free air. Bones/joints: Multilevel spondylosis. 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 No acute fracture. No dislocation. Soft tissues: Small to moderate bilateral fat-containing inguinal hernias, left greater than right. Bilateral gynecomastia. Vasculature: Mild to moderate atherosclerotic disease. No aortic aneurysm. Lymph nodes: Unremarkable. No enlarged lymph nodes. IMPRESSION: 1. No focal infiltrate. 2. Moderate stool. No bowel obstruction. 3. Other findings as above. Electronically signed by: Ayesha Carbajal MD 01/21/2024 01:48 AM [employer] RP. 01/19 21:49 Order name: BMP; Complete Time: 23:49 4 01/19 21:49 Order name: Blood Culture Adult (2) 4 01/19 21:49 Order name: CBC with Diff; Complete Time: 23:49 4 01/19 21:49 Order name: CPK; Complete Time: 23:49 [facility] 01/19 21:49 Order name: D-Dimer; Complete Time: 23:49 4 01/19 21:49 Order name: Hepatic Function; Complete Time: 23:49 sp4 01/19 21:49 Order name: Lipase; Complete Time: 23:49 sp4 01/19 21:49 Order name: Magnesium; Complete Time: 23:49 sp4 01/19 21:49 Order name: NT PRO-BNP; Complete Time: 23:49 sp4 01/19 21:49 Order name: PT-INR; Complete Time: 23:49 4 01/19 21:49 Order name: Ptt, Activated; Complete Time: 23:49 sp4 01/19 21:49 Order name: Troponin HS; Complete Time: 23:49 sp4 01/19 22:12 Order name: T4 Free; Complete Time: 23:49 4 01/19 22:12 Order name: CRP; Complete Time: 23:49 [facility] 01/19 23:49 Order name: SARS RAPID; Complete Time: 01:19 sp4 01/19 23:49 Order name: Influenza Screen (a \T\ B); Complete Time: 01:19 [facility] 01/20 03:00 Order name: CBC with Automated Diff [facility] 01/20 03:00 Order name: Urinalysis w/ reflexes [facility] 01/20 03:00 Order name: Magnesium [facility] 01/20 03:00 Order name: Phosphorus [facility] 01/20 03:00 Order name: Thyroid Stimulating Hormone [facility] 01/19 21:49 Order name: XRAY CXR (1 view); Complete Time: 23:49 [facility] 01/20 00:11 Order name: CT Chest, Abdomen, Pelvis - W/Contrast [facility] 01/20 03:00 Order name: CONS Physician Consult [facility] 01/20 03:03 Order name: Respiratory Therapy Consult [facility] 01/19 21:49 Order name: Cardiac monitoring; Complete Time: 22:03 [facility] 01/19 21:49 Order name: EKG - Nurse/Tech; Complete Time: 22:11 [facility] 01/19 21:49 Order name: IV Saline Lock; Complete Time: 22:03 [facility] 01/19 21:49 Order name: Labs collected and sent; Complete Time: 22:03 4 01/19 21:49 Order name: O2 Per Protocol; Complete Time: 22:04 [facility] 01/19 21:49 Order name: O2 Sat Monitoring; Complete Time: 22:04 sp4 EC/29 22:09 Rate is 86 beats/min. Rhythm is irregular, Sinus Rhythm with PACs. QRS [place] is Normal. sp4 AR interval is normal. QRS interval is prolonged. QT interval is normal. No Q waves. T waves are Normal. No ST changes noted. Clinical impression: No evidence of ischemia. Interpreted by me. Reviewed by me. Administered Medications: 22:20 Drug: Albuterol Inhalation 2.5 mg Inhalation every 20 minutes x3 Route: Inhalation; cp4 22:20 Drug: Ipratropium Inhalation Aerosol 0.5 mg Inhalation once; Every 20 min for a total cp4 of 3 treatments x3 Route: Inhalation; 22:20 Drug: MethylPrednisoLONE IVP 125 mg IVP once Route: IVP; Site: right antecubital; cp4 23:15 Follow up: Response: No adverse reaction cp4 22:24 Drug: Furosemide IVP 40 mg IVP once; give over 2 minutes Route: IVP; Site: right cp4 antecubital; 22:50 Follow up: Response: No adverse reaction cp4 22:51 Drug: Albuterol Inhalation 2.5 mg Inhalation every 20 minutes x3 Route: Inhalation; cp4 22:51 Drug: Ipratropium Inhalation Aerosol 0.5 mg Inhalation once; Every 20 min for a total cp4 of 3 treatments x3 Route: Inhalation; 23:15 Drug: Albuterol Inhalation 2.5 mg Inhalation every 20 minutes x3 Route: Inhalation; cp4 23:15 Follow up: Response: No adverse reaction cp4 23:15 Drug: Ipratropium Inhalation Aerosol 0.5 mg Inhalation once; Every 20 min for a total cp4 of 3 treatments x3 Route: Inhalation; 23:15 Follow up: Response: No adverse reaction cp4 01/20 00:35 Drug: HydrALAZINE PO 50 mg PO once Route: PO; lg3 02:34 Follow up: Response: No adverse reaction cp4 00:35 Drug: Rocephin - Rocephin (cefTRIAXone) IVPB 1 grams IVPB once over 30 mins; (mix in 50 lg3 mL NS) Route: IVPB; Infused Over: 30 mins; Site: right antecubital; 01:00 Follow up: IV Status: Completed infusion cp4 Disposition Summary: 01/21/24 02:20 Hospitalization Ordered Notes: Hospitalization Status: Inpatient Admission sp4 Provider: Jayne Holloway sp4 Location: Telemetry/MedSurg (Inpatient) sp4 Condition: Stable sp4 Problem: new sp4 Symptoms: have improved sp4 Bed/Room Type: Standard sp4 Room Assignment: 217(01/21/24 03:28) kmf Diagnosis - COPD/ Chronic obstructive pulmonary disease with (acute) exacerbation sp4 - Exertional dyspnea sp4 Forms: - Medication Reconciliation Form sp4 - SBAR form sp4 - Leadership Thank You Letter sp4 Signatures: Dispatcher [employer] EDRosita Alegre RN RN lg3 Sy Klein MD MD sp4 Trista Lopez RN RN me1 Eva Negron 4 Abby Cedeño kmf Corrections: (The following items were deleted from the chart) 00:12 00:12 Chest Abdomen Pelvis W Con+CT.RAD.BRZ ordered. EDID EDMS 03:28 02:20 sp4 kmf
[2024-01-21] MEDS ORDERED: ALBUTEROL 2.5 MG/3 ML NEB SOL NEB PRN ×2 (02:55→08:15)
--- NOTE | 2024-01-21 03:08 | P.HP ---
Certification for Inpatient With expected LOS: <2 Midnights Practitioner: I am a practitioner with admitting privileges, knowledge of patient current condition, hospital course, and medical plan of care. Services: Services provided to patient in accordance with Admission requirements found in Title 42 Section 412.3 of the Code of Federal Regulations Patient History Date of Service: 01/21/24 Reason for admission: copd exacerbation History of Present Illness: 68-year-old man with a past medical history significant for COPD on home oxygen (3-4 L daily), DM [id number], HDL, and HTN presented to the emergency room complaining of shortness of breath and productive cough x 1 day. The patient has a history of COPD exacerbations, and states his last exacerbation was in 2019. The patient is on home oxygen, and states his cough has gotten worse and is now productive. He is a former smoker who quit 15 years ago. The patient states he has attempted to increase his oxygen at home, but reports minimal improvement in his symptoms. He states nothing worsens his symptoms. He denies fever, and urinary symptoms. Allergies Penicillins Allergy (Severe, Verified 06/25/12 21:31) Anaphylaxis Home Medications: Diclofenac Na [Voltaren D.r*] 75 mg PO BID 11/16/17 Glycopyrrolate/Formoterol Fum [Bevespi Aerosphere Inhaler] 1 puff PO DAILY 11/16/17 Lisinopril/Hydrochlorothiazide [Lisinopril-Hctz 20-12.5 mg Tab] 1 tab PO DAILY 11/16/17 Albuterol Neb [Proventil 0.083% Neb Soln] 2.5 mg NEB [id number] #60 amp 11/18/17 Ipratropium Neb [Atrovent*] 0.5 mg NEB [id number] #60 amp 11/18/17 Folic Acid 1 mg PO DAILY #30 tablet 02/05/18 Mometasone/Formoterol [Dulera 100 Mcg/5 Mcg Inhaler] 2 puff IH BID #1 inhaler 02/05/18 Thiamine HCl [Vitamin B-1*] 100 mg PO DAILY #30 tablet 02/05/18 predniSONE [Prednisone*] 40 mg PO DAILY #10 tab 02/05/18 - Past Medical/Surgical History Diabetic: Yes -: HTN -: COPD -: HDL -: DM non-insulin dependent -: back surgery-fusion -: ankle right surgery -: finger surgery on the left - Family History father's side -: Cancer, Other (see notes) Notes: lung cancer - Social History Smoking Status: Former smoker (Quit 15 years ago) Alcohol use: No CD- Drugs: No Caffeine use: Yes Review of Systems Respiratory: Cough (Productive), Shortness of Breath, SOB with Excertion Gastrointestinal: Distention Physical Examination - Vital Signs Temperature: 98.4 F Blood Pressure: 151/78 Pulse: 85 Respirations: 18 Pulse Ox (%): 96 (on nasal cannula) - Physical Exam General: Alert, Oriented x3 HEENT: Atraumatic, Normocephalic Neck: JVD not distended, Other Respiratory: Crackles/rales (Bilateral lungs) Cardiovascular: Regular rate/rhythm, No gallops, No rubs, No murmurs, Edema Gastrointestinal: Normal bowel sounds, No tenderness, Distended Musculoskeletal: No erythema, No tenderness, No warmth, Swelling (b/l lower extremities) Integumentary: Tenderness/swelling (Right foot with erythematous, edematous blister, closed) Neurological: Normal strength at 5/5 x4 extr, Sensation intact - Studies Laboratory Data (last 24 hrs) 01/20/24 01/20/24 01/20/24 22:00 22:00 22:00 WBC 15.20 H Hgb 13.9 Hct 41.9 Plt Count 222 PT 12.0 INR 1.07 APTT 29.7 Sodium 136 Potassium 3.5 BUN 23 H Creatinine 0.99 Glucose 205 H Magnesium 2.1 Total Bilirubin 0.4 AST 11 L ALT 38 Alkaline Phosphatase 48 Lipase 38 Microbiology Data (last 24 hrs): 01/21/24 00:10 Nasopharnyx Influenza Type A Antigen Screen - Final 01/21/24 00:10 Nasopharnyx Influenza Type B Antigen Screen - Final Assessment and Plan - Problems (Diagnosis) (1) Dyslipidemia (high LDL; low HDL) Current Visit: Yes Status: Acute (2) Diabetes Current Visit: Yes Status: Acute (3) Obesity Current Visit: Yes Status: Acute (4) COPD with acute exacerbation Onset Date: 11/16/17 Current Visit: No Status: Acute (5) HTN (hypertension) Onset Date: 11/16/17 Current Visit: No Status: Acute - Plan COPD exacerbation: Admit to floor Pulmonology consulted Respiratory therapy consulted Continue with oxygen via nasal cannula DuoNebs as needed Solu-Medrol 60q6 ordered IV Lasix ordered Blood cultures collected in ED Given ceftriaxone, hydralazine, Lasix, and Solu-Medrol in ED IV Azithromycin ordered CXR revealed no acute abnormality CT C/A/P revealed moderate to severe emphysema, moderate stool, no obstruction D-dimer within normal limits, BNP wnl, lipase wnl Negative Trop Diabetes: On insulin sliding scale Holding metformin Hypertension: Resume amlodipine daily HDL: Resume atorvastatin at bedtime daily Obesity: The patient has been counseled on the importance of weight loss. He voiced understanding, and all his questions were answered to his satisfaction - Advance Directives Does patient have a Living Will: No Does patient have a Durable POA for Healthcare: No
[2024-01-21] MEDS ORDERED: D10W 125 ML IV PRN (03:17)
[2024-01-21] MEDS ORDERED: GLUCAGON 1 MG/VIAL IM PRN (03:17)
[2024-01-21] MEDS: METHYLPREDNISOLONE 125 MG INJ IV SCH (05:35)
[2024-01-21 06:04] LABS: Absolute Lymphocytes (CBC) 0.3 K/uL (0.7-4.9); Absolute Monocytes 0.1 K/uL (0.1-1.3); Absolute Neutrophil 14.9 K/uL (1.8-8.0); Basophils % 0.1 % (0-1.3); Hematocrit 41.9 % (39.6-49.0); Lymphocytes % 2.1 % (15.3-44.8); MCH 32.8 pg (27.0-35.0); MCHC 33.4 g/dL (32.0-36.0); MCV 98.2 fL (80-100); MPV 8.8 fL (7.6-11.3); Monocytes % 0.8 % (3.3-12.3); Platelets 222 thou/uL (152-406); RBC Red Blood Cell Count 4.26 M/uL (4.33-5.43); Red Cell Distribution Width 13.4 % (12.1-15.2)
[2024-01-21 06:26] LABS: Magnesium 1.9 mg/dL (1.6-2.4); Thyroid Stimulating Hormone 1.04 uIU/mL (0.358-3.740)
[2024-01-21 07:00] VITALS: BMI 35.2
[2024-01-21] MEDS: INSULIN REGULAR (HUMAN) 100 UNIT/ML SQ SCH (07:30)
[2024-01-21] MEDS: IPRATROPIUM BROM 0.5MG/2.5ML NEB SCH (07:36)
[2024-01-21 08:34] LABS: Anion Gap 14.9 mEq/L (5.0-15.0); Potassium 3.9 mEq/L (3.5-5.1)
[2024-01-21] MEDS ORDERED: PNEUMOCOCCAL VACCINE 0.5 ML IMVAC ONE (09:00)
[2024-01-21] MEDS: FUROSEMIDE 40 MG/4 ML VIAL IV SCH (09:46)
[2024-01-21] MEDS: AZITHROMYCIN IV 500 MG in NA CHLORIDE 0.9% 250 ML IVPB SCH (09:46)
[2024-01-21] MEDS: HEPARIN 5000 UNIT/ML 1 ML VIAL SQ SCH (09:46)
[2024-01-21] MEDS: ATORVASTATIN 10 MG TAB PO SCH (09:47)
[2024-01-21] MEDS: AMLODIPINE 10 MG TAB PO SCH (09:47)
[2024-01-21 10:13] LABS: Blood Morphology Comment NOT SEEN (NOT SEEN); Platelet Estimate ADEQ; White Blood Cell Scan OK (OK)
--- NOTE | 2024-01-21 12:15 | P.PN ---
Date of Service: 01/21/24 Patient seen and examined. He is complaining of shortness of breath and anxiety. Patient noted to be audibly wheezing. Plan: Scheduled bronchodilators. Continue IV antibiotic Start Xanax as needed for anxiety Patient is currently on baseline oxygen. He is currently normotensive.
[2024-01-21] MEDS: ALBUTEROL 2.5 MG/3 ML NEB SOL NEB SCH (13:16)
[2024-01-21] MEDS: ALPRAZOLAM 0.5 MG TABLET PO PRN (20:42)
[2024-01-21] MEDS: ACETAMINOPHEN 325 MG TABLET PO PRN (21:59)
[2024-01-22 06:07] LABS: Absolute Lymphocytes (CBC) 0.4 K/uL (0.7-4.9); Absolute Monocytes 0.4 K/uL (0.1-1.3); Absolute Neutrophil 19.6 K/uL (1.8-8.0); Basophils % 0.2 % (0-1.3); Hematocrit 37.8 % (39.6-49.0); Hemoglobin 12.5 g/dL (13.6-17.9); MCH 32.9 pg (27.0-35.0); MCHC 33.2 g/dL (32.0-36.0); MCV 99.1 fL (80-100); MPV 9.2 fL (7.6-11.3); Monocytes % 1.7 % (3.3-12.3); Neutrophils % 96.1 % (41.7-73.7); Platelets 196 thou/uL (152-406); RBC Red Blood Cell Count 3.81 M/uL (4.33-5.43); Red Cell Distribution Width 12.9 % (12.1-15.2)
[2024-01-22 06:26] LABS: Anion Gap 5.8 mEq/L (5.0-15.0); Potassium 3.8 mEq/L (3.5-5.1)
[2024-01-22 07:25] LABS: Differential Total Cells Count 100; Segmented Neutrophils 94 % (40-80)
[2024-01-22 07:26] LABS: Band Neutrophils 1 % (0-1); Basophilic Stippling 1+; Blood Morphology Comment NOTED (NOT SEEN); Lymphocytes 2 % (15-42); Monocytes 3 % (0-10); Platelet Estimate ADEQ
[2024-01-22] MEDS: CEFTRIAXONE 1,000 MG in NA CHLORIDE 0.9% 50 ML IVPB SCH (08:11)
[2024-01-22 10:05] LABS: Specific Gravity 1.014 (1.005-1.030); Sqamous Epithelial <5 /HPF (None Seen); Urine Bacteria None Seen /HPF (<20); Urine Bilirubin NEGATIVE (Negative); Urine Blood Trace (Negative); Urine Clarity Clear (Clear); Urine Color Light-Yellow (Yellow); Urine Culture Reflex Order NOT NEEDED; Urine Glucose NEGATIVE (Negative); Urine Ketones NEGATIVE (Negative); Urine Microscopic Reflex YN ORDER UMIC; Urine Nitrite NEGATIVE (Negative); Urine Protein NEGATIVE (Negative); Urine RBC <5 /HPF (None Seen); Urine Urobilinogen Normal (Normal); Urine WBC <5 /HPF (<5)
--- NOTE | 2024-01-22 12:08 | P.PN ---
Subjective Date of Service: 01/22/24 Chief Complaint: copd exacerbation Patient reports no changes in his respiratory symptoms compared to yesterday. He sees the Xanax helps a little bit with his anxiety. He is stable on his home oxygen 2 L by nasal cannula. He reports cough productive of whitish sputum. Physical Examination - Vital Signs Temperature: 98.3 F Blood Pressure: 140/73 Pulse: 65 Respirations: 24 Pulse Ox (%): 90 Assessment And Plan - Plan Physical examination General: Alert and oriented x3, NAD, morbidly HEENT: Conjunctiva not pale, anicteric sclera Neck: Supple, no elevated JVD Heart: Heart sounds 1 and 2 normal, regular rhythm, normal rate, no pedal edema Lungs: Bilateral upper airway transmitted sounds, diminished breath sounds bilaterally, no rhonchi or crackles. Abdomen: Obese abdomen, soft, nondistended, nontender, normal bowel sounds. Extremities: No tenderness, no deformity Skin: Normal skin turgor, no rash, no nodules or ulcers. Neuro: No focal motor deficit. Normal speech. Psychiatry: Normal mood, no agitation. Diagnosis: COPD exacerbation Chronic respiratory failure with hypoxia Morbid obesity Essential hypertension Hyperlipidemia Diabetes mellitus type 2 Plan: COPD exacerbation Scheduled DuoNeb Continue IV steroid IV Lasix as needed. Patient is stable on baseline home oxygen Blood cultures; no growth Continue IV Rocephin and Zithromax Diabetes mellitus type II On insulin sliding scale. Watch for steroid-induced hyperglycemia Holding metformin Hypertension Continue amlodipine. Hyperlipidemia Continue home dose lipitor Anxiety disorder Patient states he has not tolerated Zoloft in the past and had tremor with. He stated BuSpar makes him worse. Trial of Xanax as needed. DVT prophylaxis: Heparin SQ Advanced directive: Full code.
[2024-01-22] MEDS ORDERED: ALPRAZOLAM 0.5 MG TABLET PO PRN (12:10)
--- NOTE | 2024-01-22 14:14 | EKG ---
Test Date: 2024-01-20 Test Time: 22:09:26 Towel Cabinet Repairer: CAITLYN MEASUREMENT RESULTS: Intervals: Rate: 86 VT: 152 QRSD: 100 QT: 376 QTc: 449 [place]: P: 69 VT: 152 QRS: -54 T: 76 INTERPRETIVE STATEMENTS: Sinus rhythm with premature atrial complexes in a pattern of bigeminy Incomplete right bundle branch block Left anterior fascicular block Septal infarct, age undetermined Abnormal ECG Compared to ECG 02/03/2018 10:05:05 Atrial premature complex(es) now present Incomplete right bundle-branch block now present Left anterior fascicular block now present Left-axis deviation no longer present Myocardial infarct finding still present Electronically Signed On 01-22-24 14:12:09 QUALITY FACILITATOR by Ghulam Salazar
[2024-01-22] MEDS: FLUTICASONE 50MCG NASAL SPRAY NAS SCH (21:00)
[2024-01-23 06:26] LABS: Absolute Lymphocytes (CBC) 0.3 K/uL (0.7-4.9); Absolute Monocytes 0.5 K/uL (0.1-1.3); Absolute Neutrophil 16.2 K/uL (1.8-8.0); Basophils % 0.1 % (0-1.3); Hematocrit 40.6 % (39.6-49.0); Hemoglobin 13.6 g/dL (13.6-17.9); MCH 32.8 pg (27.0-35.0); MCHC 33.5 g/dL (32.0-36.0); MCV 97.8 fL (80-100); MPV 8.7 fL (7.6-11.3); Monocytes % 3.1 % (3.3-12.3); Neutrophils % 94.8 % (41.7-73.7); Platelets 216 thou/uL (152-406); RBC Red Blood Cell Count 4.15 M/uL (4.33-5.43); Red Cell Distribution Width 13.2 % (12.1-15.2)
[2024-01-23 06:42] LABS: Magnesium 2.7 mg/dL (1.6-2.4)
[2024-01-23] MEDS: ALBUTEROL INHALER 200 PUFF/6.7 GM IH PRN (08:58)
[2024-01-23] MEDS: GLYCOPYRROLATE PO SCH (09:00)
[2024-01-23] MEDS: FORMOTEROL FUM PO SCH (09:00)
--- NOTE | 2024-01-23 14:24 | P.CNS ---
Date of Consult: 01/23/24 Reason for Consult: COPD excerabation Chief Complaint: copd exacerbation History of Present Illness: Pt is 68 yrs of age with sever COPD. Admitted with progressive dyspnea on mild exertion . No fever or cough. No chest pain Allergies Penicillins Allergy (Severe, Verified 06/25/12 21:31) Anaphylaxis Home Medications: Diclofenac Na [Voltaren D.r*] 75 mg PO BID 11/16/17 Glycopyrrolate/Formoterol Fum [Bevespi Aerosphere Inhaler] 1 puff PO DAILY 11/16/17 Lisinopril/Hydrochlorothiazide [Lisinopril-Hctz 20-12.5 mg Tab] 1 tab PO DAILY 11/16/17 Albuterol Neb [Proventil 0.083% Neb Soln] 2.5 mg NEB [id number] #60 amp 11/18/17 Ipratropium Neb [Atrovent*] 0.5 mg NEB [id number] #60 amp 11/18/17 Folic Acid 1 mg PO DAILY #30 tablet 02/05/18 Mometasone/Formoterol [Dulera 100 Mcg/5 Mcg Inhaler] 2 puff IH BID #1 inhaler 02/05/18 Thiamine HCl [Vitamin B-1*] 100 mg PO DAILY #30 tablet 02/05/18 predniSONE [Prednisone*] 40 mg PO DAILY #10 tab 02/05/18 - Past Medical/Surgical History Diabetic: Yes -: HTN -: COPD -: HDL -: DM non-insulin dependent -: back surgery-fusion -: ankle right surgery -: finger surgery on the left - Family History father's side Medical History: Cancer, Other (see notes) Notes: lung cancer - Social History Smoking Status: Former smoker Alcohol use: No CD- Drugs: No Caffeine use: Yes Place of Residence: Home Review of Systems 10-point ROS is otherwise unremarkable General: Weakness Respiratory: Shortness of Breath Physical Examination Temp Pulse Resp BP Pulse Ox 98 F 80 16 160/85 H 96 01/23/24 12:00 01/23/24 12:00 01/23/24 12:00 01/23/24 12:00 01/23/24 12:00 General: Alert, Mild distress Respiratory: Diminished, Expiratory wheezes Cardiovascular: No edema, Normal pulses, Regular rate/rhythm Gastrointestinal: Normal bowel sounds, Soft and benign - Problems (1) COPD with acute exacerbation Onset Date: 11/16/17 Current Visit: No Status: Acute Plan: Age 68 admitted with COPD exacerbation Scans and Xra no sig changes.Bicarb elevated. Normal BNP. change to po levaquin and pred, Add SPironolactone, ABG Daliresp/ Intolerant to Sprionolactone
[2024-01-23] MEDS: SPIRONOLACTONE 25 MG TABLET PO SCH (15:00)
--- NOTE | 2024-01-23 15:28 | P.PN ---
Subjective Date of Service: 01/23/24 Chief Complaint: copd exacerbation Patient reported no significant difference in his shortness of breath compared to yesterday. He is concerned about his elevated blood sugar due to the steroid. Patient denies any history of diabetes. Oxygen requirement increased to 3 L by nasal cannula. Physical Examination - Vital Signs Temperature: 98 F Blood Pressure: 160/85 Pulse: 80 Respirations: 16 Pulse Ox (%): 96 Assessment And Plan - Plan Physical examination General: Alert and oriented x3, NAD, morbidly obese. Neck: Supple, no elevated JVD Heart: Heart sounds 1 and 2 normal, regular rhythm, normal rate, no pedal edema Lungs: Bilateral upper airway transmitted sounds, diminished breath sounds bilaterally, no rhonchi or crackles. Abdomen: Obese abdomen, soft, nondistended, nontender, normal bowel sounds. Extremities: No tenderness, no deformity Skin: Normal skin turgor, no rash, no nodules or ulcers. Neuro: No focal motor deficit. Normal speech. Psychiatry: Normal mood, no agitation. Diagnosis: COPD exacerbation Chronic respiratory failure with hypoxia Morbid obesity Essential hypertension Hyperlipidemia Diabetes mellitus type 2 Plan: COPD exacerbation Scheduled DuoNeb Pulmonary Dr. Barrios input appreciated. IV steroid transition to oral prednisone Aldactone and Roflumilast added by Dr. Barrios IV Lasix as needed. Blood cultures; no growth IV antibiotics transitioned to oral Levaquin Hyperglycemia Likely steroid-induced hyperglycemia Patient denies history of diabetes Continue insulin sliding scale. Check hemoglobin A1c. Hypertension Blood pressure is elevated on amlodipine. Resume home dose lisinopril hydrochlorothiazide Hyperlipidemia Continue home dose lipitor Anxiety disorder Patient states he has not tolerated Zoloft in the past and had tremor with. He stated BuSpar makes him worse. Continue Xanax as needed. DVT prophylaxis: Heparin SQ Advanced directive: Full code.
[2024-01-23] MEDS: ROFLUMILAST 500 MCG TABLET PO SCH (15:58)
[2024-01-23] MEDS: acetaZOLAMIDE 250 MG TAB PO SCH (17:49)
[2024-01-23 17:53] LABS: Blood O2 Saturation 68.5 % (92-98.5)
[2024-01-23 17:54] LABS: Arterial Blood Carboxyhemoglob 0.8 % (0-1.5); Blood Gas Oxyhemoglobin 66.6 % (94-97); Blood Gas THB 17.7 g/dl (12-18)
[2024-01-23] MEDS: predniSONE 20 MG TAB PO SCH (20:23)
[2024-01-24 05:57] LABS: Absolute Lymphocytes (CBC) 0.2 K/uL (0.7-4.9); Absolute Monocytes 1.2 K/uL (0.1-1.3); Absolute Neutrophil 14.4 K/uL (1.8-8.0); Basophils % 0.2 % (0-1.3); Hematocrit 39.4 % (39.6-49.0); Hemoglobin 13.2 g/dL (13.6-17.9); Lymphocytes % 1.6 % (15.3-44.8); MCHC 33.6 g/dL (32.0-36.0); MCV 98.4 fL (80-100); MPV 9.1 fL (7.6-11.3); Monocytes % 7.5 % (3.3-12.3); Neutrophils % 90.7 % (41.7-73.7); Nucleated Red Blood Cells % 0.1 % (0-0); Platelets 203 thou/uL (152-406); Red Cell Distribution Width 12.9 % (12.1-15.2)
[2024-01-24 06:09] LABS: Anion Gap 7.7 mEq/L (5.0-15.0); Potassium 3.7 mEq/L (3.5-5.1)
[2024-01-24] MEDS ORDERED: HOME MED 1 EA UNK (Lisinopril/Hydrochlorothiazide [Lisinopril-Hctz 20-12.5 Mg Tab] Tablet) PO SCH (09:00)
[2024-01-24] MEDS ORDERED: lisinopriL 20 MG TAB PO SCH (09:00)
[2024-01-24] MEDS: levoFLOXacin 750 MG TAB PO SCH (10:22)
[2024-01-24] MEDS: hydroCHLOROthiazide 12.5 MG CAP PO SCH (10:23)
[2024-01-24] MEDS: POTASSIUM CL SA 10 MEQ TAB PO ONE (10:24)
--- NOTE | 2024-01-24 11:26 | P.PN ---
Date of Service: 01/24/24 Subjective: Doing okay, doesn't feel worse Continues with SOB, worsened with exertion/light activity BiPAP in room but never placed on patient last night feels some improvement after breathing treatments BiPAP mask causing patient anxiety ROS: 10 point ROS as noted above, otherwise negative Physical Exam: GEN: Alert, NAD; on BIPAP CV: Regular rate and rhythm, no edema Pulm: diminished bilaterally +cough ABD: soft, nontender, nondistended Neuro: Normal speech, normal affect Problem List: Acute on chronic hypoxic respiratory failure secondary to Acute on chronic COPD exacerbation Anxiety Hyperglycemia, suspect steroid induced Hypertension Hyperlipidemia Acute on chronic hypoxic respiratory failure secondary to Acute on chronic COPD exacerbation on admission, presents with worsening shortness of breath, productive cough for ~1 day. On home oxygen. Uses ~2-3L at home. +Former Smoker quit 15+ years ago. IV Azithromycin/Rocephin (01/20-01/22) deescalated to PO levaquin (01/23-) Blood cx (01/19): NGTD continue PO prednisone, duonebs Daliresp, diamox added 01/22 per pulm echo ordered to eval EF / stenosis confirm home meds, restart as appropriate Dr. Barrios, pul is following. BiPAP as needed may benefit from home NIV PT consult Anxiety Patient states he has not tolerated Zoloft in the past and caused tremors. He stated BuSpar makes him worse. Continue Xanax as needed. Hyperglycemia, suspect steroid induced Likely steroid-induced hyperglycemia Patient denies history of diabetes Continue insulin sliding scale. IV steroids deescalated to PO prednisone 01/22 A1c: 6.7 Hypertension Hyperlipidemia confirm home meds, restart as appropriate resume amlodipine, HCTZ, statin VTE: heparin sq Code: Full Dispo: Home, ~1-2 days Pending breathing improves Time Spent Managing Pts Care (In Minutes): 55
--- NOTE | 2024-01-24 11:49 | P.PN ---
Subjective Date of Service: 01/24/24 Chief Complaint: copd exacerbation No change in patient's condition he is hypoxic hypercapnic BiPAP was not started last night breathing a little better Review of Systems Unremarkable General: Weakness Respiratory: Shortness of Breath Physical Examination - Vital Signs Temperature: 97.3 F Blood Pressure: 161/76 Pulse: 69 Respirations: 18 Pulse Ox (%): 96 - Physical Exam General: Alert, Oriented x3, Mild distress Respiratory: Clear to auscultation bilaterally, Diminished Cardiovascular: Regular rate/rhythm, Normal S1 S2, Edema (1+ edema) Assessment And Plan - Current Problems (Diagnosis) (1) COPD with acute exacerbation Onset Date: 11/16/17 Current Visit: No Status: Acute Plan: Patient has hypoxic hypercapnic respiratory failure which is he is in stable condition will qualify for home noninvasive ventilator due to his COPD BiPAP not suitable history of obstructive sleep apnea continue with diuretics I have added Diamox and is intolerant to spironolactone Patient has chronic stable respiratory failure
[2024-01-25 06:13] LABS: Anion Gap 6.2 mEq/L (5.0-15.0); Magnesium 2.6 mg/dL (1.6-2.4); Potassium 4.2 mEq/L (3.5-5.1)
[2024-01-25 09:11] VITALS: BP 149/78; TEMP 97.5
[2024-01-25] MEDS: FUROSEMIDE 40 MG TABLET PO SCH (09:11)
--- NOTE | 2024-01-25 11:04 | ECHO ---
HEIGHT: 5 ft 11 in WEIGHT: 253 lb 0 oz DATE OF STUDY: 01/24/[address]: Salty Barrios MD 2-DIMENSIONAL: YES M.MODE: YES DOPPLER: YES COLOR FLOW: YES TDS: YES PORTABLE: YES DEFINITY: NO BUBBLE STUDY: NO DIAGNOSIS: CONGESTIVE HEART FAILURE CARDIAC HISTORY: CATHERIZATION: NO SURGERY: NO PROSTHETIC VALVE: NO PACEMAKER: NO MEASUREMENTS (cm) DIASTOLIC (NORMALS) SYSTOLIC (NORMALS) IVSd 1.1 (0.6-1.2) LA Diam 3.0 (1.9-4.0) LVEF 60% LVIDd 5.2 (3.5-5.7) LVIDs 3.7 (2.0-3.5) %FS 29% LVPWd 1.1 (0.6-1.2) Ao Diam 3.0 (2.0-3.7) 2 DIMENSIONAL ASSESSMENT: RIGHT ATRIUM: NORMAL LEFT ATRIUM: NORMAL RIGHT VENTRICLE: NORMAL LEFT VENTRICLE: NORMAL TRICUSPID VALVE: MILD TRICUSPID REGURGITATION MITRAL VALVE: TRACE MITRAL REGURGITATION PULMONIC VALVE: NORMAL AORTIC VALVE: NORMAL PERICARDIAL EFFUSION: NONE AORTIC ROOT: NORMAL LEFT VENTRICULAR WALL MOTION: NORMAL. DOPPLER/COLOR FLOW: NORMAL. COMMENTS: 1. NORMAL LEFT VENTRICULAR SYSTOLIC FUNCTION. LEFT VENTRICULAR EJECTION FRACTION 60%. NORMAL WALL MOTION. 2. NORMAL DIASTOLIC FUNCTION. 3. NORMAL FILLING PRESSURES. TECHNOLOGIST: RADHA GIL
[2024-01-25 12:07] VITALS: O2SAT 97
--- NOTE | 2024-01-25 12:11 | P.PN ---
Subjective Date of Service: 01/25/24 Chief Complaint: copd exacerbation Patient is improving he says he feels better shortness of breath is improved edema has declined r tolerating BiPAP Review of Systems General: Weakness Respiratory: Shortness of Breath Physical Examination - Vital Signs Temperature: 97.5 F Blood Pressure: 149/78 Pulse: 62 Respirations: 23 Pulse Ox (%): 97 - Physical Exam General: Alert, Oriented x3 Respiratory: Clear to auscultation bilaterally, Diminished Cardiovascular: No edema, Regular rate/rhythm Assessment And Plan - Current Problems (Diagnosis) (1) COPD with acute exacerbation Onset Date: 11/16/17 Current Visit: No Status: Acute Plan: Patient has underlying terminal COPD echocardiogram is normal doing better likely has underlying cor pulmonale with diuretics Lasix and this Diamox patient is intolerant to spironolactone approval for NIV is pending vital signs oxygenation stable white count is declining can be discharged home on levofloxacin prednisone as well
--- NOTE | 2024-01-26 06:36 | P.DS ---
Admission Date: 01/21/24 Discharge Date: 01/25/24 Disposition: DC HOME/HOME HEALTH CARE Discharge Condition: GOOD Reason for Admission: copd exacerbation Consultations: Pulmonology - Dr. Barrios Brief History of Present Illness: 68 yo M, PMH: COPD on home oxygen (3-4 L daily), DM [id number], HDL, and HTN Patient presented to the emergency room complaining of shortness of breath and productive cough x 1 day. The patient has a history of COPD exacerbations, and states his last exacerbation was in 2019. The patient is on home oxygen, and states his cough has gotten worse and is now productive. He is a former smoker who quit 15 years ago. The patient states he has attempted to increase his oxygen at home, but reports minimal improvement in his symptoms. He states nothing worsens his symptoms. He denies fever, and urinary symptoms. Hospital Course: Problem List: Acute on chronic hypoxic respiratory failure secondary to Acute on chronic COPD exacerbation Anxiety Hyperglycemia, suspect steroid induced Hypertension Hyperlipidemia Physician discharge instructions: Patient presented with worsening shortness of breath, productive cough for ~1 day most consistent with acute on chronic COPD exacerbation. Chest xray, CT chest/abdomen were negative for any acute findings but did note moderate-severe centrilobular emphysema. Echocardiogram with normal EF, wall motion, diastolic function - only noted trace mitral regurgitation and mild tricuspid regurgitation. Dr. Barrios, Pulmonology was consulted. Patient received steroids in addition to nebulizers, daliresp, diamox and had improvement of his symptoms. BiPAP settings were adjusted and patient was able to tolerate mask for few hours. Patient was feeling better, breathing more comfortable on his home oxygen settings, afebrile > 24 hours, and was deemed stable for discharge. Dr. Barrios also felt patient would benefit from an outpatient NIV, currently in the process to be setup, to be delivered after discharge. Patient tolerated well, and CO2 did improve with initiation of NIV. He was also started on empiric antibiotics on admission to cover possible pneumonia. Patient is to complete 2 more days of oral levaquin for total of [address] Barrios recommended discharge on lasix and diamox for diuresis, with potassium supplementation. Medications: Levaquin x2 more days prednisone 10mg twice daily x 4 days bumex switched to furosemide (80mg daily) roflumilast 500mcg daily Potassium supplementation 20 meq daily Follow up: PCP 3-5 days Pulmonology 2-4 weeks Please call to schedule / confirm appointments recommen repeat bloodwork (Basic metabolic panel) in ~1 week to monitor renal function / electrolytes Physical Exam: GEN: Alert, NAD, oriented CV: Regular rate and rhythm, no edema Pulm: nonlabored respirations on 2L NC, clear bilaterally ABD: soft, nontender, nondistended Neuro: Normal speech, normal affect Vital Signs/Physical Exam: Temp Pulse Resp BP Pulse Ox 97.5 F 62 23 H 149/78 H 97 01/25/24 12:11 01/25/24 12:11 01/25/24 12:11 01/25/24 12:11 01/25/24 12:11 Laboratory Data at Discharge: WBC 15.80 thou/uL (4.3-10.9) H 01/24/24 05:19 Hgb 13.2 g/dL (13.6-17.9) L 01/24/24 05:19 Hct 39.4 % (39.6-49.0) L 01/24/24 05:19 Plt Count 203 thou/uL (152-406) 01/24/24 05:19 PT 12.0 SECONDS (9.4-12.5) 01/20/24 22:00 INR 1.07 01/20/24 22:00 APTT 29.7 SECONDS (24.3-36.9) 01/20/24 22:00 Sodium 137 mEq/L (136-145) 01/25/24 05:34 Potassium 4.2 mEq/L (3.5-5.1) D 01/25/24 05:34 BUN 37 mg/dL (7-18) H 01/25/24 05:34 Creatinine 1.10 mg/dL (0.70-1.30) 01/25/24 05:34 Glucose 173 mg/dL (74-106) H 01/25/24 05:34 Phosphorus 5.0 mg/dL (2.5-4.9) H 01/23/24 05:51 Magnesium 2.6 mg/dL (1.6-2.4) H 01/25/24 05:34 Total Bilirubin 0.4 mg/dL (0.2-1.0) 01/20/24 22:00 AST 11 U/L (15-37) L 01/20/24 22:00 ALT 38 U/L (16-61) 01/20/24 22:00 Alkaline Phosphatase 48 U/L (45-117) 01/20/24 22:00 Lipase 38 U/L (13-75) 01/20/24 22:00 Home Medications: Glycopyrrolate/Formoterol Fum [Bevespi Aerosphere Inhaler] 1 puff PO DAILY 11/16/17 Albuterol Neb [Proventil 0.083% Neb Soln] 2.5 mg NEB [id number] #60 amp 11/18/17 Ipratropium Neb [Atrovent*] 0.5 mg NEB [id number] #60 amp 11/18/17 Folic Acid 1 mg PO DAILY #30 tablet 02/05/18 Thiamine HCl [Vitamin B-1*] 100 mg PO DAILY #30 tablet 02/05/18 Albuterol Sulfate [Ventolin Hfa] 90 mcg NEB QID 01/24/24 Allopurinol 200 mg PO DAILY 01/24/24 Amlodipine [Norvasc*] 10 mg PO DAILY 01/24/24 Aspirin 81 mg PO DAILY 01/24/24 Atorvastatin Calcium 10 mg PO BEDTIME 01/24/24 Budesonide/Formoterol Fumarate [Breyna 160-4.5 Mcg Inhaler] 160 mcg NEB BID 01/24/24 Polyethylene Glycol 3350 [Miralax] 17 gm PO DAILY 01/24/24 Furosemide 2 tab PO DAILY 30 Days #60 tab 01/25/24 Potassium Chloride [Klor-Con M20] 20 meq PO DAILY 30 Days #30 tab 01/25/24 Roflumilast 500 mcg PO DAILY 30 Days #30 tab 01/25/24 acetaZOLAMIDE [Acetazolamide] 250 mg PO DAILY 30 Days #30 tab 01/25/24 levoFLOXacin [Levaquin] 750 mg PO DAILY 2 Days #2 tab 01/25/24 predniSONE [Deltasone*] 10 mg PO BID 4 Days #8 tab 01/25/24 New Medications: acetaZOLAMIDE [Acetazolamide] 250 mg PO DAILY 30 Days #30 tab predniSONE [Deltasone*] 10 mg PO BID 4 Days #8 tab Furosemide 2 tab PO DAILY 30 Days #60 tab Potassium Chloride [Klor-Con M20] 20 meq PO DAILY 30 Days #30 tab levoFLOXacin [Levaquin] 750 mg PO DAILY 2 Days #2 tab Roflumilast 500 mcg PO DAILY 30 Days #30 tab Physician Discharge Instructions: Physician discharge instructions: Patient presented with worsening shortness of breath, productive cough for ~1 day most consistent with acute on chronic COPD exacerbation. Chest xray, CT chest/abdomen were negative for any acute findings but did note moderate-severe centrilobular emphysema. Echocardiogram with normal EF, wall motion, diastolic function - only noted trace mitral regurgitation and mild tricuspid regurgitation. Dr. Barrios, Pulmonology was consulted. Patient received steroids in addition to nebulizers, daliresp, diamox and had improvement of his symptoms. BiPAP settings were adjusted and patient was able to tolerate mask for few hours. Patient was feeling better, breathing more comfortable on his home oxygen settings, afebrile > 24 hours, and was deemed stable for discharge. Dr. Barrios also felt patient would benefit from an outpatient NIV, currently in the process to be setup, to be delivered after discharge. Patient tolerated well, and CO2 did improve with initiation of NIV. He was also started on empiric antibiotics on admission to cover possible p neumonia. Patient is to complete 2 more days of oral levaquin for total of [address] Barrios recommended discharge on lasix and diamox for diuresis, with potassium supplementation. Medications: Levaquin x2 more days prednisone 10mg twice daily x 4 days bumex switched to furosemide (80mg daily) roflumilast 500mcg daily Potassium supplementation 20 meq daily Follow up: PCP 3-5 days Pulmonology 2-4 weeks Please call to schedule / confirm appointments recommen repeat bloodwork (Basic metabolic panel) in ~1 week to monitor renal function / electrolytes Rollator was delivered to bedside prior to discharge by Guerda Leonardo-GAVIOTA/CM. Referral for home health has been sent to: [facility] [phone] fax [phone] Kristen has been notified of discharge today for delivery of BiPAP. Followup: Salty Barrios MD [ACTIVE - CAN ADMIT] - 1-2 Weeks Gurjit Bell MD [Primary Care Provider] - 1 Week Time spent managing pt's care (in minutes): 45
== END 2024-01-25 17:07 | disposition home health service (06) | DRG 190 ==
LOC: ER 21:32 → ERHOLD 01-21 02:55 → 2ND 01-21 03:42
PROVIDERS: ADMIT Internal Medicine; ATTEND Hospitalist
PROC: 4A033R1 Measurement of Arterial Saturation, Peripheral, Percutaneous Approach (ICD-10-PCS; principal; 2024-01-23)
PROC: 5A09357 Assistance with Respiratory Ventilation, Less than 24 Consecutive Hours, Continuous Positive Airway Pressure (ICD-10-PCS; 2024-01-24)
DX: J43.2 Centrilobular emphysema (principal); J18.9 Pneumonia, unspecified organism; J96.21 Acute and chronic respiratory failure with hypoxia; J44.1 Chronic obstructive pulmonary disease with (acute) exacerbation; J44.0 Chronic obstructive pulmonary disease with (acute) lower respiratory infection; I10 Essential (primary) hypertension; F32.A Depression, unspecified; E66.01 Morbid (severe) obesity due to excess calories; F41.9 Anxiety disorder, unspecified; E78.5 Hyperlipidemia, unspecified; I08.1 Rheumatic disorders of both mitral and tricuspid valves; T38.0X5A Adverse effect of glucocorticoids and synthetic analogues, initial encounter; R73.9 Hyperglycemia, unspecified; Z88.0 Allergy status to penicillin; Z88.8 Allergy status to other drugs, medicaments and biological substances; Z79.82 Long term (current) use of aspirin; Z99.81 Dependence on supplemental oxygen; Z68.35 Body mass index [BMI] 35.0-35.9, adult; Z11.52 Encounter for screening for COVID-19; Z79.52 Long term (current) use of systemic steroids; Z79.84 Long term (current) use of oral hypoglycemic drugs; Z79.899 Other long term (current) drug therapy; Z87.891 Personal history of nicotine dependence
CPT/HCPCS: 36415; 36600; 71045; 71260; 74177; 80048; 80076; 81001; 82550; 82805; 82947; 83036; 83690; 83735; 83880; 84100; 84439; 84443; 84484; 85025; 85379; 85610; 85730; 86140; 87040; 87804; 87811; 93005; 93306; 94660; 94760; 96365; 96375; 97116; 97161; 97530; 99285; J0696; J1644; J1940; J2919; J7050; J7512; J7613; J7644; Q9967

== ENCOUNTER 2024-02-09 01:10 | Emergency (ER) | payer OTHER ==
[2024-02-09] MEDS ORDERED: IPRATROPIUM BROM 0.5MG/2.5ML ONE (02:25)
[2024-02-09] MEDS ORDERED: NA CHLORIDE 0.9% 1,000 ML ONE (02:26)
[2024-02-09] MEDS ORDERED: METHYLPREDNISOLONE 125 MG INJ ONE (02:26)
[2024-02-09 03:32] LABS: Absolute Basophils 0.1 K/uL (0-0.5); Absolute Eosinophils 0.1 K/uL (0-0.5); Absolute Lymphocytes (CBC) 0.9 K/uL (0.7-4.9); Absolute Monocytes 0.9 K/uL (0.1-1.3); Absolute Neutrophil 10.9 K/uL (1.8-8.0); Basophils % 0.4 % (0-1.3); Hematocrit 39.4 % (39.6-49.0); Hemoglobin 13.5 g/dL (13.6-17.9); Lymphocytes % 6.6 % (15.3-44.8); MCH 32.6 pg (27.0-35.0); MCHC 34.2 g/dL (32.0-36.0); MCV 95.3 fL (80-100); MPV 8.7 fL (7.6-11.3); Platelets 223 thou/uL (152-406); RBC Red Blood Cell Count 4.13 M/uL (4.33-5.43)
[2024-02-09 03:35] LABS: PTT, Activated Partial Thromb 31.5 SECONDS (24.3-36.9); Protime INR 1.26
[2024-02-09 03:51] LABS: Albumin 3.4 g/dL (3.4-5.0); Albumin/Globulin Ratio 0.9 (1.1-1.8); Anion Gap 9.7 mEq/L (5.0-15.0); Bilirubin Direct 0.2 mg/dL (0-0.2); Bilirubin Indirect, Calculated 0.5 mg/dL (0.2-0.8); Bilirubin Total 0.7 mg/dL (0.2-1.0); Magnesium 1.6 mg/dL (1.6-2.4); Potassium 2.7 mEq/L (3.5-5.1); Protein, Total 7.4 g/dL (6.4-8.2)
--- NOTE | 2024-02-09 04:29 | RAD REPORT ---
EXAM DESCRIPTION: Chest Single View CLINICAL HISTORY: CHEST PAIN COMPARISON: 01/20/2024 FINDINGS: 1 view(s) of the chest. Tubes and lines: None. Cardiomediastinal silhouette: Atherosclerotic calcification of the thoracic aorta. Cardiomegaly. Lungs: Low lung volumes. Bronchial wall thickening with bilateral perihilar opacities. Upper lung lisset ency. No pneumothorax. Bones: No acute osseous abnormality. Degenerative change of the spine and shoulders. Upper abdomen: No abnormality identified. IMPRESSION: 1. Bilateral perihilar opacities. These findings could be seen with bronchitis or developing bronch opneumonia. 2. Obstructive lung disease. 3. Cardiomegaly. Electronically signed by: Rubio Tolbert DO 02/09/2024 03:36 AM [facility] [id number] Due to temporary technical issues with the PACS/[employer] reporting system, reports are being mulugeta d by the in-house radiologist without review as a courtesy to ensure prompt reporting the interpreting radiologist is fully responsible for the content of the report. Transcribed Date/Time: 02/09/2024 4:29 AM
--- NOTE | 2024-02-09 06:13 | RAD REPORT ---
PROCEDURE: CT Neck With Intravenous Contrast CLINICAL INDICATION: The patient is 68 years old and is Male; dysphagia Bed Name: 6 TECHNIQUE: Axial computed tomography images of the neck with intravenous contrast. Sagittal and coronal reform atted images were created and reviewed. This CT exam was performed using one or more of the following dose reduction techniques: automated exposure control, adjustment of the mA and/or kV acc ording to patient size, and/or use of iterative reconstruction technique. COMPARISON: No relevant prior studies available. FINDINGS: BRAIN: Visualized intracranial parenchyma appears unremarkable. OROPHARYNX: Circumferential narrowing of the hypopharyngeal airway, with fatty infiltration of the perilaryngeal soft tissues and complete apposition of the glottis at the time of imaging. No discrete mass, submucosal edema, or asymmetric tissue fullness is identified within the nasopharyngea l, oropharyngeal, or hypopharyngeal airway. No significant tonsillar enlargement. No peritonsillar abscess. HYPOPHARYNX: See above. LARYNX: See above. Normal epiglottis. TRACHEA: Unremarkable RETROPHARYNGEAL SPACE: Unremarkable. No retropharyngeal free fluid or fluid collections. SUBMANDIBULAR/PAROTID GLANDS: Unremarkable Glands are normal in size. THYROID: Unremarkable No enlarged or calcified nodules. BONES/JOINTS: Multilevel cervical spondylosis with no acute osseous abnormality. SOFT TISSUES: Unremarkable. VASCULATURE: No acute findings. LYMPH NODES: No suspicious lymphadenopathy. ESOPHAGUS: Unremarkable as visualized. LUNG APICES: Unremarkable as visualized. IMPRESSION: 1. Circumferential narrowing of the hypopharyngeal airway, with fatty infiltration of the perilaryn geal soft tissues and complete apposition of the glottis at the time of imaging. No discrete mass, submucosal edema, or asymmetric tissue fullness is identified within the nasopharyngeal, oropharyngea l, or hypopharyngeal airway. Consider further evaluation by direct visualization, or barium swallow study. 2. No acute findings in the soft tissues of the neck. Electronically signed by: Alfred Berry MD 02/09/2024 05:58 AM [facility] Due to temporary technical issues with the PACS/[employer] reporting system, reports are being mulugeta d by the in-house radiologist without review as a courtesy to ensure prompt reporting the interpreting radiologist is fully responsible for the content of the report. Transcribed Date/Time: 02/09/2024 6:13 AM
--- NOTE | 2024-02-09 06:13 | RAD REPORT ---
CLINICAL HISTORY: Dysphagia. COMPARISON: XR Chest 02/09/2024. TECHNIQUE: CT CHEST ABDOMEN PELVIS WITH IV CONTRAST on 02/09/2024 2:19 AM [employer]. MIPS reconstructions w ere generated. This exam was performed according to our departmental dose-optimization program, which includes autom ated exposure control, adjustment of the mA and/or kV according to patient size and/or use of iterative reconstruction technique. FINDINGS: Vascular: Thoracic aorta is normal in course and caliber without aneurysm or dissection. Pulmonary ar teries are adequately opacified without acute or chronic filling defects. Abdominal aorta is moderately calcified without aneurysm. Pelvic arteries are patent without aneurysm or occlusion. Chest: The heart is mildly enlarged. There is no pericardial effusion. Intrathoracic lymph nodes are not enlarged. There is no hydronephrosis. Central airways are patent. There is moderate diffuse centrilobular emphy sema. There is bibasilar atelectasis. Abdomen: The liver is normal in appearance. There is no biliary dilatation. Gallbladder is normal in appearance. The pancreas and spleen are normal in appearance. Adrenal glands are normal. Posterior midpole left renal simple cyst measures 18 mm. There is no free air. There is no retroperitoneal adenopathy. Pelvis: There is no bowel obstruction. Urinary bladder is unremarkable. There is no free fluid. Appen jong is normal. Skeleton: There are old bilateral L5 pars fractures. Laminectomy was performed at L5. IMPRESSION: No clear explanation for patient's symptoms. No definite acute process. Left Bosniak I benign renal cyst measuring 1.8 cm. No follow-up imaging is recommended. JACR 2018 Mar; 264-273, Management of the Incidental Renal Mass on CT, [employer] 2020; [id number], B osniak Classification of Cystic Renal Masses, Version 2019. Electronically signed by: Rio Reece MD 02/09/2024 05:53 AM [employer] RP Due to temporary technical issues with the PACS/[employer] reporting system, reports are being mulugeta d by the in-house radiologist without review as a courtesy to ensure prompt reporting the interpreting radiologist is fully responsible for the content of the report. Transcribed Date/Time: 02/09/2024 6:13 AM
--- NOTE | 2024-02-09 06:29 | EDPHYS ---
Physician Documentation [facility] – [place], [place] Name: Feroz Raman Age: 68 yrs Sex: Male : 1955 Arrival Date: 02/09/2024 Time: 01:10 Bed 6 Private MD: ED Physician Yohannes Mon HPI: 02/08 01:28 This 68 yrs old Other Race Male presents to ER via Unassigned with complaints of sp4 Difficulty Swallowing, Breathing Difficulty. 06:28 68-year-old male with history of morbid obesity, COPD, oxygen dependence, diabetes, sp4 HDL, HTN and sleep apnea presents with reported feeling of pill stuck in his throat associated with acute dysphagia to solids associated with shortness of breath and feeling unwell. Patient was admitted recently 01/21/2024 through 01/25/2024 for acute on chronic respiratory failure, COPD exacerbation, anxiety, hyperglycemia, hypertension, hyperlipidemia. Patient reports he has a vp scientific Dr. Barrios. Patient reports he cannot tolerate his sleep apnea mask. Patient's medications include glycopyrrolate, albuterol, ipratropium, folic acid, thiamine, albuterol, allopurinol, amlodipine, aspirin, atorvastatin, budesonide/formoterol inhaler, polyethylene glycol, furosemide, potassium chloride, Roflumilast, acetazolamide, levofloxacin, prednisone.. Historical: - Allergies: 01:36 BuSpar; kd3 01:36 Lisinopril; kd3 01:36 PENICILLINS; kd3 01:36 spironolactone; kd3 01:36 Zoloft; kd3 - PMHx: 01:36 COPD; Hypertension; kd3 - Immunization history:: Adult Immunizations up to date. - Infectious Disease History:: Denies. - Social history:: Smoking status: Patient reports use of chewing tobacco. Patient/guardian denies using tobacco, the patient reports quitting approximately 15 years ago. - Family history:: not pertinent. ROS: 06:28 Constitutional: Negative for fever, chills, and weight loss, positive for dysphagia, sp4 positive shortness of breath, positive for feeling unwell. 06:28 All other systems are negative, Exam: 06:28 Constitutional: This is a well developed, well nourished patient who is awake, alert, sp4 morbidly obese male ill-appearing but nontoxic. Head/Face: Normocephalic, atraumatic. Eyes: Pupils equal round and reactive to light, extra-ocular motions intact. Lids and lashes normal. Conjunctiva and sclera are not injected. Cornea within normal limits. Periorbital areas with no swelling, redness, or edema. ENT: Nares patent. No nasal discharge, no septal abnormalities noted. Tympanic membranes are normal and external auditory canals are clear. Oropharynx with no redness, swelling, or masses, exudates, or evidence of obstruction, uvula midline. Mucous membranes moist. Neck: Trachea midline, no thyromegaly or masses palpated, and no cervical lymphadenopathy. Supple, full range of motion without nuchal rigidity, or vertebral point tenderness. Chest/axilla: Normal chest wall appearance and motion. Nontender with no deformity. No lesions are appreciated. Cardiovascular: Regular rate and rhythm with a normal S1 and S2. No gallops, murmurs, or rubs. Normal PMI, no JVD. No pulse deficits. Respiratory: Lungs have equal breath sounds bilaterally, bilateral diffuse expiratory wheezing, no retractions Abdomen/GI: Soft, with normal bowel sounds. No distension or tympany. No guarding or rebound. No evidence of tenderness throughout. Back: No spinal tenderness. No costovertebral tenderness. Skin: Warm, dry with normal turgor. Normal color with no rashes, no lesions, and no evidence of cellulitis. MS/ Extremity: Pulses equal, no cyanosis. Neurovascular intact. Full, normal range of motion. Neuro: Awake and alert, GCS 15, oriented to person, place, time, and situation. Cranial nerves II-XII grossly intact. Motor strength 5/5 in all extremities. Sensory grossly intact. Psych: Awake, alert, with orientation to person, place and time. Behavior, mood, and affect are within normal limits 06:28 ECG was reviewed by the Attending Physician. EKG at 0 323 normal sinus rhythm rate 72. Left axis deviation. Premature atrial contractions. Vital Signs: 01:33 BP 155 / 88; Pulse 89; Resp 24; Temp 97.9(O); Pulse Ox 92% on 3 lpm NC; Weight 108.41 kd3 kg; Height 5 ft. 11 in. ; Pain 0/10; 07:00 BP 160 / 83; Pulse 80; Resp 16; Pulse Ox 96% 3 lpm ; db 09:00 BP 144 / 77; Pulse 60; Resp 18; Pulse Ox 96% on 3 lpm NC; db 10:29 BP 134 / 82; Pulse 78; Pulse Ox 95% on 4 lpm NC; MAP 97 mmHg; tm6 01:33 Body Mass Index 33.33 (108.41 kg, 180.34 cm) kd3 01:33 Pain Scale: Adult kd3 Bernie Coma Score: 02:20 Eye Response: spontaneous(4). Motor Response: obeys commands(6). Verbal Response: ay oriented(5). Total: 15. 06:28 Eye Response: spontaneous(4). Motor Response: obeys commands(6). Verbal Response: sp4 oriented(5). Total: 15. MDM: 01:29 Medical Screening Exam initiated sp4 04:07 ED course: EXAM DESCRIPTION: Chest Single View CLINICAL HISTORY: CHEST PAIN COMPARISON: [facility] 01/20/2024 FINDINGS: 1 view(s) of the chest. Tubes and lines: None. Cardiomediastinal silhouette: Atherosclerotic calcification of the thoracic aorta. Cardiomegaly. Lungs: Low lung volumes. Bronchial wall thickening with bilateral perihilar opacities. Upper lung lucency. No pneumothorax. Bones: No acute osseous abnormality. Degenerative change of the spine and shoulders. Upper abdomen: No abnormality identified. IMPRESSION: 1. Bilateral perihilar opacities. These findings could be seen with bronchitis or developing bronchopneumonia. 2. Obstructive lung disease. 3. Cardiomegaly. . 05:20 ED course: EXAM DESCRIPTION: Chest Single View CLINICAL HISTORY: CHEST PAIN COMPARISON: [facility] 01/20/2024 FINDINGS: 1 view(s) of the chest. Tubes and lines: None. Cardiomediastinal silhouette: Atherosclerotic calcification of the thoracic aorta. Cardiomegaly. Lungs: Low lung volumes. Bronchial wall thickening with bilateral perihilar opacities. Upper lung lucency. No pneumothorax. Bones: No acute osseous abnormality. Degenerative change of the spine and shoulders. Upper abdomen: No abnormality identified. IMPRESSION: 1. Bilateral perihilar opacities. These findings could be seen with bronchitis or developing bronchopneumonia. 2. Obstructive lung disease. 3. Cardiomegaly. Electronically signed by: Rubio Tolbert DO 02/09/2024 03:36 AM . 06:11 ED course: PROCEDURE: CT Neck With Intravenous Contrast CLINICAL INDICATION: The sp4 patient is 68 years old and is Male; dysphagia Bed Name: 6 TECHNIQUE: Axial computed tomography images of the neck with intravenous contrast. Sagittal and coronal reformatted images were created and reviewed. This CT exam was performed using one or more of the following dose reduction techniques: automated exposure control, adjustment of the mA and/or kV according to patient size, and/or use of iterative reconstruction technique. COMPARISON: No relevant prior studies available. FINDINGS: BRAIN: Visualized intracranial parenchyma appears unremarkable. OROPHARYNX: Circumferential narrowing of the hypopharyngeal airway, with fatty infiltration of the perilaryngeal soft tissues and complete apposition of the glottis at the time of imaging. No discrete mass, submucosal edema, or asymmetric tissue fullness is identified within the nasopharyngeal, oropharyngeal, or hypopharyngeal airway. No significant tonsillar enlargement. No peritonsillar abscess. HYPOPHARYNX: See above. LARYNX: See above. Normal epiglottis. TRACHEA: Unremarkable RETROPHARYNGEAL SPACE: Unremarkable. No retropharyngeal free fluid or fluid collections. SUBMANDIBULAR/PAROTID GLANDS: Unremarkable Glands are normal in size. THYROID: Unremarkable No enlarged or calcified nodules. BONES/JOINTS: Multilevel cervical spondylosis with no acute osseous abnormality. SOFT TISSUES: Unremarkable. VASCULATURE: No acute findings. LYMPH NODES: No suspicious lymphadenopathy. ESOPHAGUS: Unremarkable as visualized. LUNG APICES: Unremarkable as visualized. IMPRESSION: 1. Circumferential narrowing of the hypopharyngeal airway, with fatty infiltration of the perilaryngeal soft tissues and complete apposition of the glottis at the time of imaging. No discrete mass, submucosal edema, or asymmetric tissue fullness is identified within the nasopharyngeal, oropharyngeal, or hypopharyngeal airway. Consider further evaluation by direct visualization, or barium swallow study. 2. No acute findings in the soft tissues of the neck. Electronically signed by: Alfred Berry MD 02/09/2024 05:58 AM . ED course: CT - CLINICAL HISTORY: Dysphagia. COMPARISON: XR Chest 02/09/2024. TECHNIQUE: CT CHESTABDOMEN PELVIS WITH IV CONTRAST on 02/09/2024 2:19 AM [employer]. MIPS reconstructions were generated. This exam was performed according to our departmental dose-optimization program, which includes automated exposure control, adjustment of the mA and/or kV according to patient size and/or use of iterative reconstruction technique. FINDINGS: Vascular: Thoracic aorta is normal in course and caliber without aneurysm or dissection. Pulmonary arteries are adequately opacified without acute or chronic filling defects. Abdominal aorta is moderately calcified without aneurysm. Pelvic arteries are patent without aneurysm or occlusion. Chest: The heart is mildly enlarged. There is no pericardial effusion. Intrathoracic lymph nodes are not enlarged. There is no hydronephrosis. Central airways are patent. There is moderate diffuse centrilobular emphysema. There is bibasilar atelectasis. Abdomen: The liver is normal in appearance. There is no biliary dilatation. Gallbladder is normal in appearance. The pancreas and spleen are normal in appearance. Adrenal glands are normal. Posterior midpole left renal simple cyst measures 18 mm. There is no free air. There is no retroperitoneal adenopathy. Pelvis: There is no bowel obstruction. Urinary bladder is unremarkable. There is no free fluid. Appendix is normal. Skeleton: There are old bilateral L5 pars fractures. Laminectomy was performed at L5. IMPRESSION: No clear explanation for patient's symptoms. No definite acute process. Left Bosniak I benign renal cyst measuring 1.8 cm. No follow-up imaging is recommended. . 06:33 Differential diagnosis: apthous stomatitis, bronchitis, epiglottitis, sp4 gingivostomatitis, group A strep tonsillitis. Data reviewed: vital signs, nurses notes, old medical records, lab test result(s), EKG, radiologic studies, CT scan, plain films. Consideration of Admission/Observation Escalation of care including admission/observation considered. ED course: Will go ahead and admit for COPD management. Patient may warrant outpatient GI workup for acute dysphagia.. 07:39 ED course: CT has revealed . sp4 07:44 ED course: CT has revealed circumferential narrowing of hypopharyngeal airway with sp4 fatty infiltration of perilaryngeal soft tissue with complete apposition of the glottis at the time of the imaging. No discrete mass, no asymmetric tissue fullness, this finding has a raised concern in the admitting service. Admitting service request transfer for further level of care secondary to acute dysphagia for consultation with gastroenterology and possibly ENT. Patient was informed about transfer and is agreeable to the transfer to [facility].. 07:50 Transition of care: After a detail discussion of the patient's case, care is sp4 transferred to Yohannes Mon MD. 08:19 ED course: Discussed with limnologist who begrudgingly excepted patient for transfer. I ec2 reiterated that our hospitalist here was uncomfortable taking the patient given the concern for the CT findings and requiring more advanced cares.. 02/08 01:29 Order name: BMP; Complete Time: 05:18 4 02/08 01:29 Order name: Blood Culture Adult (2) 4 02/08 01:29 Order name: CBC with Diff; Complete Time: 05:18 4 02/08 01:29 Order name: CPK; Complete Time: 05:18 02/08 01:29 Order name: Hepatic Function; Complete Time: 05:18 02/08 01:29 Order name: Lipase; Complete Time: 05:18 02/08 01:29 Order name: Magnesium; Complete Time: 05:18 02/08 01:29 Order name: NT PRO-BNP; Complete Time: 05:18 02/08 01:29 Order name: PT-INR; Complete Time: 05:18 02/08 01:29 Order name: Ptt, Activated; Complete Time: 05:18 02/08 01:29 Order name: Troponin HS; Complete Time: 05:18 02/08 01:29 Order name: XRAY CXR (1 view); Complete Time: 08:02 02/08 02:19 Order name: CT Soft Tissue Neck W/contr; Complete Time: 08:02 02/08 02:19 Order name: CT Chest, Abdomen, Pelvis - W/Contrast; Complete Time: 08:02 02/08 01:29 Order name: EKG; Complete Time: 01:30 02/08 01:29 Order name: Cardiac monitoring; Complete Time: 03:29 02/08 01:29 Order name: EKG - Nurse/Tech; Complete Time: 03:29 02/08 01:29 Order name: IV Saline Lock; Complete Time: 03:29 02/08 01:29 Order name: Labs collected and sent; Complete Time: 03:29 02/08 01:29 Order name: O2 Per Protocol; Complete Time: 03:29 sp4 02/08 01:29 Order name: O2 Sat Monitoring; Complete Time: : sp4 EC:23 Rate is 72 beats/min. Rhythm is irregular, Sinus Rhythm with PACs. Left axis deviation sp4 noted. SD interval is normal. QRS interval is normal. QT interval is normal. No Q waves. T waves are Normal. No ST changes noted. Clinical impression: No evidence of ischemia. Interpreted by me. Reviewed by me. Administered Medications: 02:37 Not Given (Physician Discretion): ns 0.9% 1000 ml IV at 125 ml/hr Per protocol; to be dd2 given as a bolus over 60 minutes 03:30 Drug: Ipratropium Inhalation Aerosol 0.5 mg Inhalation once; Every 20 min for a total ay of 3 treatments x3 Route: Inhalation; 03:30 Follow up: Response: No adverse reaction ay 03:31 Drug: Ipratropium Inhalation Aerosol 0.5 mg Inhalation once; Every 20 min for a total ay of 3 treatments x3 Route: Inhalation; 03:31 Drug: NS 0.9% IV 1000 ml IV at 125 ml/hr Per protocol; DO NOT BOLUS PER DR. LUCRECIA mancuso Route: IV; Rate: 125 ml/hr; Site: right antecubital; 08:10 Follow up: Response: No adverse reaction; IV Status: Infusion continued upon admission db 03:32 Drug: MethylPrednisoLONE IVP 125 mg IVP once Route: IVP; Site: right antecubital; ay 03:36 Follow up: Response: No adverse reaction ay 06:00 Drug: Ipratropium Inhalation Aerosol 0.5 mg Inhalation once; Every 20 min for a total db of 3 treatments x3 {Note: given by numerical control operator.} Route: Inhalation; 07:24 Follow up: Response: No adverse reaction db 06:42 Drug: Rocephin - Rocephin (cefTRIAXone) IVPB 1 grams IVPB once over 30 mins; (mix in 50 ay mL NS) Route: IVPB; Infused Over: 30 mins; Site: right antecubital; 07:05 Follow up: Response: No adverse reaction; IV Status: Completed infusion; IV Intake: 50mldb 06:42 Drug: metoCLOPramide IVP 10 mg IVP once; over 1 to 2 minutes Route: IVP; Site: right ay antecubital; 06:53 Follow up: Response: No adverse reaction ay 06:53 Drug: Zithromax IVPB 500 mg IVPB once over 1 hrs; mix in 250 mL NS Route: IVPB; Infused ay Over: 1 hrs; Site: right antecubital; 08:10 Follow up: Response: No adverse reaction; IV Status: Completed infusion; IV Intake: db 250ml 07:01 Drug: Potassium PO Effervescent Tablet 50 mEq PO once; dissolve in 4 ounces of water or ay juice Route: PO; 08:11 Follow up: Response: No adverse reaction db 08:10 Drug: Potassium Chloride IV 20 mEq IV at calculated rate once; administer over 1-2 db hours Route: IV; Rate: calculated rate; Site: right antecubital; Disposition Summary: 02/09/24 07:47 Transfer Ordered Notes: Transfer Location: [facility] sp4 Reason: Higher level of care sp4 Condition: Stable(02/09/24 07:47) sp4 Problem: new(02/09/24 07:47) sp4 Symptoms: have improved(02/09/24 07:47) sp4 Accepting Physician: [facility](02/09/24 11:43) ll1 Diagnosis - Dysphagia sp4 - Hypopharyngeal swelling, acute dysphagia to solids, acute COPD exacerbation, sp4 acute hypokalemia, acute hyponatremia, Obesity hypoventilation syndrome Forms: - Medication Reconciliation Form sp4 - SBAR form sp4 Signatures: Dispatcher [employer] Jeevan Jordan RN RN ll1 Vida Rebollar RN RN kd3 Jaimee Caruso RN RN Sy Faith MD MD sp4 Yohannes Mon MD MD ec2 TOMAS PLUMMER RN RN dd2 Richar Salmon RN RN ay Corrections: (The following items were deleted from the chart) 07:46 06:28 Inpatient Admission sp4 sp4 07:46 06:28 Henry Panchal sp4 sp4 07:46 06:28 Telemetry/MedSurg (Inpatient) sp4 sp4 07:46 06:28 Fair sp4 sp4 07:46 06:28 new sp4 sp4 07:46 06:28 have improved sp4 sp4 07:46 06:28 Standard sp4 sp4 07:46 06:28 sp4 sp4 07:46 06:28 COPD/ Chronic obstructive pulmonary disease with (acute) exacerbation sp4 sp4 07:46 06:28 Acute dysphagia, dysphagia to solids, hyponatremia, hypokalemia sp4 sp4 07:49 07:47 [facility] sp4 sp4 11:43 07:49 [facility] sp4 ll1
--- NOTE | 2024-02-09 06:29 | ER ---
Nurse's Notes [facility] Name: Feroz Raman Age: 68 yrs Sex: Male : 1955 Arrival Date: 02/09/2024 Time: 01:10 Bed 6 Private MD: Diagnosis: Dysphagia;Hypopharyngeal swelling, acute dysphagia to solids, acute COPD exacerbation, acute hypokalemia, acute hyponatremia, Obesity hypoventilation syndrome Presentation: 02/08 01:34 Chief complaint: Patient states: I recently started using a cpap. The first night went kd3 ok and then for the past couple of nights i have been getting chest pains while i have been on it at night. I also have been getting food stuck in my throat. I got worried tonight because i started having the issues swallowing so i came in. Coronavirus screen: Vaccine status: Patient reports receiving the 2nd dose of the covid vaccine. Ebola Screen: No symptoms or risks identified at this time. Initial Sepsis Screen: Does the patient meet any 2 criteria? RR > 20 per min. No. Patient's initial sepsis screen is negative. Does the patient have a suspected source of infection? No. Patient's initial sepsis screen is negative. Risk Assessment: Do you want to hurt yourself or someone else? Patient reports no desire to harm self or others. Onset of symptoms was February 09, 2024. 01:34 Method Of Arrival: Ambulatory kd3 01:34 Acuity: MILY 3 kd3 Triage Assessment: 01:36 General: Appears in no apparent distress. Behavior is calm, cooperative. Pain: Denies kd3 pain. Respiratory: Reports shortness of breath at rest. Historical: - Allergies: 01:36 BuSpar; kd3 01:36 Lisinopril; kd3 01:36 PENICILLINS; kd3 01:36 spironolactone; kd3 01:36 Zoloft; kd3 - PMHx: 01:36 COPD; Hypertension; kd3 - Immunization history:: Adult Immunizations up to date. - Infectious Disease History:: Denies. - Social history:: Smoking status: Patient reports use of chewing tobacco. Patient/guardian denies using tobacco, the patient reports quitting approximately 15 years ago. - Family history:: not pertinent. Screenin:20 [facility] ED Fall Risk Assessment (Adult) History of falling in the last 3 months, ay including since admission No falls in past 3 months (0 pts) Confusion or Disorientation No (0 pts) Intoxicated or Sedated No (0 pts) Impaired Gait No (0 pts) Mobility Assist Device Used No (0 pt) Altered Elimination No (0 pt) Score/Fall Risk Level 0 - 2 = Low Risk Oriented to surroundings, Maintained a safe environment, Educated pt \T\ family on fall prevention, incl call for assistance when getting out of bed. Abuse screen: Denies threats or abuse. Denies injuries from another. Nutritional screening: No deficits noted. Tuberculosis screening: No symptoms or risk factors identified. Assessment: 02:20 General: Appears uncomfortable, Behavior is calm, cooperative. ay 02:20 Pain: Denies pain. Neuro: Level of Consciousness is awake, alert, obeys commands, ay Oriented to person, place, time, situation. Cardiovascular: Heart tones S1 S2 Capillary refill < 3 seconds Rhythm is regular. Respiratory: Airway is patent Respiratory effort is even, labored, Breath sounds with crackles Breath sounds are diminished bilaterally. GI: Abdomen is obese, Bowel sounds present X 4 quads. : No signs and/or symptoms were reported regarding the genitourinary system. EENT: Throat is clear. Derm: Skin bruises on arms Bruising that is. Musculoskeletal: No signs and/or symptoms reported regarding the musculoskeletal system. 07:15 Reassessment: Patient appears in no apparent distress at this time. Patient and/or db family updated on plan of care and expected duration. Pain level reassessed. Patient is alert, oriented x 3, equal unlabored respirations, skin warm/dry/pink. General: Appears in no apparent distress. comfortable, Behavior is calm, cooperative. 08:00 Reassessment: Patient appears in no apparent distress at this time. Patient and/or db family updated on plan of care and expected duration. Pain level reassessed. Patient is alert, oriented x 3, equal unlabored respirations, skin warm/dry/pink. 09:28 Reassessment: Tried to call report, nurses are busy, please call back 10-15 minutes. ll1 09:54 Reassessment: CALLED [facility] TO GIVE REPORT. ROOM CHANGED TO [id number] PER STAFF. 10:04 Reassessment: REPORT GIVEN TO GAVIOTA GIFFORD AT [facility]. db 10:30 Reassessment: Patient and/or family updated on plan of care and expected duration. Pain tm6 level reassessed. Patient is alert, oriented x 3, equal unlabored respirations, skin warm/dry/pink. Vital Signs: 01:33 BP 155 / 88; Pulse 89; Resp 24; Temp 97.9(O); Pulse Ox 92% on 3 lpm NC; Weight 108.41 kd3 kg; Height 5 ft. 11 in. ; Pain 0/10; 07:00 BP 160 / 83; Pulse 80; Resp 16; Pulse Ox 96% 3 lpm ; db 09:00 BP 144 / 77; Pulse 60; Resp 18; Pulse Ox 96% on 3 lpm NC; db 10:29 BP 134 / 82; Pulse 78; Pulse Ox 95% on 4 lpm NC; MAP 97 mmHg; tm6 01:33 Body Mass Index 33.33 (108.41 kg, 180.34 cm) kd3 01:33 Pain Scale: Adult kd3 Bernie Coma Score: 02:20 Eye Response: spontaneous(4). Motor Response: obeys commands(6). Verbal Response: ay oriented(5). Total: 15. 06:28 Eye Response: spontaneous(4). Motor Response: obeys commands(6). Verbal Response: sp4 oriented(5). Total: 15. ED Course: 01:12 Patient arrived in ED. gm2 01:28 Sy Klein MD is Attending Physician. sp4 01:36 Triage completed. kd3 01:36 Arm band placed on right wrist. kd3 02:20 Patient has correct armband on for positive identification. Bed in low position. Call ay light in reach. Side rails up X 1. Adult w/ patient. Provided Education on: plan of care. Warm blanket given. 02:20 No provider procedures requiring assistance completed. ay 02:24 Inserted saline lock: 20 gauge in right antecubital area, using aseptic technique. ay 02:30 XRAY CXR (1 view) In Process Unspecified. EDMS 02:40 Initial lab(s) drawn, First set of blood cultures drawn by me, Second set of blood ay cultures drawn by me, EKG done, by ED staff, reviewed by Sy Klein MD. Initial Neb Treatment Given as ordered Subsequent Neb Treatment Given as ordered. Oxygen administration via nasal cannula \T\ 3L/min. 03:29 BMP Sent. ay 03:30 Blood Culture Adult (2) Sent. ay 03:30 CBC with Diff Sent. ay 03:30 PT-INR Sent. ay 03:30 Ptt, Activated Sent. ay 03:31 CPK Sent. ay 03:31 Hepatic Function Sent. ay 03:31 Lipase Sent. ay 03:32 Magnesium Sent. ay 03:35 Richar Salmon RN is Primary Nurse. ay 03:36 NT PRO-BNP Sent. ay 03:36 Troponin HS Sent. ay 04:35 CT Soft Tissue Neck W/contr In Process Unspecified. EDMS 04:35 CT Chest, Abdomen, Pelvis - W/Contrast In Process Unspecified. EDMS 06:27 Curtis Panchal MD is Hospitalizing Provider. sp4 06:27 Hospitalizing Provider role handed off by Curtis Panchal MD sp4 06:27 Henry Panchal MD is Hospitalizing Provider. sp4 07:16 [facility] called to initiate transfer, spoke with sharlene. ty 08:06 Attending Physician role handed off by Sy Klein MD ec2 08:06 Yohannes Mon MD is Attending Physician. ec2 08:50 Paperwork for [id number] handed to Jaimee MEEK. ty 09:57 Helped patient to the bathroom. sa1 10:23 [facility] called. ty Administered Medications: 02:37 Not Given (Physician Discretion): ns 0.9% 1000 ml IV at 125 ml/hr Per protocol; to be dd2 given as a bolus over 60 minutes 03:30 Drug: Ipratropium Inhalation Aerosol 0.5 mg Inhalation once; Every 20 min for a total ay of 3 treatments x3 Route: Inhalation; 03:30 Follow up: Response: No adverse reaction ay 03:31 Drug: Ipratropium Inhalation Aerosol 0.5 mg Inhalation once; Every 20 min for a total ay of 3 treatments x3 Route: Inhalation; 03:31 Drug: NS 0.9% IV 1000 ml IV at 125 ml/hr Per protocol; DO NOT BOLUS PER DR. KLEIN ay Route: IV; Rate: 125 ml/hr; Site: right antecubital; 08:10 Follow up: Response: No adverse reaction; IV Status: Infusion continued upon admission db 03:32 Drug: MethylPrednisoLONE IVP 125 mg IVP once Route: IVP; Site: right antecubital; ay 03:36 Follow up: Response: No adverse reaction ay 06:00 Drug: Ipratropium Inhalation Aerosol 0.5 mg Inhalation once; Every 20 min for a total db of 3 treatments x3 {Note: given by night filler.} Route: Inhalation; 07:24 Follow up: Response: No adverse reaction db 06:42 Drug: Rocephin - Rocephin (cefTRIAXone) IVPB 1 grams IVPB once over 30 mins; (mix in 50 ay mL NS) Route: IVPB; Infused Over: 30 mins; Site: right antecubital; 07:05 Follow up: Response: No adverse reaction; IV Status: Completed infusion; IV Intake: 50mldb 06:42 Drug: metoCLOPramide IVP 10 mg IVP once; over 1 to 2 minutes Route: IVP; Site: right ay antecubital; 06:53 Follow up: Response: No adverse reaction ay 06:53 Drug: Zithromax IVPB 500 mg IVPB once over 1 hrs; mix in 250 mL NS Route: IVPB; Infused ay Over: 1 hrs; Site: right antecubital; 08:10 Follow up: Response: No adverse reaction; IV Status: Completed infusion; IV Intake: db 250ml 07:01 Drug: Potassium PO Effervescent Tablet 50 mEq PO once; dissolve in 4 ounces of water or ay juice Route: PO; 08:11 Follow up: Response: No adverse reaction db 08:10 Drug: Potassium Chloride IV 20 mEq IV at calculated rate once; administer over 1-2 db hours Route: IV; Rate: calculated rate; Site: right antecubital; Medication: 02:20 VIS not applicable for this client. ay Intake: 07:05 IV: 50ml; Total: 50ml. db 08:10 IV: 250ml; Total: 300ml. db Outcome: 06:28 Decision to Hospitalize by Provider. sp4 07:47 ER care complete, transfer ordered by MD. sp4 11:43 Patient left the ED. ll1 Signatures: Dispatcher [employer] EDIN Jeevan Ramírez RN RN ll1 Vida Rebollar RN RN kd3 Jaimee Caruso RN RN db Sy Klein MD MD sp4 Yohannes Mon MD MD ec2 Nayana Cedillo gm2 Bo Signh, RN RN tm6 Stephon Judd Sultan sa1 Yakubu, Awudu, RN RN ay KAVITHA, TOMAS MEEK dd2
[2024-02-09] MEDS ORDERED: CEFTRIAXONE 1000 MG/VIAL ONE (06:31)
[2024-02-09] MEDS ORDERED: AZITHROMYCIN 500 MG INJ IVPB ONE (06:31)
[2024-02-09] MEDS ORDERED: NA CHLORIDE 0.9% 250 ML ONE (06:32)
[2024-02-09] MEDS ORDERED: METOCLOPRAMIDE 10 MG/2mL INJ ONE (06:32)
[2024-02-09] MEDS ORDERED: NA CHLORIDE 0.9% 50 ML ONE (06:32)
[2024-02-09] MEDS ORDERED: POTASSIUM 25 MEQ EFFERV TAB ONE (06:57)
[2024-02-09] MEDS ORDERED: KCL 20 MEQ/100 mL IVPB 100 ML IV ONE (07:35)
[2024-02-09 11:52] VITALS: TEMP 97.9
[2024-02-09 12:07] VITALS: BP 134/82; O2SAT 95
--- NOTE | 2024-02-10 15:43 | EKG ---
Test Date: 2024-02-09 Test Time: 03:21:18 Solar Panel Installer: MARYLOU MEASUREMENT RESULTS: Intervals: Rate: 70 MS: 162 QRSD: 108 QT: 426 QTc: 460 [place]: P: 49 MS: 162 QRS: -36 T: 46 INTERPRETIVE STATEMENTS: Atrial fibrillation Left axis deviation Septal infarct, age undetermined Abnormal ECG Compared to ECG 01/20/2024 22:09:26 Left-axis deviation now present Sinus rhythm no longer present Atrial premature complex(es) no longer present Incomplete right bundle-branch block no longer present Left anterior fascicular block no longer present Myocardial infarct finding still present Electronically Signed On 02-10-24 15:41:56 MASTER BREWER by Higinio Moreau
--- NOTE | 2024-02-13 11:11 | EKG ---
Test Date: 2024-02-09 Test Time: 03:23:30 Genetic Coordinator: MARYLOU MEASUREMENT RESULTS: Intervals: Rate: 72 MA: 158 QRSD: 114 QT: 430 QTc: 470 [place]: P: 29 MA: 158 QRS: -36 T: 47 INTERPRETIVE STATEMENTS: Sinus rhythm with premature atrial complexes in a pattern of bigeminy Left axis deviation Septal infarct, age undetermined Abnormal ECG Electronically Signed On 02-13-24 11:08:04 DOCK SUPERINTENDENT by Higinio Moreau
== END 2024-02-09 11:43 | disposition short-term general hospital (02) ==
LOC: ER 01:10
DX: R13.10 Dysphagia, unspecified (principal); J44.1 Chronic obstructive pulmonary disease with (acute) exacerbation; E87.6 Hypokalemia; E87.1 Hypo-osmolality and hyponatremia; J02.9 Acute pharyngitis, unspecified; E66.2 Morbid (severe) obesity with alveolar hypoventilation; I10 Essential (primary) hypertension; Z88.0 Allergy status to penicillin; Z88.8 Allergy status to other drugs, medicaments and biological substances; F17.220 Nicotine dependence, chewing tobacco, uncomplicated
CPT/HCPCS: 96365; 96361; 93005 ×2; 87040 ×2; 85025; 80048; 36415; 83735; 82550; 85610; 80076; 85730; 84484; 83690; 83880; 71260; 70491; 74177; 71045; 94640; 96375; 99285; Q9967; J3480; J2765; J7644; J2919; J7050; J7030; J0696

== ENCOUNTER 2024-03-23 08:25 | Observation (INO) | payer OTHER ==
[2024-03-23] MEDS ORDERED: VANCOMYCIN 1 GM/VIAL ONE (09:15)
[2024-03-23] MEDS ORDERED: CIPROFLOXACIN 400mg IV 400 MG/200 ML BAG IV ONE (09:15)
[2024-03-23] MEDS ORDERED: NA CHLORIDE 0.9% 250 ML ONE (09:15)
[2024-03-23] MEDS ORDERED: METRONIDAZOLE 500mg IVPB 500 MG/100 ML BAG IV ONE (09:16)
[2024-03-23 09:22] LABS: Absolute Basophils 0.1 K/uL (0-0.5); Absolute Eosinophils 0.5 K/uL (0-0.5); Absolute Lymphocytes (CBC) 1.1 K/uL (0.7-4.9); Absolute Monocytes 1.2 K/uL (0.1-1.3); Absolute Neutrophil 9.5 K/uL (1.8-8.0); Basophils % 0.5 % (0-1.3); Eosinophils % 4.2 % (0-4.4); Hematocrit 37.5 % (39.6-49.0); Hemoglobin 12.8 g/dL (13.6-17.9); Lymphocytes % 9.1 % (15.3-44.8); MCH 31.7 pg (27.0-35.0); MCV 93.2 fL (80-100); MPV 8.4 fL (7.6-11.3); Monocytes % 9.4 % (3.3-12.3); Neutrophils % 76.8 % (41.7-73.7); Platelets 243 thou/uL (152-406); RBC Red Blood Cell Count 4.03 M/uL (4.33-5.43); Red Cell Distribution Width 12.7 % (12.1-15.2)
[2024-03-23 09:35] LABS: ALT/SGPT 21 U/L (16-61); Albumin 3.3 g/dL (3.4-5.0); Albumin/Globulin Ratio 0.9 (1.1-1.8); Alkaline Phosphatase 92 U/L (45-117); Anion Gap 8.1 mEq/L (5.0-15.0); BUN Blood Urea Nitrogen 22 mg/dL (7-18); Bicarbonate 33 mEq/L (21-32); Bilirubin Total 0.4 mg/dL (0.2-1.0); Globulin 3.7 g/dL (2.3-3.5); Glomerular Filtration Rate 94 ml/min (=/>90); Glucose Level 104 mg/dL (74-106); Potassium 3.1 mEq/L (3.5-5.1); Sodium Level 138 mEq/L (136-145)
[2024-03-23 09:38] LABS: AST/SGOT < 10 U/L (15-37)
--- NOTE | 2024-03-23 10:17 | RAD REPORT ---
EXAMINATION: CT ABDOMEN AND PELVIS WITH CONTRAST CLINICAL INDICATION: Abdominal pain TECHNIQUE: CT abdomen and pelvis was performed, after the administration of 100 cc Isovue-300.. Sagit glenis and coronal reconstructions were obtained. One or more of the following dose reduction techniques were used: Automated exposure control, adjustment of the mA and kV according to patient si ze, and iterative reconstruction. Unless otherwise specified, incidental findings do not require dedicated imaging follow-up. [id number]. Oral contrast was not given which limits evaluation of bowel and appendix. COMPARISON: .January 2024 FINDINGS: Liver, spleen, pancreas, adrenals and right kidney appear unremarkable. Small left renal cyst. Normal appendix. Small bilateral inguinal hernias containing fat. No evidence of diverticulitis. Development of a mild to moderate compression fracture T12 vertebral body. There is approximately 35% compression of the vertebral body. Development of mild compression fracture L4 vertebral body. There is approximately 25% compression of vertebral body. Progression of a compression fracture L5 vertebral body. There is approximately 30% compression.. Pos tsurgical changes lower lumbar spine : IMPRESSION: Acute multiple compression fractures lumbar spine.
--- NOTE | 2024-03-23 11:00 | ER ---
Nurse's Notes [facility] Name: Feroz Raman Age: 68 yrs Sex: Male : 1955 Arrival Date: 03/23/2024 Time: 08:25 Bed 16 Private MD: Diagnosis: perineal abscess;Essential (primary) hypertension;Leukocytosis Presentation: 03/23 08:39 Chief complaint: Chronic wound on perineum, missed follow up appt with asiya Turk instructed by office staff to come to ED and ask for him. Coronavirus screen: At this time, the client does not indicate any symptoms associated with coronavirus-19. Ebola Screen: No symptoms or risks identified at this time. Initial Sepsis Screen: Does the patient meet any 2 criteria? No. Patient's initial sepsis screen is negative. Does the patient have a suspected source of infection? No. Patient's initial sepsis screen is negative. Risk Assessment: Do you want to hurt yourself or someone else? Patient reports no desire to harm self or others. Onset of symptoms was November 2023. 08:39 Method Of Arrival: Ambulatory hb 08:39 Acuity: MILY 3 hb Historical: - Allergies: 08:41 BuSpar; hb 08:41 PENICILLINS; hb 08:41 spironolactone; hb 08:41 Zoloft; hb 08:41 Lisinopril; hb - Home Meds: 08:41 HOME O2 NC [Active]; hb - PMHx: 08:41 COPD; Hypertension; hb - Immunization history:: Adult Immunizations up to date. - Infectious Disease History:: Denies. - Social history:: Smoking status: Patient denies any tobacco usage or history of. Screenin:25 [facility] ED Fall Risk Assessment (Adult) History of falling in the last 3 months, kc6 including since admission No falls in past 3 months (0 pts) Confusion or Disorientation No (0 pts) Intoxicated or Sedated No (0 pts) Impaired Gait No (0 pts) Mobility Assist Device Used No (0 pt) Altered Elimination No (0 pt) Score/Fall Risk Level 0 - 2 = Low Risk Oriented to surroundings, Maintained a safe environment. Abuse screen: Denies threats or abuse. Denies injuries from another. Nutritional screening: No deficits noted. Tuberculosis screening: No symptoms or risk factors identified. Assessment: 09:26 General: Appears in no apparent distress. comfortable, well groomed, well developed, kc6 Behavior is calm, cooperative, appropriate for age. Pain: Complains of pain in groin Pain currently is 5 out of 10 on a pain scale. Neuro: Level of Consciousness is awake, alert, obeys commands, Oriented to person, place, time, situation, Appropriate for age. Cardiovascular: Denies chest pain, shortness of breath, Capillary refill < 3 seconds. Respiratory: Airway is patent Trachea midline Respiratory effort is even, unlabored, Respiratory pattern is regular, symmetrical. GI: No signs and/or symptoms were reported involving the gastrointestinal system. : No signs and/or symptoms were reported regarding the genitourinary system. EENT: No signs and/or symptoms were reported regarding the EENT system. Derm: Skin is healthy with good turgor, Skin is pink, warm \T\ dry. Abscess located on groin is nickel sized, has purulent drainage, has foul odor. Musculoskeletal: No signs and/or symptoms reported regarding the musculoskeletal system. Circulation, motion, and sensation intact. Range of motion: intact in all extremities. 10:27 Reassessment: Patient appears in no apparent distress at this time. No changes from kc6 previously documented assessment. Patient and/or family updated on plan of care and expected duration. Pain level reassessed. Patient is alert, oriented x 3, equal unlabored respirations, skin warm/dry/pink. 11:30 Reassessment: Patient appears in no apparent distress at this time. No changes from kc6 previously documented assessment. Patient and/or family updated on plan of care and expected duration. Pain level reassessed. Patient is alert, oriented x 3, equal unlabored respirations, skin warm/dry/pink. 12:31 Reassessment: Patient appears in no apparent distress at this time. No changes from kc6 previously documented assessment. Patient and/or family updated on plan of care and expected duration. Pain level reassessed. Patient is alert, oriented x 3, equal unlabored respirations, skin warm/dry/pink. Vital Signs: 08:39 BP 156 / 95; Pulse 88; Resp 20; Temp 97.8; Pulse Ox 92% ; hb 12:31 BP 129 / 89; Pulse 70; Resp 19 S; Pulse Ox 97% on 3 lpm NC; kc6 ED Course: 08:30 Patient arrived in ED. ra3 08:32 Kamaljit Dia DO is Attending Physician. ms3 08:36 Carlota Antunez, GAVIOTA is Primary Nurse. kc6 08:41 Triage completed. hb 08:42 Arm band placed on. hb 09:15 Inserted saline lock: 20 gauge in left antecubital area, using aseptic technique. Blood kc6 collected. Flushed with 10 mL NS. Oxygen administration via nasal cannula \T\ 3L/min. 09:16 Patient has correct armband on for positive identification. Placed in gown. Bed in low kc6 position. Call light in reach. Side rails up X2. Adult w/ patient. Pulse ox on. NIBP on. Door closed. Noise minimized. Lights dimmed. Warm blanket given. Pillow given. 10:01 CT Abd/Pelvis - IV Contrast Only In Process Unspecified. EDMS 10:59 Henry Panchal MD is Hospitalizing Provider. ms3 14:28 No provider procedures requiring assistance completed. Patient admitted, IV remains in kc6 place. Administered Medications: 09:22 Drug: vancoMYCIN IVPB 1 grams IVPB once over 2 hrs Route: IVPB; Infused Over: 2 hrs; kc6 Site: left antecubital; 10:51 Follow up: Response: No adverse reaction; IV Status: Completed infusion; IV Intake: kc6 250ml 10:51 Drug: Ciprofloxacin IVPB 400 mg 200 ml IVPB once over 60 mins Volume: 200 ml; Route: kc6 IVPB; Infused Over: 60 mins; Site: left antecubital; 12:30 Follow up: Response: No adverse reaction; IV Status: Completed infusion; IV Intake: kc6 200ml 11:28 Drug: metroNIDAZOLE IVPB 500 mg 100 ml IVPB at 200 ml/hr once over 30 mins Volume: 100 kc6 ml; Route: IVPB; Rate: 200 ml/hr; Infused Over: 30 mins; Site: left antecubital; 12:30 Follow up: Response: No adverse reaction; IV Status: Completed infusion; IV Intake: kc6 100ml Medication: 14:29 VIS not applicable for this client. kc6 Intake: 10:51 IV: 250ml; Total: 250ml. kc6 12:30 IV: 200ml; Total: 450ml. kc6 12:30 IV: 100ml; Total: 550ml. kc6 Outcome: 10:59 Decision to Hospitalize by Provider. ms3 14:29 Admitted to ER Hold. Please see [facility] for further documentation. kc6 14:29 Condition: good 14:29 Instructed on the need for admit, 18:39 Patient left the ED. kc6 Signatures: Dispatcher [employer] EDMS Ilene Card RN GAVIOTA Kamaljit Dia DO DO ms3 Carlota Antunez RN RN kc6 Vianey Ortez
--- NOTE | 2024-03-23 11:00 | EDPHYS ---
Physician Documentation [facility] Name: Feroz Raman Age: 68 yrs Sex: Male : 1955 Arrival Date: 03/23/2024 Time: 08:25 Bed 16 Private MD: ED Physician Kamaljit Dia HPI: 03/23 10:32 This 68 yrs old Male presents to ER via Ambulatory with complaints of drainage/bleeding ms3 between rectal and testicle. 10:32 Feroz Raman is a 68-year-old male who presents to the emergency department ms3 with complaints of drainage and bleeding between the rectum and testicles, ongoing for the past three months. He reports experiencing mild pain in the affected area, rating it around a 4 or 5 on a pain scale. There are no reports of fever or chills. Mr. Raman has a history of surgery in 2021 related to this issue. He has COPD and uses a CPAP machine and is on continuous oxygen therapy. . Historical: - Allergies: 08:41 BuSpar; hb 08:41 PENICILLINS; hb 08:41 spironolactone; hb 08:41 Zoloft; hb 08:41 Lisinopril; hb - Home Meds: 08:41 HOME O2 NC [Active]; hb - PMHx: 08:41 COPD; Hypertension; hb - Immunization history:: Adult Immunizations up to date. - Infectious Disease History:: Denies. - Social history:: Smoking status: Patient denies any tobacco usage or history of. ROS: 10:32 Constitutional: Negative for fever, and chills. Cardiovascular: Negative for chest ms3 pain, and palpitations. Respiratory: Negative for shortness of breath, cough, wheezing, and pleuritic chest pain, Abdomen/GI: Negative for abdominal pain, nausea, vomiting, diarrhea, and constipation, 10:32 Back: Positive for Back pain x 4 weeks, Exam: 10:32 Constitutional: This is a well developed, well nourished patient who is awake, alert, ms3 and in no acute distress. Cardiovascular: Regular rate and rhythm with a normal S1 and S2. No gallops, murmurs, or rubs. Normal PMI, no JVD. No pulse deficits. Respiratory: Lungs have equal breath sounds bilaterally, clear to auscultation and percussion. No rales, rhonchi or wheezes noted. No increased work of breathing, no retractions or nasal flaring. Abdomen/GI: Soft, non-tender, with normal bowel sounds. No distension or tympany. No guarding or rebound. No evidence of tenderness throughout. 10:32 Skin: mild induration with opening in perineum. Mild TTP. Vital Signs: 08:39 BP 156 / 95; Pulse 88; Resp 20; Temp 97.8; Pulse Ox 92% ; hb 12:31 BP 129 / 89; Pulse 70; Resp 19 S; Pulse Ox 97% on 3 lpm NC; kc6 MDM: 08:47 Medical Screening Exam initiated ms3 09:20 ED course: Discussed case with Dr Lynch. He agrees with labs and CT. He will see ms3 patient in the ED.. 10:32 Differential diagnosis: Perineal abscess vs Fistula. ms3 11:12 Data reviewed: vital signs, nurses notes, lab test result(s), radiologic studies, and ms3 as a result, I will admit patient. Consideration of Admission/Observation Patient was admitted/placed on observation. Management of patient was discussed with the following: Hospitalist: JANET Davies, on behalf of Dr Panchal. Affiliate Marketing Coordinator: Dr Lynch- would like patient to have antibiotics, NPO after midnight, admit to Hospitalist. I considered the following discharge prescriptions or medication management in the emergency department Medications were administered in the Emergency Department. See MAR. Counseling: I had a detailed discussion with the patient and/or guardian regarding the historical points, exam findings, and any diagnostic results supporting the discharge/admit diagnosis, lab results, radiology results, the need for further work-up and treatment in the hospital. 03/23 08:47 Order name: CBC with Diff; Complete Time: 09:58 ms3 03/23 08:47 Order name: CMP; Complete Time: 09:58 ms3 03/23 18:06 Order name: Urinalysis w/ reflexes; Complete Time: 18:12 EDMS 03/23 08:57 Order name: CT Abd/Pelvis - IV Contrast Only; Complete Time: 10:18 ms3 03/23 08:57 Order name: NPO; Complete Time: 09:05 ms3 Administered Medications: 09:22 Drug: vancoMYCIN IVPB 1 grams IVPB once over 2 hrs Route: IVPB; Infused Over: 2 hrs; kc6 Site: left antecubital; 10:51 Follow up: Response: No adverse reaction; IV Status: Completed infusion; IV Intake: kc6 250ml 10:51 Drug: Ciprofloxacin IVPB 400 mg 200 ml IVPB once over 60 mins Volume: 200 ml; Route: kc6 IVPB; Infused Over: 60 mins; Site: left antecubital; 12:30 Follow up: Response: No adverse reaction; IV Status: Completed infusion; IV Intake: kc6 200ml 11:28 Drug: metroNIDAZOLE IVPB 500 mg 100 ml IVPB at 200 ml/hr once over 30 mins Volume: 100 kc6 ml; Route: IVPB; Rate: 200 ml/hr; Infused Over: 30 mins; Site: left antecubital; 12:30 Follow up: Response: No adverse reaction; IV Status: Completed infusion; IV Intake: kc6 100ml Disposition Summary: 03/23/24 10:59 Hospitalization Ordered Notes: Hospitalization Status: Observation ms3 Provider: Henry Panchal ms3 Condition: Stable ms3 Problem: new ms3 Symptoms: are unchanged ms3 Bed/Room Type: Standard ms3 Location: Telemetry/MedSurg (observation)(03/23/24 17:31) eb Room Assignment: 422(03/23/24 17:31) eb Diagnosis - perineal abscess ms3 - Essential (primary) hypertension ms3 - Leukocytosis ms3 Forms: - Medication Reconciliation Form ms3 - SBAR form ms3 - Leadership Thank You Letter ms3 Signatures: Dispatcher [employer] EDMS Ilene Card RN RN hb Botello, Elizabeth eb Sims, Marcus, DO DO ms3 Carlota Antunez RN RN kc6 Karoline Brito RN RN kb3 Corrections: (The following items were deleted from the chart) 14:28 10:59 Telemetry/MedSurg (observation) ms3 kb3 14:28 10:59 ms3 kb3 17:31 14:28 [facility] ER HOLD kb3 eb 17:31 14:28 ERHOLD- kb3 eb
[2024-03-23] MEDS ORDERED: ONDANSETRON 4 MG/2 ML VIAL IV PRN (13:37)
[2024-03-23] MEDS ORDERED: ALBUTEROL 2.5 MG/3 ML NEB SOL NEB PRN (13:37)
[2024-03-23] MEDS ORDERED: VANCOMYCIN 1 GM in NA CHLORIDE 0.9% 250 ML IVPB SCH (13:37)
[2024-03-23] MEDS ORDERED: IPRATROPIUM BROM 0.5MG/2.5ML NEB PRN (13:37)
[2024-03-23] MEDS: VANCOMYCIN 1.25 GM in NA CHLORIDE 0.9% 250 ML IVPB ONE (14:00)
[2024-03-23 15:05] VITALS: BMI 32.6
--- NOTE | 2024-03-23 15:20 | P.HP ---
Certification for Inpatient Patient admitted to: Inpatient With expected LOS: >2 Midnights Patient will require the following post-hospital care: None Practitioner: I am a practitioner with admitting privileges, knowledge of patient current condition, hospital course, and medical plan of care. Services: Services provided to patient in accordance with Admission requirements found in Title 42 Section 412.3 of the Code of Federal Regulations Patient History Date of Service: 03/23/24 History of Present Illness: 68-year-old male with history of COPD on chronic home O2, steroids, hypertension, CAD presents to the emergency department with chief complaint of perineal wound. He and his family report that he has had this wound for 3 to 4 months but recently has started bleeding. They previously saw Dr. Lynch for this a couple of years back but had been trying to take care of it at home since then. Patient was evaluated in the emergency department found to have a mild le ukocytosis, CT shows some compression fractures but does not mention any findings related to the perineal area. ED provider discussed case with general surgeryDr. Lynch who will see patient in hospital. On exam patient has a small open wound to the perineal area with mild erythema, patient and nurse report they are able to express a small amount of blood from this area. Allergies Penicillins Allergy (Severe, Verified 06/25/12 21:31) Anaphylaxis buspirone [From BuSpar] Allergy (Verified 01/23/24 16:39) Itching sertraline [From Zoloft] Allergy (Verified 01/23/24 16:39) Itching spironolactone Allergy (Verified 01/23/24 16:39) Itching lisinopril Adverse Reaction (Verified 01/23/24 16:39) Anaphylaxis Home Medications: Glycopyrrolate/Formoterol Fum [Bevespi Aerosphere Inhaler] 1 puff PO DAILY 11/16/17 Albuterol Neb [Proventil 0.083% Neb Soln] 2.5 mg NEB [id number] #60 amp 11/18/17 Ipratropium Neb [Atrovent*] 0.5 mg NEB [id number] #60 amp 11/18/17 Folic Acid 1 mg PO DAILY #30 tablet 02/05/18 Thiamine HCl [Vitamin B-1*] 100 mg PO DAILY #30 tablet 02/05/18 Albuterol Sulfate [Ventolin Hfa] 90 mcg NEB QID 01/24/24 Allopurinol 200 mg PO DAILY 01/24/24 Amlodipine [Norvasc*] 10 mg PO DAILY 01/24/24 Aspirin 81 mg PO DAILY 01/24/24 Atorvastatin Calcium 10 mg PO BEDTIME 01/24/24 Budesonide/Formoterol Fumarate [Breyna 160-4.5 Mcg Inhaler] 160 mcg NEB BID 01/24/24 Polyethylene Glycol 3350 [Miralax] 17 gm PO DAILY 01/24/24 Furosemide 2 tab PO DAILY 30 Days #60 tab 01/25/24 Potassium Chloride [Klor-Con M20] 20 meq PO DAILY 30 Days #30 tab 01/25/24 Roflumilast 500 mcg PO DAILY 30 Days #30 tab 01/25/24 acetaZOLAMIDE [Acetazolamide] 250 mg PO DAILY 30 Days #30 tab 01/25/24 levoFLOXacin [Levaquin] 750 mg PO DAILY 2 Days #2 tab 01/25/24 predniSONE [Deltasone*] 10 mg PO BID 4 Days #8 tab 01/25/24 - Past Medical/Surgical History Has patient received pneumonia vaccine in the past: Yes Diabetic: Yes -: HTN -: COPD-Home O2 and chronic steroids -: HDL -: DM non-insulin dependent -: CAD -: back surgery-fusion -: ankle right surgery -: finger surgery on the left Psychosocial/ Personal History: Lives at home with his - Family History father's side -: Cancer, Other (see notes) Notes: lung cancer - Social History Smoking Status: Former smoker Alcohol use: No CD- Drugs: No Caffeine use: Yes Review of Systems 10-point ROS is otherwise unremarkable Musculoskeletal: Back Pain Integumentary: Other (Perineal pain, drainage from perineal wound) Physical Examination - Physical Exam General: Alert, In no apparent distress, Oriented x3 HEENT: Atraumatic, PERRLA, EOMI Neck: Supple, 2+ carotid pulse no bruit, No LAD Respiratory: Clear to auscultation bilaterally, Normal air movement Cardiovascular: Regular rate/rhythm, Normal S1 S2 Gastrointestinal: Normal bowel sounds, No tenderness Musculoskeletal: No tenderness Integumentary: Other (Small open wound to perineal area with mild surrounding erythema, small amount bloody drainage) Neurological: Normal gait, Normal speech, Normal strength at 5/5 x4 extr, Normal tone, Normal affect Lymphatics: No axilla or inguinal lymphadenopathy - Studies Laboratory Data (last 24 hrs) 03/23/24 03/23/24 09:12 09:12 WBC 12.40 H Hgb 12.8 L Hct 37.5 L Plt Count 243 Sodium 138 Potassium 3.1 L BUN 22 H Creatinine 0.87 Glucose 104 Total Bilirubin 0.4 AST < 10 L ALT 21 Alkaline Phosphatase 92 Assessment and Plan - Plan Assessment: Perineal wound/cellulitis COPD on home O2/chronic steroids History of CAD Hypertension Chronic back pain/previous back surgeries/compression fractures Plan: Perineal wound/cellulitis Continue antibioticsvancomycin General Surgery consulted N.p.o. after midnight in case of need for debridement/intervention COPD on home O2/chronic steroids Continue supplemental oxygen, steroids As needed nebulizer treatments History of CAD Hold Plavix for now Hypertension Chronic back pain/previous back surgeries/compression fractures Continue home medications when verified DVT PPX: SCD Code status: Full Discharge Plan: Home Plan to discharge in: 48 Hours - Advance Directives Does patient have a Living Will: Yes Does patient have a Durable POA for Healthcare: Yes - Code Status/Comfort Care Code Status Assessed: Yes (Full code) Critical Care: No Time Spent Managing Pts Care (In Minutes): 65
[2024-03-23 18:06] LABS: Specific Gravity > 1.030 (1.005-1.030); Sqamous Epithelial <5 /HPF (None Seen); Urine Bacteria None Seen /HPF (<20); Urine Bilirubin NEGATIVE (Negative); Urine Blood 1+ (Negative); Urine Clarity Clear (Clear); Urine Color Light-Yellow (Yellow); Urine Culture Reflex Order NOT NEEDED; Urine Glucose NEGATIVE (Negative); Urine Ketones NEGATIVE (Negative); Urine Microscopic Reflex YN ORDER UMIC; Urine Nitrite NEGATIVE (Negative); Urine Protein NEGATIVE (Negative); Urine Urobilinogen Normal (Normal); Urine WBC <5 /HPF (<5); Urine Yeast (Budding) Trace /HPF (None Seen); Urine pH 5.5 (5.0-7.0)
[2024-03-23] MEDS: HYDROCODONE/APAP 5/325 MG TAB PO PRN (20:59)
[2024-03-24] MEDS: VANCOMYCIN 2 GM in NA CHLORIDE 0.9% 500 ML IVPB SCH (03:00)
[2024-03-24] MEDS: NA CHLORIDE 0.9% 500 ML ONE (03:03)
[2024-03-24] MEDS: VANCOMYCIN 1 GM/VIAL ONE (03:03)
[2024-03-24 06:40] LABS: Absolute Eosinophils 0.6 K/uL (0-0.5); Absolute Lymphocytes (CBC) 0.9 K/uL (0.7-4.9); Absolute Monocytes 0.9 K/uL (0.1-1.3); Absolute Neutrophil 8.4 K/uL (1.8-8.0); Basophils % 0.4 % (0-1.3); Eosinophils % 5.8 % (0-4.4); Hemoglobin 12.9 g/dL (13.6-17.9); Lymphocytes % 8.6 % (15.3-44.8); MCH 32.3 pg (27.0-35.0); MCV 95.1 fL (80-100); MPV 8.4 fL (7.6-11.3); Monocytes % 8.5 % (3.3-12.3); Neutrophils % 76.7 % (41.7-73.7); Platelets 265 thou/uL (152-406); Red Cell Distribution Width 12.7 % (12.1-15.2)
[2024-03-24 06:47] LABS: Anion Gap 10.2 mEq/L (5.0-15.0); Potassium 3.2 mEq/L (3.5-5.1)
[2024-03-24] MEDS ORDERED: ALBUTEROL 2.5 MG/3 ML NEB SOL NEB PRN (07:11)
[2024-03-24] MEDS: NA CHLORIDE 0.9% 250 ML ONE (08:25)
[2024-03-24] MEDS: KCL 20 MEQ/100 mL IVPB 20 MEQ/100 ML BAG IV SCH (08:26)
[2024-03-24] MEDS ORDERED: LIDOCAINE 2% MPF 5 ML VIAL ONE (11:09)
[2024-03-24] MEDS ORDERED: FENTANYL CITR 250 MCG/5 ML ONE (11:09)
[2024-03-24] MEDS ORDERED: propofoL 200 MG/20 ML VIAL IV ONE (11:09)
[2024-03-24] MEDS ORDERED: MIDAZOLAM HCL 2 MG/2 ML INJ ONE (11:09)
[2024-03-24] MEDS: NA CHLORIDE 0.9% 1,000 ML ONE (11:10)
[2024-03-24] MEDS ORDERED: ONDANSETRON 4 MG/2 ML VIAL ONE (11:13)
[2024-03-24] MEDS: LIDOCAINE HCL/EPINEPHRINE 20 ML MDV ONE (11:25)
[2024-03-24] MEDS: METHYLENE BLUE 1% 10 ML VIAL ONE (12:10)
--- NOTE | 2024-03-24 12:11 | P.OP ---
Preoperative diagnosis: Perineal Wound Postoperative diagnosis: Perineal Wound Primary procedure: Exam under anesthesia Secondary procedure: Debridement of Perineal Wound Anesthesia: GETA + Local Estimated blood loss: <5cc Specimen: Debridement Tissue Findings: ~ 2cm round perineal wound Complications: None Transferred to: Recovery Room Condition: Good
[2024-03-24] MEDS: HYDROMORPHONE HCL 1 MG/ML INJ ONE (12:33)
[2024-03-24 13:06] VITALS: O2SAT 97
--- NOTE | 2024-03-24 13:26 | CON ---
Date of Consultation: 03/23/2024 Brief History Of Present Illness: Patient is a 68-year-old man known to me from previous interaction s years ago whereby he had a perineal hidradenitis suppurativa debridement performed at [facility]. He did well after that, but has noticed a recurrence recently about several days ago to week ago of exacerbation. He thinks it may have begun as long as 3-4 months ago, but recently started bleedi ng. There was no pus, no drainage, but just william blood came out. However, he has been started on a nticoagulants as recently and he was uncertain if this was related, but he stated significant amount of blood loss occurred through this area and as such he came to the emergency room with the above sta lia concerns. After being admitted to the hospital, he has had essentially minimal to no bleeding fr om this area, but he did have pain which continued to progress and as such, he was concerned about th is. Past Medical History: Significant for hidradenitis of the perineum, hypertension, COPD, hyperlipidem ia, diabetes, coronary artery disease. Past Surgical History: Includes back fusion surgery, ankle surgery, finger surgery on the left and d ebridement of perineal wound several years ago. Allergies: TO PENICILLIN, BUSPAR, ZOLOFT, SPIRONOLACTONE, LISINOPRIL. Home Medications: Included glycopyrrolate, albuterol, Atrovent, folic acid, thiamine, allopurinol, N orvasc, aspirin, atorvastatin, Breyna, MiraLax, Lasix, Klor-Con, Roflumilast, acetazolamide, Levaquin , Deltasone, Plavix. Social History: He uses tobacco products. He has a significant tobacco use history and currently on ly dips. He drinks alcohol only socially. Denies recreational drug use. Family History: Significant for cancer of the lung in his father. Review of Systems: A 10-point review of systems other than the perineal issue. He has some low-grade back pain which is chronic, worse with laying flat on his back he states. Otherwise, 10-point review of systems other than in HPI is negative. Physical Examination: Vital Signs: At the time of my examination, his blood pressure is 145/71, pulse is 70, respiratory r ate is 18, temperature 97.5, SpO2 of 99% on room air. General: He is awake, alert, oriented. Psychiatric: Appropriate. Conversive. HEENT: Normocephalic. Sclerae icteric. Mucous membranes are moist. Oropharynx is clear. Neck: Supple. No JVD. Chest: Normal expansion and excursion. Cardiovascular: Regular rate and rhythm. Pulmonary: Decreased breath sounds bilaterally. Abdomen: Soft, nontender, nondistended. Focused examination of the perineal area shows an open mariia arun wound with tenderness, redness and some bloody drainage. Extremities: No clubbing, cyanosis, or edema. Skin: Warm and dry otherwise. Laboratory Data: His white blood cell count is 12.4, hemoglobin is 12.8, hematocrit is 37.5, platele t count is 243. His sodium 138, potassium 3.1, chloride 100, carbon dioxide is 33, BUN 22, creatinin e 0.8, glucose 104, total bilirubin 0.4, AST less than 10, ALT 21, alkaline phosphatase is 92. His U A showed 5-10 red blood cells, 1+ blood, trace yeast. He had a CT of the abdomen and pelvis on 03/23, which is officially read as acute multiple compression fractures at lumbar spine, small bilate ral inguinal hernias containing fat. Assessment And Plan: This is a 68-year-old male, who comes in with a perineal wound and drainage of a bloody drainage. 1. IV fluid hydration. 2. Antibiotic coverage. 3. Serial exam. 4. I have explained that if the patient has worsening, we will perform an exam under anesthesia, poss ible debridement and/or anoscopy to see if there is a fistulous connection or any other etiology ic h might be responsible for this recurrent issue. I have explained the risks, benefits, and alternati ves the above, so plan including but not limited to bleeding, infection, damage to tissues, incontine nce, impotence, difficulty voiding, blood clots, heart attack, stroke, other unforeseen complications in the perioperative period. Need for ongoing wound care. Patient displayed understanding of the manny paredese stated plan, agrees to proceed as indicated. STEVEN/WILLIAMS Voice ID: [id number] Report ID: [id number]
[2024-03-24] MEDS: POTASSIUM CL SA 10 MEQ TAB PO ONE (13:51)
--- NOTE | 2024-03-24 15:27 | P.DS ---
Admission Date: 03/23/24 Discharge Date: 03/24/24 Disposition: ROUTINE DISCHARGE Discharge Condition: GOOD Brief History of Present Illness: 68-year-old male with history of COPD on chronic home O2, steroids, hypertension, CAD presents to the emergency department with chief complaint of perineal wound. He and his family report that he has had this wound for 3 to 4 months but recently has started bleeding. They previously saw Dr. Lynch for this a couple of years back but had been trying to take care of it at home since then. Patient was evaluated in the emergency department found to have a mild leukocytosis, CT shows some compression fractures but does not mention any findings related to the perineal area. ED provider discussed case with general surgeryDr. Lynch who will see patient in hospital. On exam patient has a small open wound to the perineal area with mild erythema, patient and nurse report they are able to express a small amount of blood from this area. Hospital Course: Assessment: Perineal wound/cellulitis COPD on home O2/chronic steroids History of CAD Hypertension Chronic back pain/previous back surgeries/compression fractures Patient was admitted to the hospital for a perineal wound. He underwent debridement with general surgery today and is doing well postoperatively. He is stable for discharge and outpatient follow-up with his primary care doctor and general surgery. Dressing instructions as below: Daily dressing changes: Remove all packing irrigate with sterile saline then repack with half-inch plain packing damp to dry with Vashe then place dry gauze and tape. Diet:ADA Activity:Ad conchis Vital Signs/Physical Exam: Temp Pulse Resp BP Pulse Ox 98.6 F 63 18 140/68 95 03/24/24 12:48 03/24/24 12:48 03/24/24 12:48 03/24/24 12:48 03/24/24 08:00 General: Alert, In no apparent distress, Oriented x3 HEENT: Atraumatic, PERRLA Neck: Supple, JVD not distended Respiratory: Clear to auscultation bilaterally, Normal air movement Cardiovascular: Regular rate/rhythm, Normal S1 S2 Gastrointestinal: Normal bowel sounds, No tenderness Musculoskeletal: No tenderness Integumentary: Other (Wound perineal area with packing in place) Neurological: Normal speech, Normal tone, Normal affect Lymphatics: No axilla or inguinal lymphadenopathy Laboratory Data at Discharge: WBC 11.00 thou/uL (4.3-10.9) H 03/24/24 06:05 Hgb 12.9 g/dL (13.6-17.9) L 03/24/24 06:05 Hct 38.0 % (39.6-49.0) L 03/24/24 06:05 Plt Count 265 thou/uL (152-406) 03/24/24 06:05 Sodium 139 mEq/L (136-145) 03/24/24 06:05 Potassium 3.2 mEq/L (3.5-5.1) L 03/24/24 06:05 BUN 19 mg/dL (7-18) H 03/24/24 06:05 Creatinine 0.72 mg/dL (0.70-1.30) 03/24/24 06:05 Glucose 101 mg/dL (74-106) 03/24/24 06:05 Total Bilirubin 0.4 mg/dL (0.2-1.0) 03/23/24 09:12 AST < 10 U/L (15-37) L 03/23/24 09:12 ALT 21 U/L (16-61) 03/23/24 09:12 Alkaline Phosphatase 92 U/L (45-117) 03/23/24 09:12 Home Medications: Folic Acid 1 mg PO DAILY #30 tablet 02/05/18 Albuterol Sulfate [Ventolin Hfa] 90 mcg NEB QID 01/24/24 Amlodipine [Norvasc*] 10 mg PO DAILY 01/24/24 Aspirin 81 mg PO DAILY 01/24/24 Atorvastatin Calcium 40 mg PO BEDTIME 01/24/24 Budesonide/Formoterol Fumarate [Breyna 160-4.5 Mcg Inhaler] 160 mcg NEB BID 01/24/24 Potassium Chloride [Klor-Con M20] 20 meq PO DAILY 30 Days #30 tab 01/25/24 Aspirin Chewable [Aspirin Chewable*] 1 tab PO DAILY 03/24/24 Budesonide/Glycopyr/Formoterol [Breztri Aerosphere Inhaler] 2 puff IH BID 03/24/24 Bumetanide [Bumex] 1 tab PO DAILY 03/24/24 Clopidogrel Bisulfate [Plavix*] 1 tab PO DAILY 03/24/24 Isosorbide Mononitrate [Isosorbide Mononitrate ER] 1 tab PO DAILY 03/24/24 Roflumilast 1 tab PO DAILY 03/24/24 Tramadol HCl/Acetaminophen [Tramadol-Acetaminophn 37.5-325] 1 each PO TID PRN #15 tab 03/24/24 predniSONE [Deltasone*] 10 mg PO DAILY 03/24/24 New Medications: Tramadol HCl/Acetaminophen [Tramadol-Acetaminophn 37.5-325] 1 each PO TID PRN #15 tab PRN Reason: Pain Scale 5-7 (Moderate) Physician Discharge Instructions: Patient was admitted to the hospital for a perineal wound. He underwent debridement with general surgery today and is doing well postoperatively. He is stable for discharge and outpatient follow-up with his primary care doctor and general surgery. Dressing instructions as below: Daily dressing changes: Remove all packing irrigate with sterile saline then repack with half-inch plain packing damp to dry with Vashe then place dry gauze and tape. Diet:ADA Activity:Ad conchis Diet: ADA Activity: Ad conchis Followup: Kanu Lynch MD [ACTIVE - CAN ADMIT] - 1-2 Weeks (call to schedule an appointment) Layton Corrales NP [Primary Care Provider] - 1-2 Weeks (call to schedule an appointment) Time spent managing pt's care (in minutes): 42
[2024-03-24 16:04] VITALS: BP 144/85; TEMP 98.2
== END 2024-03-24 17:27 | disposition home or self-care (01) ==
LOC: ER 08:25 → INTOOBSV 11:28 → ERHOLD 11:28 → 4TH 17:54 → 5TH 03-24 13:53 → 4TH 03-24 14:12
PROVIDERS: ADMIT Hospitalist; ATTEND Hospitalist
PROC: 0JDB3ZZ Extraction of Perineum Subcutaneous Tissue and Fascia, Percutaneous Approach (ICD-10-PCS; principal; 2024-03-23)
DX: S31.501A Unspecified open wound of unspecified external genital organs, male, initial encounter (principal); L03.315 Cellulitis of perineum; I25.10 Atherosclerotic heart disease of native coronary artery without angina pectoris; I10 Essential (primary) hypertension; M54.9 Dorsalgia, unspecified; G89.29 Other chronic pain; J44.9 Chronic obstructive pulmonary disease, unspecified; Z99.81 Dependence on supplemental oxygen
CPT/HCPCS: 96365; 96367; 96368; 85025 ×2; 81001; 80048; 36415; 88304; 80202; 80053; 74177; 99285; 96366; 11042; Q9967; J3480; J2704; J7644 ×2; J2003; J2250; J3010; J1171; J2405; J0744; J7050 ×3; J7040; J7030